=== PATIENT | male | born 1965 | race Caucasian/White ===

== ENCOUNTER 2020-12-04 18:41 | Inpatient (IN) | payer MEDICARE ==
[2020-12-04] MEDS ORDERED: fentaNYL Citrate/PF 2,000 MCG in Sodium Chloride 0.9% 60 ML IV SCH (19:00)
[2020-12-04] MEDS ORDERED: Albuterol Sulfate 2.5 mg/3 ml Neb ONE (19:14)
[2020-12-04 19:30] LABS: #Eosinphils 0.1 thou/uL (0.0-0.7); #Lymphocytes 0.6 thou/uL (1.20-3.40); #Monocytes 1.1 thou/uL (0.11-0.59); #Neutrophils 14.9 thou/uL (1.40-6.50); %Basophils 0.2 % (0.0-1.0); %Eosinophils 0.3 % (0.0-10.0); %Lymphocytes 3.6 % (21.0-51.0); %Monocytes 6.3 % (0.0-10.0); %Neutrophils 89.6 % (42.0-75.0); Hemoglobin 13.5 g/dL (14.0-18.0); Mean Corpuscular HGB CONC 31.9 g/dL (32.0-36.0); Mean Corpuscular Hemoglobin 29.2 pg (27.0-31.0); Mean Corpuscular Volume 91.5 fL (78.0-98.0); Mean Platelet Volume 7.6 fL (7.4-10.4); Platelet Count 295 thou/uL (130-400); RBC Distribution Width 13.9 % (11.5-14.5); Red Blood Cell (RBC) Count 4.61 mill/uL (4.70-6.10); White Blood Cell (WBC) Count 16.6 thou/uL (4.8-10.8)
[2020-12-04 19:37] LABS: Actual Bicarbonate (HCO3a) 26.8 mEq/L (22-28); Analyzer IN Cardio ER; Base Excess (BEa) -1.8 mEq/L (-2.0 to +3.0); Calcium, Ionized (arterial) 1.13 mmol/L (1.12-1.30); Carboxyhemoglobin (COHb) 1.6 gm% (0.0-3.0); Hemoglobin (Hb) 13.4 g/dL (14.0-18.0); O2 Tension (PaO2), arterial 301.8 mmHg (80.0-100.0); Potassium - ABG Lab 4.41 mmol/L (3.70-5.30)
[2020-12-04 19:54] LABS: ALT (SGPT) 21 U/L (8-55); AST (SGOT) 23 U/L (5-34); Albumin 3.4 g/dL (3.5-5.0); Alkaline Phosphatase 114 U/L (40-110); Anion Gap 13 mmol/L (10-20); BUN (Urea Nitrogen) 16 mg/dL (8.4-25.7); Bilirubin, Total 0.4 mg/dL (0.2-1.2); Calc. Creatinine Clearance 0 mL/min (70-130); Calcium 8.1 mg/dL (7.8-10.44); Carbon Dioxide 31 mmol/L (22-29); Chloride 97 mmol/L (98-107); Globulin 3.5 g/dL (2.4-3.5); Glucose 248 mg/dL (70-105); Potassium 4.9 mmol/L (3.5-5.1); Protein, Total 6.9 g/dL (6.0-8.3); Sodium 136 mmol/L (136-145)
[2020-12-04 19:57] LABS: CO2 Tension 63.6 mmHg (35.0-45.0); pH, Arterial 7.24 (7.35-7.45)
[2020-12-04 19:58] LABS: Puncture Site LBA
--- NOTE | 2020-12-04 20:00 | RAD ---
CHEST ONE VIEWS: 12/04/20 INDICATIONS: History of intubation with respiratory failure. COMPARISON: Prior exam dated 12/04/20 at 5:18 p.m. FINDINGS: There is increased air space opacity involving the right lung base suspicious for aspiration. The pat ient is intubated. Gastric catheter appears to project below the left hemidiaphragm beyond the field of view. Left lung base appears relatively clear. No pneumothorax is evident. No acute osseous abnorm ality is evident. IMPRESSION: Worsening air space opacity of the right lower lobe may reflect aspiration or pneumonia. POS: BH
[2020-12-04 20:27] LABS: CKMB 4.2 ng/mL (0-6.6)
[2020-12-04] MEDS ORDERED: Acetaminophen 650 MG Suppository PR PRN (20:50)
[2020-12-04] MEDS ORDERED: Propofol 1,000 MG/100 ML VIAL IV ONE (21:35)
[2020-12-04] MEDS ORDERED: Fentanyl BOLUS 250 ML IVPB PRN (21:45)
[2020-12-04] MEDS ORDERED: Propofol BOLUS 1,000 MG/100 ML VIAL IV PRN (21:45)
[2020-12-04] MEDS ORDERED: DISCONTINUE PREVIOUS NARCOTIC PAIN MEDICATIONS AND BENZODIAZEPINES FS SCH (21:45)
[2020-12-04] MEDS ORDERED: Ventilator Sedation Protocol 1 EACH FS SCH (21:45)
[2020-12-04] MEDS ORDERED: Morphine 2 MG/ML VIAL SLOW IVP PRN (21:45)
[2020-12-04] MEDS ORDERED: Vecuronium 10 MG VIAL ONE (21:57)
[2020-12-04] MEDS ORDERED: Sterile Water 10 ML ONE (21:57)
[2020-12-04] MEDS ORDERED: cefTRIAXone\\ROCEPHIN 1 GM in Sodium Chloride 0.9% 100 ML IVPB SCH (22:00)
--- NOTE | 2020-12-04 22:37 | PDOC.HHP ---
Hospitalist HPI - History of Present Illness SOB, Brought in on ventilator support History of Present Illness: This is a 55-year-old male patient with a history of COPD, hypertension and heart failure who was transferred from [place]. Apparently he suffered respiratory arrest at home likely secondary to COPD exacerbation and pneumonia. His was in the room at the time of my evaluation. He was on the ventilator. She notes that he has been having intermittent shortness of breath for the past couple of days however today it became severe. The activated EMS. On EMS arrival he suddenly went into respiratory arrest and the attempted intubation. He was intubated with a Quinn tube and this was exc hanged with endotracheal intubation on arrival at [place]. On arrival at [place] his blood pressure was 144/85, pulse 113, saturating 100% on 5 valve mask. His labs showed ABG, pH 7.24, PCO2 63.6, PO2 301. CBC showed leukocytosis of 16.6 with no bands but neutrophilia. Hemoglobin is 13.5 and platelets 295. Chemistry showed creatinine 1. Fall with no baseline in chart. Bicarb was 31 glucose 248. Troponin was 0.554 and lactate was 0.8. His initial chest x-ray seemed relatively clear however repeat lactate increased to call opacity in the right lung base suspicious for aspiration. He was started on azithromycin, Rocephin and duo nebs. Also received 250mg Solu-Medrol. He was then referred to us for further evaluation. While here he received albuterol inhalation and fentanyl for sedation. Repeat troponin*reduction from 0.5-0.015. Hospitalist team consulted and was admitted to CCU. While she was In CCU it was noted that his peak pressure was elevated at 48 which did not resolve with respiration. She got as needed rocuronium for paralysis which improved his peak pressurethis was done in consultation with pulmonology Repeat ABG however showed worsening pH down to 7.18 in spite of reducing bicarb. Lactic was elevated to 3.5. He was started on abscess protocol with 30 mils per KG fluids antibiotics changed to vancomycin and Zosyn with azithromycin. Hospitalist ROS - Review of Systems ROS unobtainable: due to mental status - Medication Medications: Active Medications Generic Name Dose Route Start Last Admin Trade Name Freq PRN Reason Stop Dose Admin Albuterol/Ipratropium 3 ml 12/04/20 22:30 12/04/20 21:53 Ipratropium/Albuterol Sulfate 3 Ml Neb NEB 3 ml [id number] RUBIA Administration Ceftriaxone Sodium 1 gm/ 100 mls @ 200 mls/hr 12/04/20 22:00 12/04/20 22:35 Sodium Chloride IVPB 100 mls Q24HR RUBIA Administration Hospitalist History - Past Medical History Other Medical History: Hypertension, COPD, heart failure - Family History Family History: reports: no pertinent history - Social History Smoking Status: Current every day smoker Alcohol: reports: None Living Situation: With Family - Exam General - other findings: Intubated and nonverbal. Eye - other findings: Pupils constricted minimally reactive bilaterally ENT: normocephalic atraumatic, no oropharyngeal lesions Heart: RRR, no murmur, no gallops Respiratory: CTAB, no wheezes, no rales, no ronchi Gastrointestinal - other findings: Abdomen obese, bowel sounds present Extremities: no cyanosis, no clubbing, 1+ LE edema Neurological - other findings: Very little spontaneous movement. On sedation Psychiatric - other findings: Unable to assess Hospitalist Results - Labs Result Diagrams: 12/04/20 19:19 12/04/20 23:42 Lab results: WBC 16.6 thou/uL (4.8-10.8) H 12/04/20 19:19 Hgb 13.5 g/dL (14.0-18.0) L 12/04/20 19:19 Hct 42.2 % (42.0-52.0) 12/04/20 19:19 MCV 91.5 fL (78.0-98.0) 12/04/20 19:19 Plt Count 295 thou/uL (130-400) 12/04/20 19:19 Neutrophils % 89.6 % (42.0-75.0) H 12/04/20 19:19 ABG pH 7.24 (7.35-7.45) L* 12/04/20 19:30 ABG pCO2 63.6 mmHg (35.0-45.0) H* 12/04/20 19:30 ABG pO2 301.8 mmHg (80.0-100.0) H 12/04/20 19:30 Sodium 136 mmol/L (136-145) 12/04/20 19:19 Potassium 4.9 mmol/L (3.5-5.1) 12/04/20 19:19 Chloride 97 mmol/L (98-107) L 12/04/20 19:19 Carbon Dioxide 31 mmol/L (22-29) H 12/04/20 19:19 BUN 16 mg/dL (8.4-25.7) 12/04/20 19:19 Creatinine 1.32 mg/dL (0.7-1.3) H 12/04/20 19:19 Glucose 248 mg/dL (70-105) H 12/04/20 19:19 Calcium 8.1 mg/dL (7.8-10.44) 12/04/20 19:19 Total Bilirubin 0.4 mg/dL (0.2-1.2) 12/04/20 19:19 AST 23 U/L (5-34) 12/04/20 19:19 ALT 21 U/L (8-55) 12/04/20 19:19 Alkaline Phosphatase 114 U/L (40-110) H 12/04/20 19:19 CK-MB (CK-2) 4.2 ng/mL (0-6.6) 12/04/20 19:19 Troponin I 0.554 ng/mL (< 0.028) H* 12/04/20 19:19 B-Natriuretic Peptide 10.1 pg/mL (0-100) 12/04/20 19:19 Serum Total Protein 6.9 g/dL (6.0-8.3) 12/04/20 19:19 Albumin 3.4 g/dL (3.5-5.0) L 12/04/20 19:19 Hospitalist H&P A/P - Plan Plan: This a 55-year-old male patient history of COPD, hypertension who was brought in intubated from [place] on account of respiratory arrest. Likely etiology COPD exacerbation/pneumonia. Acute hypoxic respiratory failure In the setting of COPD/pneumonia On ventilator support Continue monitor Appreciate pulmonology input. Sepsis Repeat lactate went up from 0.8-3.5 Also patient having leukocytosis and respiratory arrest. 30 mils per KG IV fluids Trend lactate Initially on azithromycin and ceftriaxone. We will do Zosyn and vancomycin for now Follow-up blood culturestaken at medicine COPD exacerbation Solu-Medrol, duo nebs Antibiotics as above. Pneumonia Likely aspiration in left lower base Continue antibiotics above History of heart failure No echo on file Echo in a.m. NSTEMI Initial troponin 0.5 now down to within normal range. Likely demand/hypoxia Monitor on telemetry. CODE STATUSfull code VTE prophylaxislow
[2020-12-04] MEDS: Azithromycin 500 MG in Sodium Chloride 0.9% 250 ML 250 ML IVPB SCH (22:51)
[2020-12-04 22:57] LABS: Actual Bicarbonate (HCO3a) 18.7 mEq/L (22-28); Base Excess (BEa) -9.2 mEq/L (-2.0 to +3.0); CO2 Tension 50.8 mmHg (35.0-45.0); Calcium, Ionized (arterial) 0.43 mmol/L (1.12-1.30); Carboxyhemoglobin (COHb) 1.5 gm% (0.0-3.0); Hemoglobin (Hb) 8.5 g/dL (14.0-18.0); Potassium - ABG Lab 2.04 mmol/L (3.70-5.30)
[2020-12-04 23:00] LABS: O2 Tension (PaO2), arterial 45.5 mmHg (80.0-100.0); pH, Arterial 7.18 (7.35-7.45)
[2020-12-04 23:01] LABS: Puncture Site RBA; Troponin I 0.015 ng/mL (< 0.028)
[2020-12-04] MEDS ORDERED: Sodium Chloride 0.9% 500 ML IV SCH (23:30)
[2020-12-04] MEDS ORDERED: SODIUM CHLORIDE 0.9% IV SCH (23:45)
--- NOTE | 2020-12-04 23:46 | RAD ---
PORTABLE CHEST: Date: 12/04/2020 HISTORY: Hypoxia. COMPARISON: Earlier exam same date. FINDINGS: Endotracheal and NG tubes are in satisfactory position. The right lower lobe parenchymal changes seen on the prior examination have almost completely resolved. IMPRESSION: Almost complete resolution of the right basilar parenchymal lung change. POS: OFF
[2020-12-05] MEDS: methylPREDNISolone Sod Succ 40 MG VIAL IVP SCH ×5 (00:16→23:12)
[2020-12-05] MEDS: Vancomycin 1.5 GRAM/300 ML BAG 1.5 GM in Premix Bag 1 BAG IVPB SCH ×3 (00:16→23:12)
[2020-12-05] MEDS: Vecuronium 10 MG VIAL IV PRN ×7 (00:27→15:48)
[2020-12-05] MEDS: Sterile Water 10 ML VIAL IVP PRN ×3 (00:27→04:43)
[2020-12-05 00:29] LABS: AST (SGOT) 24 U/L (5-34); Albumin 3.3 g/dL (3.5-5.0); Anion Gap 17 mmol/L (10-20); BUN (Urea Nitrogen) 14 mg/dL (8.4-25.7); Bilirubin, Total 0.5 mg/dL (0.2-1.2); Calc. Creatinine Clearance 92 mL/min (70-130); Calcium 8.3 mg/dL (7.8-10.44); Carbon Dioxide 25 mmol/L (22-29); Chloride 99 mmol/L (98-107); Globulin 3.6 g/dL (2.4-3.5); Glucose 184 mg/dL (70-105); Potassium 5.1 mmol/L (3.5-5.1); Protein, Total 6.9 g/dL (6.0-8.3); Sodium 136 mmol/L (136-145)
[2020-12-05 00:30] LABS: Alkaline Phosphatase 109 U/L (40-110)
[2020-12-05 00:33] LABS: ALT (SGPT) 21 U/L (8-55)
[2020-12-05] MEDS: Sodium Chloride 0.9% 1,000 ML IV SCH ×4 (01:00→21:24)
[2020-12-05] MEDS ORDERED: Sodium Bicarb 50 MEQ/50 ML Abboject 8.4% SYRINGE IVP SCH (01:30)
[2020-12-05] MEDS: Piperacillin/Tazobactam 4.5 GM in Sodium Chloride 0.9% 100 ML IVPB SCH ×3 (01:45→17:31)
[2020-12-05 02:26] LABS: #Lymphocytes 0.6 thou/uL (1.20-3.40); #Monocytes 0.6 thou/uL (0.11-0.59); #Neutrophils 17.5 thou/uL (1.40-6.50); %Basophils 0.2 % (0.0-1.0); %Eosinophils 0.2 % (0.0-10.0); %Monocytes 3.3 % (0.0-10.0); %Neutrophils 93.3 % (42.0-75.0); Hemoglobin 12.3 g/dL (14.0-18.0); Mean Corpuscular HGB CONC 30.9 g/dL (32.0-36.0); Mean Corpuscular Hemoglobin 28.2 pg (27.0-31.0); Mean Corpuscular Volume 91.3 fL (78.0-98.0); Mean Platelet Volume 7.7 fL (7.4-10.4); Platelet Count 258 thou/uL (130-400); RBC Distribution Width 13.7 % (11.5-14.5); Red Blood Cell (RBC) Count 4.34 mill/uL (4.70-6.10); White Blood Cell (WBC) Count 18.7 thou/uL (4.8-10.8)
[2020-12-05 02:44] LABS: Lactic Acid 4.4 mmol/L (0.5-2.2)
[2020-12-05 02:59] LABS: Troponin I 0.031 ng/mL (< 0.028)
[2020-12-05 03:28] LABS: Anion Gap 19 mmol/L (10-20); BUN (Urea Nitrogen) 15 mg/dL (8.4-25.7); Calc. Creatinine Clearance 113 mL/min (70-130); Calcium 7.8 mg/dL (7.8-10.44); Carbon Dioxide 22 mmol/L (22-29); Chloride 103 mmol/L (98-107); Glucose 167 mg/dL (70-105); Potassium 4.6 mmol/L (3.5-5.1); Sodium 139 mmol/L (136-145)
[2020-12-05 06:18] LABS: Lactic Acid 3.3 mmol/L (0.5-2.2)
[2020-12-05] MEDS ORDERED: Fentanyl CADD 100 ML ONE ×2 (06:26→19:24)
[2020-12-05] MEDS: Fentanyl CADD 100 ML IV SCH ×2 (06:32→19:28)
[2020-12-05] MEDS: Enoxaparin Sodium 40 MG/0.4 ML SYRINGE SC SCH (08:20)
[2020-12-05] MEDS: Lorazepam 2 MG/ML VIAL SLOW IVP PRN ×4 (08:20→15:47)
[2020-12-05] MEDS ORDERED: Vancomycin 1.5 GRAM/300 ML BAG 1.5 GM in Premix Bag 1 BAG IVPB SCH (09:00)
[2020-12-05 10:52] LABS: Actual Bicarbonate (HCO3a) 28.9 mEq/L (22-28); Base Excess (BEa) 1.8 mEq/L (-2.0 to +3.0); Calcium, Ionized (arterial) 1.12 mmol/L (1.12-1.30); Carboxyhemoglobin (COHb) 0.4 gm% (0.0-3.0); Hemoglobin (Hb) 12.3 g/dL (14.0-18.0); O2 Tension (PaO2), arterial 88.8 mmHg (80.0-100.0); Potassium - ABG Lab 4.64 mmol/L (3.70-5.30); pH, Arterial 7.32 (7.35-7.45)
[2020-12-05 11:06] LABS: Puncture Site RRA
--- NOTE | 2020-12-05 11:16 | CON ---
DATE OF CONSULTATION: 12/05/2020 This is a 45 minutes of critical care time. REASON FOR CONSULTATION: Acute respiratory failure. HISTORY OF THE PRESENT ILLNESS: This is a 55-year-old male, who was brought to the hospital last night as a transfer from [place]. He suffered a respiratory arrest secondary to a COPD exacerbation. He was intubated, placed on steroids. He has been found to have high peak compared to plateau pressures. He will wake up on mechanical ventilation. PAST MEDICAL HISTORY: COPD, congestive heart failure, and hypertension. PAST SURGICAL HISTORY: None. SOCIAL HISTORY: Apparently smokes at least a pack per day. Does not consume alcohol. Does not use any illicit drugs. MEDICATIONS: Prior to admission, not known at this time. Current inpatient medications reviewed, see chart. REVIEW OF SYSTEMS: Not obtainable. ALLERGIES: NONE. FAMILY MEDICAL HISTORY: Negative. PHYSICAL EXAMINATION: VITAL SIGNS: Temperature 97.7, pulse 90, blood pressure 97/60, respiratory rate 25, and O2 saturation 95%. He is 5 feet 8 inches and weight is 218 pounds. HEENT: Unremarkable. NECK: No adenopathy or JVD. LUNGS: Tight end-expiratory wheezing. CARDIAC: No murmur. ABDOMEN: Obese, soft, and nontender. EXTREMITIES: No edema. LABORATORY DATA: White blood cell count 18.7, hematocrit 39.7, and platelet count 258. Last ABG was last night, pH was 7.18, pCO2 of 50, and pO2 of 45. I suspect that was probably a venous gases as his initial blood gas showed normal oxygenation. Sodium is 139, potassium 4.6, chloride 103, CO2 of 22, BUN 15, creatinine 0.9, and glucose 167. Lactate is 3.3. His x-ray shows hyperinflation with flattened diaphragms. No mass, effusion, or infiltrate. His BNP is 10.1. ASSESSMENT: 1. Chronic obstructive pulmonary disease exacerbation. 2. Acute hypoxic and hypercapnic respiratory failure requiring mechanical ventilation. PLAN: The patient is on multiple antibiotics. I do not really see a reason to put him on vancomycin unless we know he has an underlying Staph infection, so I would advocate stopping that. He is on IV steroids and nebulization treatments. His nebulization treatments probably need to be increased every 3 hours given his degree of bronchospasm. I spoke with his sister at bedside. Job ID: [id number]
--- NOTE | 2020-12-05 15:22 | PDOC.HOSPP ---
- Subjective Encounter Date: 12/05/20 Encounter Time: 12:00 Subjective: Patient seen for follow-up regarding acute respiratory failure. Patient is intubated, could not complete review of systems. - Objective Vital Signs & Weight: Vital Signs (12 hours) Temp Pulse Resp Pulse Ox 12/05/20 15:04 91 12/05/20 14:00 22 H 12/05/20 12:00 98.2 F 22 H 12/05/20 10:31 90 12/05/20 10:00 22 H 12/05/20 08:00 22 H 12/05/20 07:24 99 12/05/20 07:11 78 12/05/20 07:00 97.7 F 12/05/20 06:00 22 H 12/05/20 04:00 98.5 F 22 H Weight Admit Weight 218 lb Weight 218 lb 11.177 oz Most Recent Monitor Data Heart Rate from ECG 93 NIBP 93/46 NIBP BP-Mean 61 Respiration from ECG 22 SpO2 97 I&O: 12/04/20 12/05/20 12/06/20 06:59 06:59 06:59 Intake Total 4604 250 Output Total 790 290 Balance 3814 -40 Result Diagrams: 12/05/20 02:19 12/05/20 02:19 Additional Labs: I reviewed patient's labs and MAR EKG Reviewed by me: Yes (Normal sinus rhythm on telemetry) Hospitalist ROS - Review of Systems ROS unobtainable: due to endotracheal tube - Medication Medications: Active Medications Generic Name Dose Route Start Last Admin Trade Name Freq PRN Reason Stop Dose Admin Albuterol/Ipratropium 3 ml 12/05/20 13:00 12/05/20 14:58 Ipratropium/Albuterol Sulfate 3 Ml Neb NEB 3 ml [id number] RUBIA Administration Enoxaparin Sodium 40 mg 12/05/20 09:00 12/05/20 08:20 Enoxaparin Sodium 40 Mg/0.4 Ml Syringe SC 40 mg 0900 RUBIA Administration Fentanyl 100 mls @ 0 mls/hr 12/04/20 21:45 12/05/20 06:32 Fentanyl Cadd IV 01/03/21 21:45 100 mls INF RUBIA Administration Protocol Per Protocol Azithromycin 500 mg/ Sodium 250 mls @ 250 mls/hr 12/04/20 22:30 12/04/20 22:51 Chloride IVPB 250 mls Q24HR RUBIA Administration Sodium Chloride 1,000 mls @ 100 mls/hr 12/04/20 23:45 12/05/20 09:19 Normal Saline 0.9% IV 1,000 mls .Q10H RUBIA Administration Vancomycin HCl 1.5 gm/ Device 300 mls @ 200 mls/hr 12/04/20 23:59 12/05/20 11:32 IVPB 300 mls 1200,2359 RUBIA Administration Piperacillin Sod/Tazobactam 100 mls @ 200 mls/hr 12/05/20 02:00 12/05/20 09:22 Sod 4.5 gm/ Sodium Chloride IVPB 100 mls 0200,1000,1800 RUBIA Administration Lorazepam 2 mg 12/04/20 21:45 12/05/20 13:34 Lorazepam 2 Mg/Ml Vial SLOW IVP 01/03/21 21:45 2 mg Q1H PRN Administration Breakthrough agitation Methylprednisolone Sodium Succinate 40 mg 12/04/20 23:59 12/05/20 11:32 Methylprednisolone Sod Succ 40 Mg Vial IVP 40 mg Q6HR RUBIA Administration Sterile Water 10 ml 12/04/20 22:04 12/05/20 04:43 Sterile Water 10 Ml Vial IVP 10 ml Q30MIN PRN Administration NEEDED FOR RECONSTITUTION Vecuronium [place] 10 mg 12/04/20 22:04 12/05/20 13:34 Vecuronium 10 Mg Vial IV 10 mg Q30MIN PRN Administration Spasm - Exam General - other findings: Intubated ENT: normocephalic atraumatic Neck: supple Heart: RRR Respiratory: CTAB Gastrointestinal: soft, non-tender Skin: no rashes Psychiatric - other findings: Unable to assess Hosp A/P - Plan Assessment/plan: Acute hypoxic respiratory failure History of COPD/pneumonia On ventilator support PCCM following Sepsis Continue Zosyn and vancomycin Follow-up blood cultures COPD exacerbation Continue Solu-Medrol, duo nebs Antibiotics as above. Pneumonia Continue Zosyn and vancomycin History of heart failure Follow-up on 2D echo NSTEMI Type II secondary to demand. Monitor on telemetry.
[2020-12-05] MEDS: Propofol 1,000 MG/100 ML VIAL IV PRN (21:23)
[2020-12-05] MEDS: Azithromycin 500 MG in Sodium Chloride 0.9% 250 ML 250 ML IVPB SCH (21:52)
[2020-12-06] MEDS: Piperacillin/Tazobactam 4.5 GM in Sodium Chloride 0.9% 100 ML IVPB SCH ×3 (01:07→17:32)
[2020-12-06 03:48] LABS: Anion Gap 12 mmol/L (10-20); BUN (Urea Nitrogen) 22 mg/dL (8.4-25.7); Calc. Creatinine Clearance 143 mL/min (70-130); Calcium 7.4 mg/dL (7.8-10.44); Carbon Dioxide 23 mmol/L (22-29); Chloride 107 mmol/L (98-107); Glucose 169 mg/dL (70-105); Potassium 4.3 mmol/L (3.5-5.1); Sodium 138 mmol/L (136-145)
[2020-12-06] MEDS: Sodium Chloride 0.9% 1,000 ML IV SCH ×2 (04:07→17:34)
[2020-12-06 04:20] LABS: Band 23 % (5-11); Hemoglobin 11.3 g/dL (14.0-18.0); Hypochromia SLIGHT = 6-15 cells (100X) (0-5/hpf); Lymphocytes 5 % (21-51); MDiff Complete? YES; Mean Corpuscular HGB CONC 31.8 g/dL (32.0-36.0); Mean Corpuscular Hemoglobin 28.9 pg (27.0-31.0); Mean Corpuscular Volume 91.1 fL (78.0-98.0); Mean Platelet Volume 8.3 fL (7.4-10.4); Monocytes 6 % (0-10); Neutrophil 66 % (42-75); Platelet Count 289 thou/uL (130-400); Platelet Morphology Comment Appears Adequate; RBC Distribution Width 13.9 % (11.5-14.5); White Blood Cell (WBC) Count 20.5 thou/uL (4.8-10.8)
[2020-12-06] MEDS: methylPREDNISolone Sod Succ 40 MG VIAL IVP SCH ×4 (05:06→23:23)
[2020-12-06] MEDS: Propofol 1,000 MG/100 ML VIAL IV PRN ×2 (05:35→13:55)
--- NOTE | 2020-12-06 08:04 | RAD ---
Portable frontal chest radiograph: 12/06/2020 COMPARISON: 12/04/2020 HISTORY: Pneumonia FINDINGS: Stable endotracheal tube and nasogastric tube. No pneumothorax is evident. Diffuse increase d linear interstitial density noted with a perihilar and bibasilar predominance. Airspace disease noted in the lung bases, left greater than right. Aeration has worsened within the lung bases when co mpared to the 12/04/2020 exam. IMPRESSION: Nonspecific interstitial and alveolar opacity, most significant within the lung bases, wo rsened when compared to the most recent prior exam. Question Covid pneumonia.
[2020-12-06] MEDS: Enoxaparin Sodium 40 MG/0.4 ML SYRINGE SC SCH (08:57)
[2020-12-06] MEDS: Pantoprazole 40 MG VIAL IVP SCH (08:58)
[2020-12-06] MEDS: Nicotine 21 MG PATCH TD SCH (08:58)
[2020-12-06] MEDS ORDERED: Fentanyl CADD 100 ML ONE (09:36)
[2020-12-06] MEDS: Fentanyl CADD 100 ML IV SCH (09:42)
[2020-12-06 11:41] LABS: Vancomycin, Trough 13.5 ug/mL
[2020-12-06] MEDS: Bacteriostatic Water 30 ML VIAL FS PRN ×2 (11:51→17:33)
[2020-12-06] MEDS: Vancomycin HCl 1.75 GM in Sodium Chloride 0.9% 500 ML IVPB SCH ×2 (12:26→23:47)
--- NOTE | 2020-12-06 17:19 | PDOC.HOSPP ---
- Subjective Encounter Date: 12/06/20 Encounter Time: 11:00 Subjective: Patient seen for follow-up regarding hypoxic respiratory failure. Could not complete review of systems secondary to intubated status. - Objective Vital Signs & Weight: Vital Signs (12 hours) Temp Pulse Resp Pulse Ox 12/06/20 14:50 92 12/06/20 12:00 98.9 F 12/06/20 08:00 98.4 F 22 H 96 12/06/20 07:55 78 12/06/20 06:00 23 H Weight Admit Weight 218 lb Weight 224 lb 13.944 oz Most Recent Monitor Data Heart Rate from ECG 93 NIBP 113/63 NIBP BP-Mean 79 Respiration from ECG 16 SpO2 94 I&O: 12/05/20 12/06/20 12/07/20 06:59 06:59 06:59 Intake Total 4604 3781 550 Output Total 790 1020 410 Balance 3814 2761 140 Result Diagrams: 12/06/20 03:00 12/06/20 03:00 Additional Labs: Labs and MAR reviewed by nv Hospitalist ROS - Review of Systems ROS unobtainable: due to endotracheal tube - Medication Medications: Active Medications Generic Name Dose Route Start Last Admin Trade Name Freq PRN Reason Stop Dose Admin Albuterol/Ipratropium 3 ml 12/05/20 13:00 12/06/20 14:49 Ipratropium/Albuterol Sulfate 3 Ml Neb NEB 3 ml [id number] RUBIA Administration Enoxaparin Sodium 40 mg 12/05/20 09:00 12/06/20 08:57 Enoxaparin Sodium 40 Mg/0.4 Ml Syringe SC 40 mg 0900 RUBIA Administration Fentanyl 100 mls @ 0 mls/hr 12/04/20 21:45 12/06/20 09:42 Fentanyl Cadd IV 01/03/21 21:45 100 mls INF RUBIA Administration Protocol Per Protocol Azithromycin 500 mg/ Sodium 250 mls @ 250 mls/hr 12/04/20 22:30 12/05/20 21:52 Chloride IVPB 250 mls Q24HR RUBIA Administration Sodium Chloride 1,000 mls @ 100 mls/hr 12/04/20 23:45 12/06/20 04:07 Normal Saline 0.9% IV 1,000 mls .Q10H RUBIA Administration Piperacillin Sod/Tazobactam 100 mls @ 200 mls/hr 12/05/20 02:00 12/06/20 09:03 Sod 4.5 gm/ Sodium Chloride IVPB 100 mls 0200,1000,1800 RUBIA Administration Vancomycin HCl 1.75 gm/ Sodium 500 mls @ 250 mls/hr 12/06/20 12:00 12/06/20 12:26 Chloride IVPB 500 mls 1200,2359 RUBIA Administration Lorazepam 2 mg 12/04/20 21:45 12/05/20 15:47 Lorazepam 2 Mg/Ml Vial SLOW IVP 01/03/21 21:45 2 mg Q1H PRN Administration Breakthrough agitation Methylprednisolone Sodium Succinate 40 mg 12/04/20 23:59 12/06/20 11:51 Methylprednisolone Sod Succ 40 Mg Vial IVP 40 mg Q6HR RUBIA Administration Nicotine 21 mg 12/06/20 09:00 12/06/20 08:58 Nicotine 21 Mg Patch TD 21 mg DAILY RUBIA Administration Pantoprazole Sodium 40 mg 12/06/20 09:00 12/06/20 08:58 Pantoprazole 40 Mg Vial IVP 40 mg DAILY RUBIA Administration Propofol 1,000 mg 12/04/20 21:45 12/06/20 13:55 Propofol 1,000 Mg/100 Ml Vial IV 01/03/21 21:45 1,000 mg INF PRN Administration TO ACHIEVE GOAL RASS Protocol Sterile Water 10 ml 12/04/20 22:04 12/05/20 04:43 Sterile Water 10 Ml Vial IVP 10 ml Q30MIN PRN Administration NEEDED FOR RECONSTITUTION Sterile Water 1 ml 12/04/20 22:15 12/06/20 11:51 Bacteriostatic Water 30 Ml Vial FS 1 ml PRN PRN Administration RECONSTITUTION Vecuronium [place] 10 mg 12/04/20 22:04 12/05/20 15:48 Vecuronium 10 Mg Vial IV 10 mg Q30MIN PRN Administration Spasm - Exam General - other findings: Intubated, obese ENT: normocephalic atraumatic Neck: no thyromegaly, no lymphadenopathy Heart: RRR Respiratory: CTAB Gastrointestinal: soft, normal bowel sounds Skin: no rashes Psychiatric - other findings: Could not assess Hosp A/P - Plan Assessment/plan: Acute hypoxic respiratory failure Secondary to COPD exacerbation. Continue ventilatory support. Pulmonary and critical care medicine following. Sepsis Patient is on Zosyn and vancomycin Follow-up blood cultures COPD exacerbation Patient is on Solu-Medrol, duo nebs Continue Zosyn and vancomycin Pneumonia Continue Zosyn and vancomycin History of heart failure Diastolic heart failure based on 2D echocardiogram, stable. NSTEMI Type II secondary to demand. Continue to monitor on telemetry.
--- NOTE | 2020-12-06 18:53 | PRG ---
DATE OF SERVICE: 12/06/2020 SUBJECTIVE: Rigo Mathur remains mechanically ventilated. He is sedated. Heart rates in the 90s. FiO2 was turned down to 50% today. Respiratory rate was turned down. OBJECTIVE: VITAL SIGNS: Blood pressure 113/63. LUNGS: Distant and clear. He still has a prolonged expiratory phase. HEART: Regular rhythm. ABDOMEN: Soft. EXTREMITIES: Without asymmetry or edema. LABORATORY DATA: Electrolytes are normal. Creatinine is 0.8, potassium is 4.3. White count 20.5, hemoglobin 11.3, platelets 289. PH yesterday was 7.32, CO2 of 57, pO2 of 88. IMPRESSION: Severe chronic obstructive pulmonary disease. His sister is at the bedside and said whenever he gets treated for flare-up of his shortness of breath, he gets better, which I suspect is steroid related. Since he gets off steroids, he starts gradually getting more and more short of breath. Unfortunately, he has been unable to quit smoking, which aggravates the underlying problem. We will continue to work towards weaning, which will be a slow process. I suspect he will eventually extubate without a tracheostomy that will probably be a few days down the road. I have explained to the sister we will assess this on the day by day basis. He has no spouse or children. His sister is the point of contact from what I understands. Job ID: [id number]
[2020-12-06] MEDS: Lorazepam 2 MG/ML VIAL SLOW IVP PRN (20:39)
[2020-12-06] MEDS: Azithromycin 500 MG in Sodium Chloride 0.9% 250 ML 250 ML IVPB SCH (21:30)
[2020-12-07] MEDS: Lorazepam 2 MG/ML VIAL SLOW IVP PRN ×4 (00:05→18:05)
[2020-12-07] MEDS: Propofol 1,000 MG/100 ML VIAL IV PRN ×4 (00:31→21:42)
[2020-12-07] MEDS: Acetaminophen 325 MG TAB PO PRN (00:42)
[2020-12-07] MEDS ORDERED: Fentanyl CADD 100 ML ONE ×2 (00:50→17:24)
[2020-12-07] MEDS: Fentanyl CADD 100 ML IV SCH ×2 (00:52→17:28)
[2020-12-07] MEDS: Piperacillin/Tazobactam 4.5 GM in Sodium Chloride 0.9% 100 ML IVPB SCH ×3 (02:17→17:49)
[2020-12-07] MEDS: Sodium Chloride 0.9% 1,000 ML IV SCH ×3 (02:21→17:09)
[2020-12-07 03:44] LABS: #Lymphocytes 0.7 thou/uL (1.20-3.40); #Monocytes 0.9 thou/uL (0.11-0.59); %Eosinophils 0.2 % (0.0-10.0); %Lymphocytes 4.2 % (21.0-51.0); %Monocytes 4.8 % (0.0-10.0); %Neutrophils 90.7 % (42.0-75.0); Hemoglobin 11.4 g/dL (14.0-18.0); Mean Corpuscular HGB CONC 32.4 g/dL (32.0-36.0); Mean Corpuscular Hemoglobin 29.7 pg (27.0-31.0); Mean Corpuscular Volume 91.7 fL (78.0-98.0); Mean Platelet Volume 7.7 fL (7.4-10.4); Platelet Count 337 thou/uL (130-400); RBC Distribution Width 13.9 % (11.5-14.5); Red Blood Cell (RBC) Count 3.84 mill/uL (4.70-6.10); White Blood Cell (WBC) Count 17.6 thou/uL (4.8-10.8)
[2020-12-07 04:01] LABS: Anion Gap 12 mmol/L (10-20); BUN (Urea Nitrogen) 29 mg/dL (8.4-25.7); Calc. Creatinine Clearance 137 mL/min (70-130); Calcium 8.2 mg/dL (7.8-10.44); Carbon Dioxide 26 mmol/L (22-29); Chloride 106 mmol/L (98-107); Glucose 176 mg/dL (70-105); Potassium 5.3 mmol/L (3.5-5.1); Sodium 139 mmol/L (136-145)
[2020-12-07] MEDS: methylPREDNISolone Sod Succ 40 MG VIAL IVP SCH ×4 (04:59→23:29)
--- NOTE | 2020-12-07 08:33 | RAD ---
Portable frontal chest radiograph: 12/07/2020 COMPARISON: 12/06/2020 HISTORY: Pneumonia FINDINGS: Stable endotracheal tube and nasogastric tube. Stable partial consolidation/collapse of the left lower lobe with obscuration of left hemidiaphragm and slight blunting of left costophrenic angle. Persistent nonspecific perihilar and bibasilar interstitial and groundglass opacity. IMPRESSION: Nonspecific perihilar and bibasilar opacity, left greater than right. Stable lines and tu bes. No significant interval change.
[2020-12-07] MEDS: Nicotine 21 MG PATCH TD SCH (09:10)
[2020-12-07] MEDS: Enoxaparin Sodium 40 MG/0.4 ML SYRINGE SC SCH (09:10)
[2020-12-07] MEDS: Pantoprazole 40 MG VIAL IVP SCH (09:10)
[2020-12-07] MEDS: Vancomycin HCl 1.75 GM in Sodium Chloride 0.9% 500 ML IVPB SCH ×2 (13:24→23:29)
--- NOTE | 2020-12-07 17:31 | PDOC.HOSPP ---
- Subjective Encounter Date: 12/07/20 Encounter Time: 12:00 Subjective: Patient seen in follow-up for acute respiratory failure. Intubated, could not complete review of systems. - Objective Vital Signs & Weight: Vital Signs (12 hours) Temp Pulse Resp Pulse Ox 12/07/20 14:00 12 12/07/20 13:44 82 11 L 94 L 12/07/20 12:00 98.7 F 16 12/07/20 10:53 74 12/07/20 10:25 71 16 94 L 12/07/20 10:00 16 12/07/20 08:00 18 12/07/20 06:52 57 L 12/07/20 06:51 57 L 16 95 12/07/20 06:00 16 Weight Admit Weight 218 lb Weight 3.704 oz Most Recent Monitor Data Heart Rate from ECG 88 NIBP 112/63 NIBP BP-Mean 79 Respiration from ECG 13 SpO2 93 I&O: 12/06/20 12/07/20 12/08/20 06:59 06:59 06:59 Intake Total 3781 4614 160 Output Total 1020 1225 840 Balance 2761 3408 -680 Result Diagrams: 12/07/20 03:26 12/07/20 03:26 Hospitalist ROS - Review of Systems ROS unobtainable: due to endotracheal tube - Medication Medications: Active Medications Generic Name Dose Route Start Last Admin Trade Name Freq PRN Reason Stop Dose Admin Acetaminophen 650 mg 12/04/20 20:50 12/07/20 00:42 Acetaminophen 325 Mg Tab PO 650 mg Q4H PRN Administration Headache/Fever/Mild Pain (1-3) Albuterol/Ipratropium 3 ml 12/05/20 13:00 12/07/20 13:44 Ipratropium/Albuterol Sulfate 3 Ml Neb NEB 3 ml [id number] RUBIA Administration Enoxaparin Sodium 40 mg 12/05/20 09:00 12/07/20 09:10 Enoxaparin Sodium 40 Mg/0.4 Ml Syringe SC 40 mg 0900 RUBIA Administration Fentanyl 100 mls @ 0 mls/hr 12/04/20 21:45 12/07/20 17:28 Fentanyl Cadd IV 01/03/21 21:45 100 mls INF RUBIA Administration Protocol Per Protocol Azithromycin 500 mg/ Sodium 250 mls @ 250 mls/hr 12/04/20 22:30 12/06/20 21:30 Chloride IVPB 250 mls Q24HR RUBIA Administration Sodium Chloride 1,000 mls @ 100 mls/hr 12/04/20 23:45 12/07/20 17:09 Normal Saline 0.9% IV 1,000 mls .Q10H RUBIA Administration Piperacillin Sod/Tazobactam 100 mls @ 200 mls/hr 12/05/20 02:00 12/07/20 09 :09 Sod 4.5 gm/ Sodium Chloride IVPB 100 mls 0200,1000,1800 RUBIA Administration Vancomycin HCl 1.75 gm/ Sodium 500 mls @ 250 mls/hr 12/06/20 12:00 12/07/20 13:24 Chloride IVPB 500 mls 1200,2359 RUBIA Administration Lorazepam 2 mg 12/04/20 21:45 12/07/20 09:03 Lorazepam 2 Mg/Ml Vial SLOW IVP 01/03/21 21:45 2 mg Q1H PRN Administration Breakthrough agitation Methylprednisolone Sodium Succinate 40 mg 12/04/20 23:59 12/07/20 13:11 Methylprednisolone Sod Succ 40 Mg Vial IVP 40 mg Q6HR RUBIA Administration Nicotine 21 mg 12/06/20 09:00 12/07/20 09:10 Nicotine 21 Mg Patch TD 21 mg DAILY RUBIA Administration Pantoprazole Sodium 40 mg 12/06/20 09:00 12/07/20 09:10 Pantoprazole 40 Mg Vial IVP 40 mg DAILY RUBIA Administration Propofol 1,000 mg 12/04/20 21:45 12/07/20 11:26 Propofol 1,000 Mg/100 Ml Vial IV 01/03/21 21:45 1,000 mg INF PRN Administration TO ACHIEVE GOAL RASS Protocol Sterile Water 10 ml 12/04/20 22:04 12/05/20 04:43 Sterile Water 10 Ml Vial IVP 10 ml Q30MIN PRN Administration NEEDED FOR RECONSTITUTION Sterile Water 1 ml 12/04/20 22:15 12/06/20 17:33 Bacteriostatic Water 30 Ml Vial FS 1 ml PRN PRN Administration RECONSTITUTION Vecuronium [place] 10 mg 12/04/20 22:04 12/05/20 15:48 Vecuronium 10 Mg Vial IV 10 mg Q30MIN PRN Administration Spasm - Exam General - other findings: Intubated mechanically ventilated ENT: normocephalic atraumatic Heart: RRR Respiratory: CTAB Gastrointestinal: soft, non-tender Skin: no rashes Psychiatric - other findings: Could not assess Hosp A/P - Plan Assessment/plan: Acute hypoxic respiratory failure Secondary to COPD exacerbation. Patient is intubated and mechanically ventilated, in CCU. Sepsis Continue Zosyn and vancomycin Follow-up blood cultures COPD exacerbation Continue Solu-Medrol, duo nebs Continue Zosyn and vancomycin Pneumonia Continue Zosyn and vancomycin History of heart failure Stable NSTEMI Type II secondary to demand. Continue to monitor on telemetry.
--- NOTE | 2020-12-07 19:05 | PRG ---
DATE OF SERVICE: 12/07/2020 SUBJECTIVE: Mr. Mathur remains mechanically ventilated. His minute volume is about 8 L a minute. His rate was decreased to 10 and his minute volume stayed about 8 L a minute. OBJECTIVE: VITAL SIGNS: Have been stable. Blood pressure 160/90, heart rate is 100, respiratory rates in the 20s, oximetry is 99%. LUNGS: Clear. HEART: Regular rhythm. ABDOMEN: Soft. EXTREMITIES: Without asymmetry or edema. LABORATORY DATA: White count 17.6, hemoglobin 11.4, platelets 337. Sodium 139, potassium 5.3, chloride 106, bicarb 26, BUN 29, creatinine 0.87. IMPRESSION: Status post requirement for intubation after presenting unresponsive with respiratory failure. He has severe obstructive lung disease. He appears to be slowly improving. We will continue. Maybe tomorrow we will consider a spontaneous breathing trial with holding sedation, measuring weaning parameters. Fortunately, we do not have any blood gas we are not doing daily blood gases, but this I feel comfortable stating that we can follow him clinically and make a lot of these decisions without blood draws. Job ID: [id number]
[2020-12-07] MEDS: Azithromycin 500 MG in Sodium Chloride 0.9% 250 ML 250 ML IVPB SCH (22:27)
[2020-12-07 23:10] LABS: Vancomycin, Trough 18.1 ug/mL
[2020-12-08] MEDS: Lorazepam 2 MG/ML VIAL SLOW IVP PRN ×5 (01:09→23:34)
[2020-12-08] MEDS: Piperacillin/Tazobactam 4.5 GM in Sodium Chloride 0.9% 100 ML IVPB SCH ×3 (01:45→17:46)
[2020-12-08 04:33] LABS: Anion Gap 13 mmol/L (10-20); BUN (Urea Nitrogen) 28 mg/dL (8.4-25.7); Calc. Creatinine Clearance 0 mL/min (70-130); Calcium 7.5 mg/dL (7.8-10.44); Carbon Dioxide 23 mmol/L (22-29); Chloride 108 mmol/L (98-107); Glucose 183 mg/dL (70-105); Potassium 6.5 mmol/L (3.5-5.1); Sodium 137 mmol/L (136-145)
[2020-12-08] MEDS: Propofol 1,000 MG/100 ML VIAL IV PRN ×2 (04:41→08:06)
[2020-12-08] MEDS: methylPREDNISolone Sod Succ 40 MG VIAL IVP SCH ×4 (05:08→23:30)
[2020-12-08] MEDS: Sodium Chloride 0.9% 1,000 ML IV SCH ×2 (06:22→20:11)
[2020-12-08] MEDS ORDERED: Insulin Regular 300 UNITS/3 ML VIAL IVP SCH (06:45)
[2020-12-08] MEDS ORDERED: Dextrose 50% Abboject 50 ML SYRINGE SLOW IVP SCH (06:45)
[2020-12-08] MEDS ORDERED: CALCIUM GLUCONATE IVPB SCH (07:00)
[2020-12-08] MEDS ORDERED: SODIUM CHLORIDE 0.9% IVPB SCH (07:00)
[2020-12-08] MEDS: Enoxaparin Sodium 40 MG/0.4 ML SYRINGE SC SCH (08:06)
[2020-12-08] MEDS: Pantoprazole 40 MG VIAL IVP SCH (08:07)
[2020-12-08] MEDS: Nicotine 21 MG PATCH TD SCH (08:07)
[2020-12-08 08:14] LABS: #Eosinphils 0.1 thou/uL (0.0-0.7); #Lymphocytes 0.7 thou/uL (1.20-3.40); #Monocytes 0.4 thou/uL (0.11-0.59); #Neutrophils 13.1 thou/uL (1.40-6.50); %Eosinophils 0.7 % (0.0-10.0); %Lymphocytes 4.7 % (21.0-51.0); %Neutrophils 91.6 % (42.0-75.0); Hemoglobin 11.6 g/dL (14.0-18.0); Mean Corpuscular HGB CONC 30.1 g/dL (32.0-36.0); Mean Corpuscular Hemoglobin 28.2 pg (27.0-31.0); Mean Corpuscular Volume 93.7 fL (78.0-98.0); Mean Platelet Volume 7.9 fL (7.4-10.4); Platelet Count 346 thou/uL (130-400); RBC Distribution Width 13.9 % (11.5-14.5); Red Blood Cell (RBC) Count 4.11 mill/uL (4.70-6.10); White Blood Cell (WBC) Count 14.3 thou/uL (4.8-10.8)
--- NOTE | 2020-12-08 09:22 | RAD ---
PORTABLE CHEST: 12/08/20 PROVIDED CLINICAL HISTORY: Pneumonia. COMPARISON: 12/07/2020 FINDINGS: The cardiac silhouette appears enlarged. Endotracheal tube and enteric catheter are redemonstrated, i n similar positions. Bilateral air space disease appears similar to prior. There is no evidence for p neumothorax. Bilateral pleural fluid cannot be excluded. IMPRESSION: Similar radiographic appearance of the chest. POS: LEILANI
[2020-12-08] MEDS ORDERED: Fentanyl CADD 100 ML ONE (11:40)
[2020-12-08] MEDS ORDERED: Furosemide 40 MG/4 ML VIAL SLOW IVP SCH (11:45)
[2020-12-08] MEDS: Fentanyl CADD 100 ML IV SCH (11:52)
[2020-12-08] MEDS: Vancomycin HCl 1.75 GM in Sodium Chloride 0.9% 500 ML IVPB SCH ×2 (13:03→23:28)
--- NOTE | 2020-12-08 16:14 | PRG ---
DATE OF SERVICE: 12/08/2020 SUBJECTIVE: Rigo Mathur gets very agitated when sedation is decreased. We started Precedex today. Surprisingly, potassium was elevated earlier. This was to be repeated this afternoon after Kayexalate. OBJECTIVE: VITAL SIGNS: Stable, blood pressure 129/68, heart rate 66, FiO2 is at 45, and respiratory rate is 14. LUNGS: Remarkable for equal breath sounds. HEART: Regular rhythm. ABDOMEN: Soft and nontender. LABORATORY DATA: Sodium 137, potassium 6.5, chloride 108, bicarb 23, BUN 28, creatinine 0.7, glucose 183. White count 14.3, hemoglobin 11.6, and platelets 346. IMPRESSION: 1. Status post intubation after presenting unresponsive to the emergency room with chronic obstructive pulmonary disease exacerbation. 2. Ongoing heavy tobacco use. 3. Probable component of asthma, responsive to steroids according to his sister. PLAN: We will try the Precedex. We will have to repeat a potassium. We are not giving him any potassium supplements or potassium in nutrition at this point in time. We will not consider extubation until he can follow commands, is cooperative. Critical care time 30 min. Job ID: [id number] MTDD
[2020-12-08 16:34] LABS: Potassium 5.1 mmol/L (3.5-5.1)
--- NOTE | 2020-12-08 16:39 | PDOC.HOSPP ---
- Subjective Encounter Date: 12/08/20 Encounter Time: 12:00 Subjective: Patient seen in follow-up for respiratory failure. Currently intubated, could not complete review of systems. - Objective Vital Signs & Weight: Vital Signs (12 hours) Temp Pulse Resp BP Pulse Ox 12/08/20 15:26 66 129/68 12/08/20 14:00 16 12/08/20 12:00 12 12/08/20 10:22 76 12/08/20 10:00 14 12/08/20 08:00 98.6 F 13 93 L 12/08/20 06:50 74 12/08/20 06:00 12 Weight Admit Weight 218 lb Weight 235 lb 14.314 oz Most Recent Monitor Data Heart Rate from ECG 66 NIBP 130/70 NIBP BP-Mean 90 Respiration from ECG 14 SpO2 94 I&O: 12/07/20 12/08/20 12/09/20 06:59 06:59 06:59 Intake Total 4633 4533 895 Output Total 1225 2530 2140 Balance 3408 2002 -3744 Result Diagrams: 12/08/20 07:42 12/08/20 16:17 Additional Labs: Accuchecks 12/08/20 07:27 POC Glucose 237 H Labs and MAR reviewed by me Hospitalist ROS - Review of Systems ROS unobtainable: due to endotracheal tube - Medication Medications: Active Medications Generic Name Dose Route Start Last Admin Trade Name Freq PRN Reason Stop Dose Admin Acetaminophen 650 mg 12/04/20 20:50 12/07/20 00:42 Acetaminophen 325 Mg Tab PO 650 mg Q4H PRN Administration Headache/Fever/Mild Pain (1-3) Albuterol/Ipratropium 3 ml 12/05/20 13:00 12/08/20 15:47 Ipratropium/Albuterol Sulfate 3 Ml Neb NEB Not Given [id number] RUBIA Enoxaparin Sodium 40 mg 12/05/20 09:00 12/08/20 08:06 Enoxaparin Sodium 40 Mg/0.4 Ml Syringe SC 40 mg 0900 RUBIA Administration Fentanyl 100 mls @ 0 mls/hr 12/04/20 21:45 12/08/20 11:52 Fentanyl Cadd IV 01/03/21 21:45 100 mls INF RUBIA Administration Protocol Per Protocol Azithromycin 500 mg/ Sodium 250 mls @ 250 mls/hr 12/04/20 22:30 12/07/20 22:27 Chloride IVPB 250 mls Q24HR RUBIA Administration Sodium Chloride 1,000 mls @ 100 mls/hr 12/04/20 23:45 12/08/20 06:22 Normal Saline 0.9% IV 1,000 mls .Q10H RUBIA Administration Piperacillin Sod/Tazobactam 100 mls @ 200 mls/hr 12/05/20 02:00 12/08/20 09:13 Sod 4.5 gm/ Sodium Chloride IVPB 100 mls 0200,1000,1800 RUBIA Administration Vancomycin HCl 1.75 gm/ Sodium 500 mls @ 250 mls/hr 12/06/20 12:00 12/08/20 13:03 Chloride IVPB 500 mls 1200,2359 RUBIA Administration Lorazepam 2 mg 12/04/20 21:45 12/08/20 09:13 Lorazepam 2 Mg/Ml Vial SLOW IVP 01/03/21 21:45 2 mg Q1H PRN Administration Breakthrough agitation Methylprednisolone Sodium Succinate 40 mg 12/04/20 23:59 12/08/20 12:10 Methylprednisolone Sod Succ 40 Mg Vial IVP 40 mg Q6HR RUBIA Administration Nicotine 21 mg 12/06/20 09:00 12/08/20 08:07 Nicotine 21 Mg Patch TD 21 mg DAILY RUBIA Administration Pantoprazole Sodium 40 mg 12/06/20 09:00 12/08/20 08:07 Pantoprazole 40 Mg Vial IVP 40 mg DAILY RUBIA Administration Propofol 1,000 mg 12/04/20 21:45 12/08/20 08:06 Propofol 1,000 Mg/100 Ml Vial IV 01/03/21 21:45 1,000 mg INF PRN Administration TO ACHIEVE GOAL RASS Protocol Sterile Water 10 ml 12/04/20 22:04 12/05/20 04:43 Sterile Water 10 Ml Vial IVP 10 ml Q30MIN PRN Administration NEEDED FOR RECONSTITUTION Sterile Water 1 ml 12/04/20 22:15 12/06/20 17:33 Bacteriostatic Water 30 Ml Vial FS 1 ml PRN PRN Administration RECONSTITUTION Vecuronium [place] 10 mg 12/04/20 22:04 12/05/20 15:48 Vecuronium 10 Mg Vial IV 10 mg Q30MIN PRN Administration Spasm - Exam General - other findings: Intubated and mechanically ventilated Eye: anicteric sclera Heart: RRR Respiratory: CTAB Gastrointestinal: soft, non-tender Skin: normal turgor Psychiatric - other findings: Unable to assess Hosp A/P - Plan Assessment/plan: Acute hypoxic respiratory failure Continue mechanical ventilation. Acute respiratory failure is secondary to COPD exacerbation. Sepsis Patient is on Zosyn and vancomycin Preliminary blood cultures are negative so far. COPD exacerbation Continue Solu-Medrol, duo nebs Continue Zosyn and vancomycin Pneumonia Continue Zosyn and vancomycin History of heart failure Stable NSTEMI Type II secondary to demand.
[2020-12-08] MEDS: Azithromycin 500 MG in Sodium Chloride 0.9% 250 ML 250 ML IVPB SCH (21:54)
[2020-12-09] MEDS: Piperacillin/Tazobactam 4.5 GM in Sodium Chloride 0.9% 100 ML IVPB SCH ×3 (01:51→17:01)
[2020-12-09] MEDS: Sodium Chloride 0.9% 1,000 ML IV SCH ×3 (01:55→23:35)
[2020-12-09] MEDS ORDERED: Fentanyl CADD 100 ML ONE ×2 (02:20→17:40)
[2020-12-09] MEDS: Lorazepam 2 MG/ML VIAL SLOW IVP PRN ×6 (02:49→17:38)
[2020-12-09 04:36] LABS: Band 16 % (5-11); Hemoglobin 12.9 g/dL (14.0-18.0); Lymphocytes 6 % (21-51); MDiff Complete? YES; Mean Corpuscular HGB CONC 31.4 g/dL (32.0-36.0); Mean Corpuscular Volume 92.2 fL (78.0-98.0); Mean Platelet Volume 7.8 fL (7.4-10.4); Metamyelocyte 1 % (0-0); Monocytes 8 % (0-10); Neutrophil 69 % (42-75); Platelet Count 304 thou/uL (130-400); Platelet Morphology Comment Appears Adequate; Red Blood Cell (RBC) Count 4.46 mill/uL (4.70-6.10); White Blood Cell (WBC) Count 13.7 thou/uL (4.8-10.8)
[2020-12-09 05:10] LABS: Chloride 102 mmol/L (98-107); Potassium 4.8 mmol/L (3.5-5.1); Sodium 144 mmol/L (136-145)
[2020-12-09 05:11] LABS: Calcium 8.5 mg/dL (7.8-10.44); Glucose 200 mg/dL (70-105)
[2020-12-09 05:13] LABS: Anion Gap 13 mmol/L (10-20); Carbon Dioxide 34 mmol/L (22-29)
[2020-12-09 05:15] LABS: Calc. Creatinine Clearance 0 mL/min (70-130)
[2020-12-09 05:16] LABS: BUN (Urea Nitrogen) 33 mg/dL (8.4-25.7)
[2020-12-09] MEDS: methylPREDNISolone Sod Succ 40 MG VIAL IVP SCH ×4 (05:56→23:10)
[2020-12-09] MEDS: Enoxaparin Sodium 40 MG/0.4 ML SYRINGE SC SCH (08:28)
[2020-12-09] MEDS: Furosemide 40 MG/4 ML VIAL SLOW IVP SCH (08:29)
[2020-12-09] MEDS: Nicotine 21 MG PATCH TD SCH (08:29)
[2020-12-09] MEDS: Pantoprazole 40 MG VIAL IVP SCH (08:30)
--- NOTE | 2020-12-09 09:34 | RAD ---
PORTABLE CHEST: HISTORY: Respiratory distress. COMPARISON: Prior day's exam. FINDINGS: Heart size is within normal limits. Endotracheal and NG tubes are in satisfactory position. Bilater al airspace changes are fairly similar to the previous exam given differences in technique. IMPRESSION: Essentially stable arteriovenous malformation. POS: CHAS
--- NOTE | 2020-12-09 11:05 | PRG ---
DATE OF SERVICE: 12/09/2020 30 minutes of critical care time. SUBJECTIVE: The patient remains intubated on mechanical ventilation. He is sedated on Precedex and fentanyl, had a hard time getting in wake up and follow commands. OBJECTIVE: VITAL SIGNS: Temperature 98.8, pulse 71, blood pressure 163/74. 24-hour intake 4478, output 4350. HEENT: Unremarkable. NECK: No adenopathy or JVD. LUNGS: Generalized poor air movement. CARDIAC: S1 and S2. Regular. ABDOMEN: Soft and nontender. EXTREMITIES: Slight edema throughout. LABORATORY DATA: White blood cell count 13.7, hematocrit 41.1, and platelet count 304. Sodium 144, potassium 4.8, chloride 102, CO2 34, BUN 33, creatinine 0.9, glucose 200. He is currently on SIMV rate of 10, tidal volume 470, PEEP 8, FiO2 45%. ASSESSMENT: 1. Chronic obstructive pulmonary disease exacerbation. 2. Acute hypoxic hypercapnic respiratory failure requiring mechanical ventilation. PLAN: I will go ahead and stop vancomycin since no staphylococcus has grown out of his cultures. I will eliminate the paralytic from his MAR. We are trying to back off on sedation. He is getting Lasix daily, which I agree given the amount of edema that he has. I will go ahead and reduce steroid dose. Hopefully, we can begin to wean and extubate over the next couple of days. Job ID: [id number]
[2020-12-09] MEDS ORDERED: hydrALAZINE 20 MG/ML VIAL SLOW IVP SCH (15:00)
--- NOTE | 2020-12-09 18:33 | PDOC.HOSPP ---
- Subjective Encounter Date: 12/09/20 Encounter Time: 09:00 Subjective: Patient seen in follow-up for respiratory failure. Intubated, did not complete review of systems. - Objective Vital Signs & Weight: Vital Signs (12 hours) Temp Pulse Resp BP Pulse Ox 12/09/20 15:18 92 12/09/20 15:12 72 182/94 H 12/09/20 14:00 17 12/09/20 12:00 98.8 F 20 12/09/20 10:37 72 12/09/20 10:00 19 12/09/20 08:00 98.8 F 16 92 L 12/09/20 07:11 59 L Weight Admit Weight 218 lb Weight 3.781 oz Most Recent Monitor Data Heart Rate from ECG 77 NIBP 175/97 NIBP BP-Mean 123 Respiration from ECG 21 SpO2 90 I&O: 12/08/20 12/09/20 12/10/20 06:59 06:59 06:59 Intake Total 4533 4478 250 Output Total 6760 4350 2170 Balance 2002 128 -1920 Result Diagrams: 12/09/20 03:35 12/09/20 03:35 Additional Labs: I reviewed patient's labs and MAR Hospitalist ROS - Review of Systems ROS unobtainable: due to endotracheal tube - Medication Medications: Active Medications Generic Name Dose Route Start Last Admin Trade Name Freq PRN Reason Stop Dose Admin Acetaminophen 650 mg 12/04/20 20:50 12/07/20 00:42 Acetaminophen 325 Mg Tab PO 650 mg Q4H PRN Administration Headache/Fever/Mild Pain (1-3) Albuterol/Ipratropium 3 ml 12/05/20 13:00 12/09/20 15:17 Ipratropium/Albuterol Sulfate 3 Ml Neb NEB 3 ml [id number] RUBIA Administration Enoxaparin Sodium 40 mg 12/05/20 09:00 12/09/20 08:28 Enoxaparin Sodium 40 Mg/0.4 Ml Syringe SC 40 mg 0900 RUBIA Administration Furosemide 40 mg 12/09/20 09:00 12/09/20 08:29 Furosemide 40 Mg/4 Ml Vial SLOW IVP 40 mg DAILY RUBIA Administration Fentanyl 100 mls @ 0 mls/hr 12/04/20 21:45 12/08/20 11:52 Fentanyl Cadd IV 01/03/21 21:45 100 mls INF RUBIA Administration Protocol Per Protocol Azithromycin 500 mg/ Sodium 250 mls @ 250 mls/hr 12/04/20 22:30 12/08/20 21:54 Chloride IVPB 250 mls Q24HR RUBIA Administration Sodium Chloride 1,000 mls @ 100 mls/hr 12/04/20 23:45 12/09/20 10:46 Normal Saline 0.9% IV 1,000 mls .Q10H RUBIA Administration Piperacillin Sod/Tazobactam 100 mls @ 200 mls/hr 12/05/20 02:00 12/09/20 17:01 Sod 4.5 gm/ Sodium Chloride IVPB 100 mls 0200,1000,1800 RUBIA Administration Dexmedetomidine HCl 400 mcg/ 100 mls @ 0 mls/hr 12/08/20 16:30 12/09/20 17:41 Sodium Chloride IVPB 100 mls INF RUBIA Administration Protocol Per Protocol Lorazepam 2 mg 12/04/20 21:45 12/09/20 17:38 Lorazepam 2 Mg/Ml Vial SLOW IVP 01/03/21 21:45 2 mg Q1H PRN Administration Breakthrough agitation Methylprednisolone Sodium Succinate 20 mg 12/09/20 12:00 12/09/20 17:01 Methylprednisolone Sod Succ 40 Mg Vial IVP 20 mg Q6HR RUBIA Administration Morphine Sulfate 2 mg 12/04/20 21:45 12/09/20 01:11 Morphine 2 Mg/Ml Vial SLOW IVP 01/03/21 21:45 2 mg Q1H PRN Administration Breakthrough Pain/Agitation Nicotine 21 mg 12/06/20 09:00 12/09/20 08:29 Nicotine 21 Mg Patch TD 21 mg DAILY RUBIA Administration Pantoprazole Sodium 40 mg 12/06/20 09:00 12/09/20 08:30 Pantoprazole 40 Mg Vial IVP 40 mg DAILY RUBIA Administration Propofol 1,000 mg 12/04/20 21:45 12/08/20 08:06 Propofol 1,000 Mg/100 Ml Vial IV 01/03/21 21:45 1,000 mg INF PRN Administration TO ACHIEVE GOAL RASS Protocol Sterile Water 10 ml 12/04/20 22:04 12/05/20 04:43 Sterile Water 10 Ml Vial IVP 10 ml Q30MIN PRN Administration NEEDED FOR RECONSTITUTION Sterile Water 1 ml 12/04/20 22:15 12/06/20 17:33 Bacteriostatic Water 30 Ml Vial FS 1 ml PRN PRN Administration RECONSTITUTION - Exam General - other findings: Intubated Eye: anicteric sclera ENT: normocephalic atraumatic Heart: RRR Respiratory: CTAB Gastrointestinal: soft Neurological - other findings: Could not assess Psychiatric - other findings: Could not assess Hosp A/P - Plan Assessment/plan: Acute hypoxic respiratory failure Continue intubation and mechanical ventilation. Secondary to COPD exacerbation. Sepsis Continue Zosyn and azithromycin. Preliminary blood cultures are negative so far. COPD exacerbation Continue Solu-Medrol, duo nebs Continue Zosyn and azithromycin. Pneumonia Continue Zosyn and azithromycin. History of heart failure Stable NSTEMI Type II secondary to demand.
[2020-12-09] MEDS ORDERED: hydrALAZINE 20 MG/ML VIAL SLOW IVP PRN (18:42)
[2020-12-09] MEDS: Azithromycin 500 MG in Sodium Chloride 0.9% 250 ML 250 ML IVPB SCH (22:31)
[2020-12-10] MEDS: Piperacillin/Tazobactam 4.5 GM in Sodium Chloride 0.9% 100 ML IVPB SCH ×3 (01:06→17:02)
[2020-12-10] MEDS: Propofol 1,000 MG/100 ML VIAL IV PRN ×6 (01:24→23:09)
[2020-12-10] MEDS: Lorazepam 2 MG/ML VIAL SLOW IVP PRN ×8 (01:32→18:56)
[2020-12-10 03:13] LABS: Band 1 % (5-11); Hemoglobin 12.6 g/dL (14.0-18.0); Hypochromia SLIGHT = 6-15 cells (100X) (0-5/hpf); Lymphocytes 6 % (21-51); MDiff Complete? YES; Mean Corpuscular HGB CONC 32.3 g/dL (32.0-36.0); Mean Corpuscular Hemoglobin 29.7 pg (27.0-31.0); Mean Platelet Volume 7.9 fL (7.4-10.4); Monocytes 14 % (0-10); Neutrophil 79 % (42-75); Nucleated RBC 1 % (0); Platelet Count 280 thou/uL (130-400); Platelet Morphology Comment Appears Adequate; RBC Distribution Width 14.1 % (11.5-14.5); Red Blood Cell (RBC) Count 4.24 mill/uL (4.70-6.10); White Blood Cell (WBC) Count 16.3 thou/uL (4.8-10.8)
[2020-12-10 03:17] LABS: Anion Gap 11 mmol/L (10-20); BUN (Urea Nitrogen) 40 mg/dL (8.4-25.7); Calc. Creatinine Clearance 0 mL/min (70-130); Calcium 8.3 mg/dL (7.8-10.44); Carbon Dioxide 36 mmol/L (22-29); Chloride 102 mmol/L (98-107); Glucose 203 mg/dL (70-105); Potassium 3.8 mmol/L (3.5-5.1); Sodium 145 mmol/L (136-145)
[2020-12-10] MEDS: methylPREDNISolone Sod Succ 40 MG VIAL IVP SCH ×4 (05:02→23:10)
[2020-12-10 07:50] LABS: Actual Bicarbonate (HCO3a) 38.4 mEq/L (22-28); Base Excess (BEa) 10.3 mEq/L (-2.0 to +3.0); Calcium, Ionized (arterial) 1.18 mmol/L (1.12-1.30); Carboxyhemoglobin (COHb) 0.7 gm% (0.0-3.0); Hemoglobin (Hb) 13.1 g/dL (14.0-18.0); O2 Tension (PaO2), arterial 76.8 mmHg (80.0-100.0); Potassium - ABG Lab 3.71 mmol/L (3.70-5.30); pH, Arterial 7.36 (7.35-7.45)
[2020-12-10 07:53] LABS: CO2 Tension 69.2 mmHg (35.0-45.0); Puncture Site RRA
--- NOTE | 2020-12-10 08:00 | RAD ---
EXAM: Portable chest PROVIDED CLINICAL HISTORY: Respiratory insufficiency COMPARISON: 12/09/2020 FINDINGS: Significant interval change with respect to the prior examination is not apparent. IMPRESSION: As above.
[2020-12-10] MEDS: Enoxaparin Sodium 40 MG/0.4 ML SYRINGE SC SCH (08:31)
[2020-12-10] MEDS: Pantoprazole 40 MG VIAL IVP SCH (08:32)
[2020-12-10] MEDS: Furosemide 40 MG/4 ML VIAL SLOW IVP SCH (08:32)
[2020-12-10] MEDS: Nicotine 21 MG PATCH TD SCH (08:32)
[2020-12-10] MEDS ORDERED: Fentanyl CADD 100 ML ONE ×2 (08:47→22:38)
[2020-12-10] MEDS: Fentanyl CADD 100 ML IV SCH (08:56)
--- NOTE | 2020-12-10 09:09 | PRG ---
DATE OF SERVICE: 12/10/2020 TIME SPENT: This is 35 minutes of critical care time. SUBJECTIVE: The patient remains intubated on mechanical ventilation. He is currently sedated on propofol. He will follow some commands for me, but not reliably. PHYSICAL EXAMINATION: VITAL SIGNS: Temperature is 98.3, pulse 78, blood pressure 136/75, O2 saturation 94%. HEENT: Unremarkable. NECK: No adenopathy or JVD. LUNGS: He has diminished breath sounds in both bases. CARDIAC: S1 and S2. Regular. ABDOMEN: Soft and nontender. EXTREMITIES: No edema. IMAGING AND LABORATORY DATA: His chest x-ray shows bilateral effusions indicative of pulmonary edema. His sodium is 145, potassium 3.8, chloride 102, CO2 of 36, BUN 40, creatinine 0.7, glucose 203. White blood cell count of 16.3, hematocrit of 39, and platelet count of 280. PH of 7.36, pCO2 of 69, pO2 of 76 on SIMV rate of 10, tidal volume 470, PEEP 8, pressure support 10, and FiO2 of 50%. ASSESSMENT: 1. Chronic obstructive pulmonary disease exacerbation. 2. Acute hypoxic respiratory failure, requiring mechanical ventilation. PLAN: Based on the patient's elevated pCO2, I do not think he is ready to wean yet. I tried him on spontaneous breathing trial this morning, but he seemed very weak and started to desat in that mode. We will continue the steroids and breathing treatments. I have added some acetazolamide. Prognosis is guarded. Job ID: [id number]
[2020-12-10] MEDS: AcetaZOLAMIDE 250 MG TAB PO SCH ×2 (09:24→20:31)
--- NOTE | 2020-12-10 17:12 | PDOC.HOSPP ---
- Subjective Encounter Date: 12/10/20 Encounter Time: 13:10 Subjective: Patient seen for follow-up regarding respiratory failure. He is intubated, did not complete review of systems. - Objective Vital Signs & Weight: Vital Signs (12 hours) Temp Pulse Resp BP Pulse Ox 12/10/20 16:00 13 12/10/20 15:20 71 134/72 12/10/20 14:00 13 12/10/20 12:00 98.4 F 12 12/10/20 10:50 84 161/92 H 12/10/20 10:00 18 12/10/20 08:00 97.5 F L 16 12/10/20 07:45 79 133/71 12/10/20 07:32 95 12/10/20 06:00 18 Weight Admit Weight 218 lb Weight 3.774 oz Most Recent Monitor Data Heart Rate from ECG 80 NIBP 138/69 NIBP BP-Mean 92 Respiration from ECG 12 SpO2 91 I&O: 12/09/20 12/10/20 12/11/20 06:59 06:59 06:59 Intake Total 4478 2579 210 Output Total 4350 6010 2605 Balance 036 -5335 -5743 Result Diagrams: 12/10/20 02:41 12/10/20 02:41 Additional Labs: Labs and MAR reviewed by me Hospitalist ROS - Review of Systems ROS unobtainable: due to endotracheal tube - Medication Medications: Active Medications Generic Name Dose Route Start Last Admin Trade Name Freq PRN Reason Stop Dose Admin Acetaminophen 650 mg 12/04/20 20:50 12/07/20 00:42 Acetaminophen 325 Mg Tab PO 650 mg Q4H PRN Administration Headache/Fever/Mild Pain (1-3) Acetazolamide 250 mg 12/10/20 09:00 12/10/20 09:24 Acetazolamide 250 Mg Tab PO 250 mg BID RUBIA Administration Albuterol/Ipratropium 3 ml 12/10/20 10:30 12/10/20 14:42 Ipratropium/Albuterol Sulfate 3 Ml Neb NEB 3 ml [id number] RUBIA Administration Enoxaparin Sodium 40 mg 12/05/20 09:00 12/10/20 08:31 Enoxaparin Sodium 40 Mg/0.4 Ml Syringe SC 40 mg 0900 RUBIA Administration Fentanyl 100 mls @ 0 mls/hr 12/04/20 21:45 12/10/20 08:56 Fentanyl Cadd IV 01/03/21 21:45 100 mls INF RUBIA Administration Protocol Per Protocol Azithromycin 500 mg/ Sodium 250 mls @ 250 mls/hr 12/04/20 22:30 12/09/20 22:31 Chloride IVPB 250 mls Q24HR RUBIA Administration Piperacillin Sod/Tazobactam 100 mls @ 200 mls/hr 12/05/20 02:00 12/10/20 17:02 Sod 4.5 gm/ Sodium Chloride IVPB 100 mls 0200,1000,1800 RUBIA Administration Dexmedetomidine HCl 400 mcg/ 100 mls @ 0 mls/hr 12/08/20 16:30 12/09/20 23:20 Sodium Chloride IVPB 100 mls INF RUBIA Administration Protocol Per Protocol Lorazepam 2 mg 12/04/20 21:45 12/10/20 16:52 Lorazepam 2 Mg/Ml Vial SLOW IVP 01/03/21 21:45 2 mg Q1H PRN Administration Breakthrough agitation Methylprednisolone Sodium Succinate 20 mg 12/09/20 12:00 12/10/20 17:03 Methylprednisolone Sod Succ 40 Mg Vial IVP 20 mg Q6HR RUBIA Administration Morphine Sulfate 2 mg 12/04/20 21:45 12/09/20 01:11 Morphine 2 Mg/Ml Vial SLOW IVP 01/03/21 21:45 2 mg Q1H PRN Administration Breakthrough Pain/Agitation Nicotine 21 mg 12/06/20 09:00 12/10/20 08:32 Nicotine 21 Mg Patch TD 21 mg DAILY RUBIA Administration Pantoprazole Sodium 40 mg 12/06/20 09:00 12/10/20 08:32 Pantoprazole 40 Mg Vial IVP 40 mg DAILY RUBIA Administration Propofol 1,000 mg 12/04/20 21:45 12/10/20 14:33 Propofol 1,000 Mg/100 Ml Vial IV 01/03/21 21:45 1,000 mg INF PRN Administration TO ACHIEVE GOAL RASS Protocol Sterile Water 10 ml 12/04/20 22:04 12/05/20 04:43 Sterile Water 10 Ml Vial IVP 10 ml Q30MIN PRN Administration NEEDED FOR RECONSTITUTION Sterile Water 1 ml 12/04/20 22:15 12/06/20 17:33 Bacteriostatic Water 30 Ml Vial FS 1 ml PRN PRN Administration RECONSTITUTION Hospitalist Exam Vitals: Vital Signs (12 hours) Temp Pulse Resp BP Pulse Ox 12/10/20 16:00 13 12/10/20 15:20 71 134/72 12/10/20 14:00 13 12/10/20 12:00 98.4 F 12 12/10/20 10:50 84 161/92 H 12/10/20 10:00 18 12/10/20 08:00 97.5 F L 16 12/10/20 07:45 79 133/71 12/10/20 07:32 95 12/10/20 06:00 18 Weight Admit Weight 218 lb Weight 3.774 oz Most Recent Monitor Data Heart Rate from ECG 80 NIBP 138/69 NIBP BP-Mean 92 Respiration from ECG 12 SpO2 91 Neck - other findings: ETT Heart: RRR Gastrointestinal: soft, non-tender Skin: no rashes Psychiatric - other findings: Unable to assess Hosp A/P - Plan Assessment/plan: Acute hypoxic respiratory failure Patient continues to be intubated and on mechanical ventilation. Secondary to COPD exacerbation. Sepsis Patient is on Zosyn and azithromycin. No growth in final blood culture COPD exacerbation Patient is on Solu-Medrol, duo nebs Continue Zosyn and azithromycin. Pneumonia Continue Zosyn and azithromycin. History of heart failure Stable NSTEMI Type II secondary to demand.
[2020-12-10] MEDS: Azithromycin 500 MG in Sodium Chloride 0.9% 250 ML 250 ML IVPB SCH (21:59)
[2020-12-11] MEDS: Piperacillin/Tazobactam 4.5 GM in Sodium Chloride 0.9% 100 ML IVPB SCH ×3 (01:14→17:25)
[2020-12-11 03:04] LABS: #Eosinphils 0.1 thou/uL (0.0-0.7); #Lymphocytes 0.5 thou/uL (1.20-3.40); #Monocytes 0.9 thou/uL (0.11-0.59); #Neutrophils 15.5 thou/uL (1.40-6.50); %Basophils 0.1 % (0.0-1.0); %Eosinophils 0.4 % (0.0-10.0); %Lymphocytes 2.8 % (21.0-51.0); %Monocytes 5.3 % (0.0-10.0); %Neutrophils 91.5 % (42.0-75.0); Hemoglobin 12.6 g/dL (14.0-18.0); Mean Corpuscular HGB CONC 32.2 g/dL (32.0-36.0); Mean Corpuscular Hemoglobin 30.1 pg (27.0-31.0); Mean Corpuscular Volume 93.6 fL (78.0-98.0); Mean Platelet Volume 8.1 fL (7.4-10.4); Platelet Count 264 thou/uL (130-400); RBC Distribution Width 14.3 % (11.5-14.5)
[2020-12-11 03:28] LABS: Anion Gap 10 mmol/L (10-20); BUN (Urea Nitrogen) 37 mg/dL (8.4-25.7); Calc. Creatinine Clearance 0 mL/min (70-130); Calcium 8.5 mg/dL (7.8-10.44); Carbon Dioxide 36 mmol/L (22-29); Chloride 104 mmol/L (98-107); Glucose 183 mg/dL (70-105); Potassium 4.5 mmol/L (3.5-5.1); Sodium 145 mmol/L (136-145)
[2020-12-11] MEDS: Propofol 1,000 MG/100 ML VIAL IV PRN ×2 (04:21→09:11)
[2020-12-11] MEDS: methylPREDNISolone Sod Succ 40 MG VIAL IVP SCH ×4 (05:04→23:57)
[2020-12-11] MEDS: Nicotine 21 MG PATCH TD SCH (08:21)
[2020-12-11] MEDS: Pantoprazole 40 MG VIAL IVP SCH (08:21)
[2020-12-11] MEDS: Enoxaparin Sodium 40 MG/0.4 ML SYRINGE SC SCH (08:21)
[2020-12-11 08:22] LABS: Calcium, Ionized (arterial) 1.24 mmol/L (1.12-1.30); Hemoglobin (Hb) 13.4 g/dL (14.0-18.0); O2 Tension (PaO2), arterial 68.5 mmHg (80.0-100.0); Potassium - ABG Lab 4.31 mmol/L (3.70-5.30)
[2020-12-11 08:23] LABS: CO2 Tension 81.5 mmHg (35.0-45.0); Puncture Site RRA; pH, Arterial 7.25 (7.35-7.45)
[2020-12-11 08:24] LABS: ALV-art Gradient 114.825 mmHg (0-20)
[2020-12-11] MEDS: Ziprasidone 20 MG VIAL IM SCH ×2 (08:45→20:09)
[2020-12-11] MEDS: AcetaZOLAMIDE 250 MG TAB PO SCH ×2 (08:46→20:09)
[2020-12-11] MEDS: Divalproex Sodium 125 mg Sprinkle Capsule PER TUBE SCH ×2 (08:59→20:09)
--- NOTE | 2020-12-11 09:06 | RAD ---
CHEST 1 VIEW: INDICATION: History of pneumonia. COMPARISON: Prior exam dated 12/10/2020. IMPRESSION: The patient is intubated with gastric catheter placement. Bibasilar pleural parenchymal opacities pe rsist. No pneumothorax is evident. POS: BH
--- NOTE | 2020-12-11 09:12 | PRG ---
DATE OF SERVICE: 12/11/2020 30 minutes of critical care time. SUBJECTIVE: The patient remains intubated on mechanical ventilation. I tried a spontaneous breathing trial this morning, but he became agitated within 5 minutes, biting the tube, and I could not successfully make any progress. OBJECTIVE: VITAL SIGNS: His temperature is 98.4, pulse 78, blood pressure 146/103, O2 saturation running in the high 80s to low 90s. Intake for 24 hours 2487, output 4635. HEENT: Unremarkable. NECK: No JVD. LUNGS: Fairly clear anteriorly. CARDIAC: S1 and S2. Regular. ABDOMEN: Soft. EXTREMITIES: Slight edema. LABORATORY DATA: Sodium 145, potassium 4.5, chloride 104, CO2 of 36, BUN 37, creatinine 0.7, glucose 183. White blood cell count 17, hematocrit 39.3, and platelet count 264. ABG is pending. Chest x-ray shows small effusions bilaterally. ASSESSMENT: 1. Acute hypoxic and hypercapnic respiratory failure, requiring mechanical ventilation. 2. Obesity. 3. Metabolic alkalosis/respiratory acidosis. PLAN: I will add some Mckay and Micky to see if this will lighten his mood somewhat. I am hoping with this, we will be able to wean his sedation and hopefully extubate him in the next 2 to 3 days. If it is not making progress by that time, then we will have to consider tracheostomy placement. Job ID: [id number]
[2020-12-11] MEDS ORDERED: Fentanyl CADD 100 ML ONE (16:55)
[2020-12-11] MEDS ORDERED: Bisacodyl 10 MG SUPP PR SCH (18:15)
--- NOTE | 2020-12-11 18:20 | PDOC.HOSPP ---
- Subjective Encounter Date: 12/11/20 Encounter Time: 12:30 Subjective: Patient seen in follow-up, hypoxic respiratory failure. - Objective Vital Signs & Weight: Vital Signs (12 hours) Temp Pulse Resp BP 12/11/20 15:14 75 12/11/20 12:00 98.7 F 12/11/20 11:05 70 166/86 H 12/11/20 10:00 18 12/11/20 08:00 98.1 F 18 12/11/20 07:19 66 143/73 H Weight Admit Weight 218 lb Weight 231 lb 14.821 oz Most Recent Monitor Data Heart Rate from ECG 86 NIBP 189/71 NIBP BP-Mean 110 Respiration from ECG 25 SpO2 89 I&O: 12/10/20 12/11/20 12/12/20 06:59 06:59 06:59 Intake Total 2579 2487 520 Output Total 0476 3259 1595 [facility] -1031 -2148 -1075 Result Diagrams: 12/11/20 02:45 12/11/20 02:45 Additional Labs: I reviewed patient's labs and MAR Hospitalist ROS - Review of Systems ROS unobtainable: due to endotracheal tube - Medication Medications: Active Medications Generic Name Dose Route Start Last Admin Trade Name Freq PRN Reason Stop Dose Admin Acetaminophen 650 mg 12/04/20 20:50 12/07/20 00:42 Acetaminophen 325 Mg Tab PO 650 mg Q4H PRN Administration Headache/Fever/Mild Pain (1-3) Acetazolamide 250 mg 12/10/20 09:00 12/11/20 08:46 Acetazolamide 250 Mg Tab PO 250 mg BID RUBIA Administration Albuterol/Ipratropium 3 ml 12/10/20 10:30 12/11/20 14:20 Ipratropium/Albuterol Sulfate 3 Ml Neb NEB 3 ml [id number] RUBIA Administration Divalproex Sodium 250 mg 12/11/20 09:00 12/11/20 08:59 Divalproex Sodium 125 Mg Sprinkle Capsule PER TUBE 250 mg BID RUBIA Administration Enoxaparin Sodium 40 mg 12/05/20 09:00 12/11/20 08:21 Enoxaparin Sodium 40 Mg/0.4 Ml Syringe SC 40 mg 0900 RUBIA Administration Fentanyl 100 mls @ 0 mls/hr 12/04/20 21:45 12/10/20 08:56 Fentanyl Cadd IV 01/03/21 21:45 100 mls INF RUBIA Administration Protocol Per Protocol Piperacillin Sod/Tazobactam 100 mls @ 200 mls/hr 12/05/20 02:00 12/11/20 17:25 Sod 4.5 gm/ Sodium Chloride IVPB 100 mls 0200,1000,1800 RUBIA Administration Dexmedetomidine HCl 400 mcg/ 100 mls @ 0 mls/hr 12/08/20 16:30 12/09/20 23:20 Sodium Chloride IVPB 100 mls INF RUBIA Administration Protocol Per Protocol Lorazepam 2 mg 12/04/20 21:45 12/10/20 18:56 Lorazepam 2 Mg/Ml Vial SLOW IVP 01/03/21 21:45 2 mg Q1H PRN Administration Breakthrough agitation Methylprednisolone Sodium Succinate 20 mg 12/09/20 12:00 12/11/20 17:25 Methylprednisolone Sod Succ 40 Mg Vial IVP 20 mg Q6HR RUBIA Administration Morphine Sulfate 2 mg 12/04/20 21:45 12/09/20 01:11 Morphine 2 Mg/Ml Vial SLOW IVP 01/03/21 21:45 2 mg Q1H PRN Administration Breakthrough Pain/Agitation Nicotine 21 mg 12/06/20 09:00 12/11/20 08:21 Nicotine 21 Mg Patch TD 21 mg DAILY RUBIA Administration Propofol 1,000 mg 12/04/20 21:45 12/11/20 09:11 Propofol 1,000 Mg/100 Ml Vial IV 01/03/21 21:45 1,000 mg INF PRN Administration TO ACHIEVE GOAL RASS Protocol Propofol 20 mg 12/04/20 21:45 12/11/20 04:00 Propofol Bolus 1,000 Mg/100 Ml Vial IV 01/03/21 21:45 20 mg Q5MIN PRN Administration BREAKTHROUGH AGITATION Sodium Chloride 10 ml 12/11/20 09:00 12/11/20 12:53 Flush - Normal Saline 10 Ml Syringe IVF 10 ml Q12HR RUBIA Administration Sterile Water 10 ml 12/04/20 22:04 12/05/20 04:43 Sterile Water 10 Ml Vial IVP 10 ml Q30MIN PRN Administration NEEDED FOR RECONSTITUTION Sterile Water 1 ml 12/04/20 22:15 12/06/20 17:33 Bacteriostatic Water 30 Ml Vial FS 1 ml PRN PRN Administration RECONSTITUTION Ziprasidone 20 mg 12/11/20 09:00 12/11/20 08:45 Ziprasidone 20 Mg Vial IM 20 mg BID RUBIA Administration Hospitalist Exam Vitals: Vital Signs (12 hours) Temp Pulse Resp BP 12/11/20 15:14 75 12/11/20 12:00 98.7 F 12/11/20 11:05 70 166/86 H 12/11/20 10:00 18 12/11/20 08:00 98.1 F 18 12/11/20 07:19 66 143/73 H Weight Admit Weight 218 lb Weight 231 lb 14.821 oz Most Recent Monitor Data Heart Rate from ECG 86 NIBP 189/71 NIBP BP-Mean 110 Respiration from ECG 25 SpO2 89 General - other findings: Intubated ENT: normocephalic atraumatic Neck: no thyromegaly Heart: RRR Respiratory: CTAB Gastrointestinal: soft Skin: no rashes Psychiatric - other findings: Unable to assess Hosp A/P - Plan Assessment/plan: Acute hypoxic respiratory failure Patient currently intubated Secondary to COPD exacerbation. PCCM following Sepsis Patient is on Zosyn and azithromycin. COPD exacerbation Continue Solu-Medrol, duo nebs Continue Zosyn and azithromycin. Pneumonia Continue Zosyn and azithromycin. History of heart failure Stable NSTEMI Type II secondary to demand.
[2020-12-12] MEDS: Piperacillin/Tazobactam 4.5 GM in Sodium Chloride 0.9% 100 ML IVPB SCH ×3 (01:43→17:50)
[2020-12-12 04:25] LABS: #Eosinphils 0.1 thou/uL (0.0-0.7); #Lymphocytes 0.5 thou/uL (1.20-3.40); #Monocytes 0.9 thou/uL (0.11-0.59); #Neutrophils 16.4 thou/uL (1.40-6.50); %Basophils 0.1 % (0.0-1.0); %Eosinophils 0.4 % (0.0-10.0); %Monocytes 4.9 % (0.0-10.0); %Neutrophils 91.6 % (42.0-75.0); Mean Corpuscular HGB CONC 30.8 g/dL (32.0-36.0); Mean Corpuscular Hemoglobin 28.9 pg (27.0-31.0); Mean Corpuscular Volume 93.9 fL (78.0-98.0); Mean Platelet Volume 8.3 fL (7.4-10.4); Platelet Count 232 thou/uL (130-400); RBC Distribution Width 14.6 % (11.5-14.5); Red Blood Cell (RBC) Count 4.51 mill/uL (4.70-6.10); White Blood Cell (WBC) Count 17.9 thou/uL (4.8-10.8)
[2020-12-12 04:51] LABS: Anion Gap 10 mmol/L (10-20); BUN (Urea Nitrogen) 40 mg/dL (8.4-25.7); Calc. Creatinine Clearance 161 mL/min (70-130); Calcium 8.5 mg/dL (7.8-10.44); Carbon Dioxide 33 mmol/L (22-29); Chloride 107 mmol/L (98-107); Glucose 159 mg/dL (70-105); Potassium 4.3 mmol/L (3.5-5.1); Sodium 146 mmol/L (136-145)
[2020-12-12] MEDS: methylPREDNISolone Sod Succ 40 MG VIAL IVP SCH ×4 (05:12→23:23)
[2020-12-12] MEDS: Lorazepam 2 MG/ML VIAL SLOW IVP PRN ×3 (05:51→23:22)
[2020-12-12 07:32] LABS: Actual Bicarbonate (HCO3a) 29.7 mEq/L (22-28); Base Excess (BEa) 2.8 mEq/L (-2.0 to +3.0); CO2 Tension 55.5 mmHg (35.0-45.0); Calcium, Ionized (arterial) 1.22 mmol/L (1.12-1.30); Hemoglobin (Hb) 13.3 g/dL (14.0-18.0); O2 Tension (PaO2), arterial 72.9 mmHg (80.0-100.0); Potassium - ABG Lab 4.34 mmol/L (3.70-5.30); pH, Arterial 7.35 (7.35-7.45)
[2020-12-12 07:35] LABS: ALV-art Gradient 142.925 mmHg (0-20); Puncture Site RRA
--- NOTE | 2020-12-12 08:14 | RAD ---
Exam: Chest one view HISTORY:Pneumonia. Comparison: 12/09/2020, 12/10/2020 and 12/11/2020 FINDINGS: Lines and tubes: Endotracheal tube extends beyond the clavicles. Nasogastric tube extends beyond the diaphragm. Distal tip is not seen Cardiac silhouette: Normal Aorta: Unremarkable Pulmonary vessels: Slightly prominent Costophrenic angles: Small bilateral effusions LUNGS: Stable interstitial opacities. Pneumothorax: None Osseous abnormalities: None IMPRESSION: No significant interval change
[2020-12-12] MEDS: AcetaZOLAMIDE 250 MG TAB PO SCH ×2 (08:59→21:16)
[2020-12-12] MEDS: Pantoprazole 40 MG GRANULES PACKET PO SCH (09:01)
[2020-12-12] MEDS: Ziprasidone 20 MG VIAL IM SCH ×2 (09:01→20:57)
[2020-12-12] MEDS: Enoxaparin Sodium 40 MG/0.4 ML SYRINGE SC SCH (09:02)
[2020-12-12] MEDS: Nicotine 21 MG PATCH TD SCH (09:02)
[2020-12-12] MEDS: Divalproex Sodium 125 mg Sprinkle Capsule PER TUBE SCH ×2 (09:02→20:57)
[2020-12-12] MEDS ORDERED: Sterile Water 10 ML ONE (09:21)
--- NOTE | 2020-12-12 16:47 | PDOC.HOSPP ---
- Subjective Encounter Date: 12/12/20 Encounter Time: 11:30 Subjective: Seen in follow-up for respiratory failure. He is intubated. - Objective Vital Signs & Weight: Vital Signs (12 hours) Temp Pulse Resp BP Pulse Ox 12/12/20 16:00 99.3 F 18 12/12/20 14:24 94 143/68 H 12/12/20 14:00 18 12/12/20 12:00 98.9 F 18 12/12/20 10:38 75 108/58 L 12/12/20 10:00 20 12/12/20 08:00 98.9 F 18 91 L 12/12/20 07:22 77 108/62 12/12/20 06:00 19 Weight Admit Weight 218 lb Weight 224 lb 10.417 oz Most Recent Monitor Data Heart Rate from ECG 106 NIBP 124/60 NIBP BP-Mean 81 Respiration from ECG 24 SpO2 89 I&O: 12/11/20 12/12/20 12/13/20 06:59 06:59 06:59 Intake Total 2487 1297.4 360 Output Total 4635 3860 1635 Balance -2148 -2562.6 -1275 Result Diagrams: 12/12/20 03:45 12/12/20 03:45 Additional Labs: Accuchecks 12/11/20 21:57 POC Glucose 185 H Labs and MAR reviewed by or Hospitalist ROS - Review of Systems ROS unobtainable: due to endotracheal tube - Medication Medications: Active Medications Generic Name Dose Route Start Last Admin Trade Name Freq PRN Reason Stop Dose Admin Acetaminophen 650 mg 12/04/20 20:50 12/07/20 00:42 Acetaminophen 325 Mg Tab PO 650 mg Q4H PRN Administration Headache/Fever/Mild Pain (1-3) Acetazolamide 250 mg 12/10/20 09:00 12/12/20 08:59 Acetazolamide 250 Mg Tab PO 250 mg BID RUBIA Administration Albuterol/Ipratropium 3 ml 12/10/20 10:30 12/12/20 14:24 Ipratropium/Albuterol Sulfate 3 Ml Neb NEB 3 ml [id number] RUBIA Administration Divalproex Sodium 250 mg 12/11/20 09:00 12/12/20 09:02 Divalproex Sodium 125 Mg Sprinkle Capsule PER TUBE 250 mg BID RUBIA Administration Enoxaparin Sodium 40 mg 12/05/20 09:00 12/12/20 09:02 Enoxaparin Sodium 40 Mg/0.4 Ml Syringe SC 40 mg 0900 RUBIA Administration Fentanyl 100 mls @ 0 mls/hr 12/04/20 21:45 12/10/20 08:56 Fentanyl Cadd IV 01/03/21 21:45 100 mls INF RUBIA Administration Protocol Per Protocol Piperacillin Sod/Tazobactam 100 mls @ 200 mls/hr 12/05/20 02:00 12/12/20 08:59 Sod 4.5 gm/ Sodium Chloride IVPB 100 mls 0200,1000,1800 RUBIA Administration Dexmedetomidine HCl 400 mcg/ 100 mls @ 0 mls/hr 12/08/20 16:30 12/09/20 23:20 Sodium Chloride IVPB 100 mls INF RUBIA Administration Protocol Per Protocol Lorazepam 2 mg 12/04/20 21:45 12/12/20 15:23 Lorazepam 2 Mg/Ml Vial SLOW IVP 01/03/21 21:45 2 mg Q1H PRN Administration Breakthrough agitation Methylprednisolone Sodium Succinate 20 mg 12/09/20 12:00 12/12/20 12:04 Methylprednisolone Sod Succ 40 Mg Vial IVP 20 mg Q6HR RUBIA Administration Morphine Sulfate 2 mg 12/04/20 21:45 12/09/20 01:11 Morphine 2 Mg/Ml Vial SLOW IVP 01/03/21 21:45 2 mg Q1H PRN Administration Breakthrough Pain/Agitation Nicotine 21 mg 12/06/20 09:00 12/12/20 09:02 Nicotine 21 Mg Patch TD 21 mg DAILY RUBIA Administration Pantoprazole Sodium 40 mg 12/12/20 09:00 12/12/20 09:01 Pantoprazole 40 Mg Granules Packet PO 40 mg DAILY RUBIA Administration Propofol 1,000 mg 12/04/20 21:45 12/11/20 09:11 Propofol 1,000 Mg/100 Ml Vial IV 01/03/21 21:45 1,000 mg INF PRN Administration TO ACHIEVE GOAL RASS Protocol Propofol 20 mg 12/04/20 21:45 12/11/20 04:00 Propofol Bolus 1,000 Mg/100 Ml Vial IV 01/03/21 21:45 20 mg Q5MIN PRN Administration BREAKTHROUGH AGITATION Sodium Chloride 10 ml 12/11/20 09:00 12/12/20 09:01 Flush - Normal Saline 10 Ml Syringe IVF 10 ml Q12HR RUBIA Administration Sterile Water 10 ml 12/04/20 22:04 12/05/20 04:43 Sterile Water 10 Ml Vial IVP 10 ml Q30MIN PRN Administration NEEDED FOR RECONSTITUTION Sterile Water 1 ml 12/04/20 22:15 12/06/20 17:33 Bacteriostatic Water 30 Ml Vial FS 1 ml PRN PRN Administration RECONSTITUTION Ziprasidone 20 mg 12/11/20 09:00 12/12/20 09:01 Ziprasidone 20 Mg Vial IM 20 mg BID RUBIA Administration Hospitalist Exam Vitals: Vital Signs (12 hours) Temp Pulse Resp BP Pulse Ox 12/12/20 16:00 99.3 F 18 12/12/20 14:24 94 143/68 H 12/12/20 14:00 18 12/12/20 12:00 98.9 F 18 12/12/20 10:38 75 108/58 L 12/12/20 10:00 20 12/12/20 08:00 98.9 F 18 91 L 12/12/20 07:22 77 108/62 12/12/20 06:00 19 Weight Admit Weight 218 lb Weight 224 lb 10.417 oz Most Recent Monitor Data Heart Rate from ECG 106 NIBP 124/60 NIBP BP-Mean 81 Respiration from ECG 24 SpO2 89 General - other findings: Intubated ENT: normocephalic atraumatic, moist mucosa Heart: RRR Respiratory: CTAB Gastrointestinal: soft Skin: no rashes Psychiatric - other findings: Unable to assess Hosp A/P - Plan Assessment/plan: Acute hypoxic respiratory failure Due to COPD exacerbation, patient is intubated and mechanically ventilated. Sepsis Continue Zosyn and azithromycin. COPD exacerbation Patient is on Solu-Medrol, duo nebs Pneumonia Patient is on Zosyn and azithromycin. History of heart failure Stable NSTEMI Type II secondary to demand.
--- NOTE | 2020-12-12 21:59 | PRG ---
DATE OF SERVICE: 12/12/2020 SUBJECTIVE: Rigo Mathur is afebrile. OBJECTIVE: VITAL SIGNS: Respiratory rate is 23, oximetry is 92, blood pressure 146/92, FiO2 is 40%. Intake and outputs, -2497. LUNGS: Remarkable for distant clear breath sounds. HEART: Regular rhythm. ABDOMEN: Soft. EXTREMITIES: Without edema. LABORATORY DATA: White count 17.9, hemoglobin 13, and platelets 232. Sodium 146, potassium 4.3, chloride 107, bicarb 33, BUN 40, creatinine 0.76, and glucose 159. Chest x-ray still shows diffuse infiltrates. IMPRESSION: COVID pneumonia with respiratory failure . We will continue supportive care. Job ID: [id number]
[2020-12-13] MEDS: Piperacillin/Tazobactam 4.5 GM in Sodium Chloride 0.9% 100 ML IVPB SCH ×3 (01:46→17:16)
[2020-12-13 04:53] LABS: #Lymphocytes 0.6 thou/uL (1.20-3.40); #Monocytes 0.6 thou/uL (0.11-0.59); #Neutrophils 12.1 thou/uL (1.40-6.50); %Eosinophils 0.3 % (0.0-10.0); %Lymphocytes 4.7 % (21.0-51.0); %Monocytes 4.4 % (0.0-10.0); %Neutrophils 90.6 % (42.0-75.0); Hemoglobin 12.1 g/dL (14.0-18.0); Mean Corpuscular HGB CONC 31.4 g/dL (32.0-36.0); Mean Corpuscular Hemoglobin 29.1 pg (27.0-31.0); Mean Corpuscular Volume 92.6 fL (78.0-98.0); Platelet Count 193 thou/uL (130-400); RBC Distribution Width 14.7 % (11.5-14.5); Red Blood Cell (RBC) Count 4.14 mill/uL (4.70-6.10); White Blood Cell (WBC) Count 13.3 thou/uL (4.8-10.8)
[2020-12-13 05:48] LABS: Anion Gap 12 mmol/L (10-20); BUN (Urea Nitrogen) 36 mg/dL (8.4-25.7); Calc. Creatinine Clearance 152 mL/min (70-130); Calcium 8.2 mg/dL (7.8-10.44); Carbon Dioxide 27 mmol/L (22-29); Chloride 111 mmol/L (98-107); Glucose 159 mg/dL (70-105); Potassium 4.2 mmol/L (3.5-5.1); Sodium 146 mmol/L (136-145)
[2020-12-13] MEDS: methylPREDNISolone Sod Succ 40 MG VIAL IVP SCH ×4 (05:48→23:17)
[2020-12-13 07:26] LABS: Actual Bicarbonate (HCO3a) 27.2 mEq/L (22-28); Base Excess (BEa) 0.3 mEq/L (-2.0 to +3.0); CO2 Tension 53.4 mmHg (35.0-45.0); Carboxyhemoglobin (COHb) 0.8 gm% (0.0-3.0); Hemoglobin (Hb) 13.6 g/dL (14.0-18.0); O2 Tension (PaO2), arterial 72.8 mmHg (80.0-100.0); Potassium - ABG Lab 4.09 mmol/L (3.70-5.30); pH, Arterial 7.33 (7.35-7.45)
[2020-12-13 07:27] LABS: Puncture Site RRA
--- NOTE | 2020-12-13 08:23 | RAD ---
EXAM: Portable chest PROVIDED CLINICAL HISTORY: Respiratory insufficiency COMPARISON: 12/12/2020 FINDINGS: Significant interval change with respect to the prior examination is not apparent. IMPRESSION: As above.
[2020-12-13] MEDS: Pantoprazole 40 MG GRANULES PACKET PO SCH (08:26)
[2020-12-13] MEDS: Ziprasidone 20 MG VIAL IM SCH ×2 (08:26→20:24)
[2020-12-13] MEDS: Lorazepam 2 MG/ML VIAL SLOW IVP PRN ×2 (08:26→12:19)
[2020-12-13] MEDS: Enoxaparin Sodium 40 MG/0.4 ML SYRINGE SC SCH (08:26)
[2020-12-13] MEDS: Nicotine 21 MG PATCH TD SCH (08:37)
[2020-12-13] MEDS: AcetaZOLAMIDE 250 MG TAB PO SCH ×2 (08:37→20:23)
[2020-12-13] MEDS: Divalproex Sodium 125 mg Sprinkle Capsule PER TUBE SCH ×2 (08:37→20:23)
--- NOTE | 2020-12-13 11:32 | PRG ---
DATE OF SERVICE: 12/13/2020 This is 30 minutes of critical care time. SUBJECTIVE: The patient remains intubated, on mechanical ventilation. He has been weaned off all the sedation except for the Depakote, Geodon, and some p.r.n. Ativan very calm. He does not wake up to commands, but he does move his extremities. OBJECTIVE: VITAL SIGNS: Temperature 99, pulse 94, blood pressure 141/76, O2 saturation 92%. He is currently on mechanical ventilation on SIMV rate 18, tidal volume 470, PEEP 5, pressure support 10, FiO2 of 40%. He has very low spontaneous tidal volumes. HEENT: Unremarkable. NECK: No JVD. LUNGS: Poor air movement. CARDIAC: S1 and S2. Regular. ABDOMEN: Soft. EXTREMITIES: Trace edema. LABORATORY DATA: ABG; pH 7.33, pCO2 of 53, pO2 of 72. White blood cell count 13, hematocrit 38.4, and platelet count 193. Sodium 146, potassium 4.2, chloride 111, CO2 of 27, BUN 36, creatinine 0.7, glucose 159. ASSESSMENT: 1. Acute hypoxic respiratory failure requiring mechanical ventilation. 2. Obesity. 3. Improved metabolic alkalosis, on Diamox. PLAN: I am hoping he will wake up to the point where we can have a trial of extubation. My fear is, however, he will need tracheostomy placement. At the current time, he is not weanable. We will continue to follow. Job ID: [id number]
--- NOTE | 2020-12-13 16:57 | PDOC.HOSPP ---
- Subjective Encounter Date: 12/13/20 Encounter Time: 10:30 Subjective: Pt seen for followup re: resp failure. Intubated, did not complete ROS. - Objective Vital Signs & Weight: Vital Signs (12 hours) Temp Pulse Resp BP Pulse Ox 12/13/20 16:00 99.7 F H 22 H 12/13/20 15:05 98 175/89 H 12/13/20 14:00 22 H 12/13/20 12:00 28 H 12/13/20 10:53 92 12/13/20 10:00 24 H 12/13/20 08:00 99.5 F 22 H 93 L 12/13/20 07:12 102 H 141/76 H 12/13/20 06:00 24 H Weight Admit Weight 218 lb Weight 217 lb 13.067 oz Most Recent Monitor Data Heart Rate from ECG 109 NIBP 175/89 NIBP BP-Mean 117 Respiration from ECG 31 SpO2 91 I&O: 12/12/20 12/13/20 12/14/20 06:59 06:59 06:59 Intake Total 1362.4 1298 310 Output Total 3860 4185 1555 Balance -2497.6 -2887 -1245 Result Diagrams: 12/13/20 03:50 12/13/20 03:50 Additional Labs: Labs and MARs reviewed by ar Hospitalist ROS - Review of Systems ROS unobtainable: due to endotracheal tube - Medication Medications: Active Medications Generic Name Dose Route Start Last Admin Trade Name Freq PRN Reason Stop Dose Admin Acetaminophen 650 mg 12/04/20 20:50 12/07/20 00:42 Acetaminophen 325 Mg Tab PO 650 mg Q4H PRN Administration Headache/Fever/Mild Pain (1-3) Acetazolamide 250 mg 12/10/20 09:00 12/13/20 08:37 Acetazolamide 250 Mg Tab PO 250 mg BID RUBIA Administration Albuterol/Ipratropium 3 ml 12/10/20 10:30 12/13/20 15:05 Ipratropium/Albuterol Sulfate 3 Ml Neb NEB 3 ml [id number] RUBIA Administration Divalproex Sodium 250 mg 12/11/20 09:00 12/13/20 08:37 Divalproex Sodium 125 Mg Sprinkle Capsule PER TUBE 250 mg BID RUBIA Administration Enoxaparin Sodium 40 mg 12/05/20 09:00 12/13/20 08:26 Enoxaparin Sodium 40 Mg/0.4 Ml Syringe SC 40 mg 0900 RUBIA Administration Fentanyl 100 mls @ 0 mls/hr 12/04/20 21:45 12/10/20 08:56 Fentanyl Cadd IV 01/03/21 21:45 100 mls INF RUBIA Administration Protocol Per Protocol Piperacillin Sod/Tazobactam 100 mls @ 200 mls/hr 12/05/20 02:00 12/13/20 09:01 Sod 4.5 gm/ Sodium Chloride IVPB 100 mls 0200,1000,1800 RUBIA Administration Dexmedetomidine HCl 400 mcg/ 100 mls @ 0 mls/hr 12/08/20 16:30 12/09/20 23:20 Sodium Chloride IVPB 100 mls INF RUBIA Administration Protocol Per Protocol Lorazepam 2 mg 12/04/20 21:45 12/13/20 12:19 Lorazepam 2 Mg/Ml Vial SLOW IVP 01/03/21 21:45 2 mg Q1H PRN Administration Breakthrough agitation Methylprednisolone Sodium Succinate 20 mg 12/09/20 12:00 12/13/20 12:19 Methylprednisolone Sod Succ 40 Mg Vial IVP 20 mg Q6HR RUBIA Administration Morphine Sulfate 2 mg 12/04/20 21:45 12/09/20 01:11 Morphine 2 Mg/Ml Vial SLOW IVP 01/03/21 21:45 2 mg Q1H PRN Administration Breakthrough Pain/Agitation Nicotine 21 mg 12/06/20 09:00 12/13/20 08:37 Nicotine 21 Mg Patch TD 21 mg DAILY RUBIA Administration Pantoprazole Sodium 40 mg 12/12/20 09:00 12/13/20 08:26 Pantoprazole 40 Mg Granules Packet PO 40 mg DAILY RUBIA Administration Propofol 1,000 mg 12/04/20 21:45 12/11/20 09:11 Propofol 1,000 Mg/100 Ml Vial IV 01/03/21 21:45 1,000 mg INF PRN Administration TO ACHIEVE GOAL RASS Protocol Propofol 20 mg 12/04/20 21:45 12/11/20 04:00 Propofol Bolus 1,000 Mg/100 Ml Vial IV 01/03/21 21:45 20 mg Q5MIN PRN Administration BREAKTHROUGH AGITATION Sodium Chloride 10 ml 12/11/20 09:00 12/13/20 08:38 Flush - Normal Saline 10 Ml Syringe IVF 10 ml Q12HR RUBIA Administration Sterile Water 10 ml 12/04/20 22:04 12/05/20 04:43 Sterile Water 10 Ml Vial IVP 10 ml Q30MIN PRN Administration NEEDED FOR RECONSTITUTION Sterile Water 1 ml 12/04/20 22:15 12/06/20 17:33 Bacteriostatic Water 30 Ml Vial FS 1 ml PRN PRN Administration RECONSTITUTION Ziprasidone 20 mg 12/11/20 09:00 12/13/20 08:26 Ziprasidone 20 Mg Vial IM 20 mg BID RUBIA Administration Hospitalist Exam Vitals: Vital Signs (12 hours) Temp Pulse Resp BP Pulse Ox 12/13/20 16:00 99.7 F H 22 H 12/13/20 15:05 98 175/89 H 12/13/20 14:00 22 H 12/13/20 12:00 28 H 12/13/20 10:53 92 12/13/20 10:00 24 H 12/13/20 08:00 99.5 F 22 H 93 L 12/13/20 07:12 102 H 141/76 H 12/13/20 06:00 24 H Weight Admit Weight 218 lb Weight 217 lb 13.067 oz Most Recent Monitor Data Heart Rate from ECG 109 NIBP 175/89 NIBP BP-Mean 117 Respiration from ECG 31 SpO2 91 Hosp A/P - Plan Assessment/plan: Acute hypoxic respiratory failure Due to COPD exacerbation patient is intubated and mechanically ventilated. Sepsis Pt is on Zosyn and azithromycin. COPD exacerbation continue Solu-Medrol, duo nebs Pneumonia Patient is on Zosyn and azithromycin. History of heart failure Stable NSTEMI Type II secondary to demand.
[2020-12-13] MEDS: Acetaminophen 325 MG TAB PO PRN (20:23)
[2020-12-14] MEDS: Piperacillin/Tazobactam 4.5 GM in Sodium Chloride 0.9% 100 ML IVPB SCH ×3 (01:53→18:01)
[2020-12-14] MEDS: Lorazepam 2 MG/ML VIAL SLOW IVP PRN (01:54)
[2020-12-14 04:28] LABS: #Eosinphils 0.1 thou/uL (0.0-0.7); #Lymphocytes 0.5 thou/uL (1.20-3.40); #Monocytes 0.6 thou/uL (0.11-0.59); #Neutrophils 12.9 thou/uL (1.40-6.50); %Basophils 0.2 % (0.0-1.0); %Eosinophils 0.4 % (0.0-10.0); %Lymphocytes 3.8 % (21.0-51.0); %Monocytes 3.9 % (0.0-10.0); %Neutrophils 91.7 % (42.0-75.0); Hemoglobin 12.8 g/dL (14.0-18.0); Mean Corpuscular HGB CONC 31.9 g/dL (32.0-36.0); Mean Corpuscular Hemoglobin 29.1 pg (27.0-31.0); Mean Platelet Volume 9.3 fL (7.4-10.4); Platelet Count 177 thou/uL (130-400); RBC Distribution Width 14.7 % (11.5-14.5); Red Blood Cell (RBC) Count 4.41 mill/uL (4.70-6.10)
[2020-12-14] MEDS: Acetaminophen 325 MG TAB PO PRN ×2 (04:56→09:07)
[2020-12-14 04:59] LABS: Anion Gap 13 mmol/L (10-20); BUN (Urea Nitrogen) 33 mg/dL (8.4-25.7); Calc. Creatinine Clearance 154 mL/min (70-130); Calcium 8.4 mg/dL (7.8-10.44); Carbon Dioxide 22 mmol/L (22-29); Chloride 111 mmol/L (98-107); Glucose 157 mg/dL (70-105); Sodium 142 mmol/L (136-145)
[2020-12-14] MEDS: methylPREDNISolone Sod Succ 40 MG VIAL IVP SCH ×3 (05:00→22:01)
[2020-12-14 07:15] LABS: Actual Bicarbonate (HCO3a) 24.5 mEq/L (22-28); Base Excess (BEa) -0.1 mEq/L (-2.0 to +3.0); CO2 Tension 39.8 mmHg (35.0-45.0); Calcium, Ionized (arterial) 1.18 mmol/L (1.12-1.30); Carboxyhemoglobin (COHb) 0.8 gm% (0.0-3.0); Hemoglobin (Hb) 13.5 g/dL (14.0-18.0); O2 Tension (PaO2), arterial 73.6 mmHg (80.0-100.0); Potassium - ABG Lab 4.06 mmol/L (3.70-5.30); pH, Arterial 7.41 (7.35-7.45)
[2020-12-14 07:26] LABS: Puncture Site RRA
[2020-12-14] MEDS: Divalproex Sodium 125 mg Sprinkle Capsule PER TUBE SCH (08:57)
[2020-12-14] MEDS: Ziprasidone 20 MG VIAL IM SCH (09:00)
[2020-12-14] MEDS: Nicotine 21 MG PATCH TD SCH (09:04)
[2020-12-14] MEDS: AcetaZOLAMIDE 250 MG TAB PO SCH (09:04)
[2020-12-14] MEDS: Pantoprazole 40 MG GRANULES PACKET PO SCH (09:04)
[2020-12-14] MEDS: Enoxaparin Sodium 40 MG/0.4 ML SYRINGE SC SCH (09:12)
--- NOTE | 2020-12-14 13:08 | PRG ---
DATE OF SERVICE: 35 minutes of critical care time. SUBJECTIVE: The patient remains intubated on mechanical ventilation. For the first time today, he is waking up his nurse thinks that this is because the Geodon was not given this morning. Essentially, he is not receiving anything. I do find him awake, alert, following commands. His is at the bedside. OBJECTIVE: VITAL SIGNS: His temperature is 100.2, pulse 99, blood pressure 152/76, O2 saturation 93%. HEENT: Unremarkable. NECK: No JVD. LUNGS: Fairly clear anteriorly. CARDIOVASCULAR: S1 and S2, regular. ABDOMEN: Soft and nontender. EXTREMITIES: No clubbing, cyanosis, or edema. LABORATORY DATA: White blood cell count 14, hematocrit 40, and platelet count 177. Sodium 142, potassium 4, chloride 111, CO2 of 22, BUN 33, creatinine 0.7, glucose 157. His chest x-ray shows cardiomegaly. No acute infiltrates. ASSESSMENT: 1. Acute respiratory failure related to chronic obstructive pulmonary disease. 2. Obesity. 3. Improved metabolic alkalosis, on Diamox. PLAN: 1. Hold all sedation. 2. CPAP trial. 3. Hopefully, extubate today or tomorrow. 4. Cut down Diamox to once daily. 5. Discussed with at bedside. Job ID: [id number]
--- NOTE | 2020-12-14 16:05 | RAD ---
EXAM: Single view of the chest HISTORY: Pneumonia COMPARISON: 12/13/2020 FINDINGS: Single view of the chest shows a normal sized cardiomediastinal silhouette. The endotrache al tube and NG tube are unchanged in position. Stable multifocal infiltrates are seen in the lungs. Small bilateral pleural effusions. Degenerative changes are seen in the spine. IMPRESSION: Stable exam
--- NOTE | 2020-12-14 17:21 | PDOC.HOSPP ---
- Subjective Encounter Date: 12/14/20 Encounter Time: 12:00 Subjective: Patient seen for follow-up regarding respiratory failure. He is intubated, could not complete review of systems. - Objective Vital Signs & Weight: Vital Signs (12 hours) Temp Pulse Resp BP Pulse Ox 12/14/20 16:00 99.4 F 12/14/20 15:14 120 H 12/14/20 14:00 27 H 12/14/20 12:00 99.4 F 21 H 12/14/20 11:03 101 H 12/14/20 10:00 24 H 12/14/20 09:37 99.4 F 99 23 H 150/79 H 12/14/20 09:07 100.2 F H 102 H 20 12/14/20 08:00 100.2 F H 22 H 93 L 12/14/20 07:01 93 12/14/20 06:00 34 H Weight Admit Weight 218 lb Weight 215 lb 2.738 oz Most Recent Monitor Data Heart Rate from ECG 103 NIBP 159/81 NIBP BP-Mean 107 Respiration from ECG 29 SpO2 93 I&O: 12/13/20 12/14/20 12/15/20 06:59 06:59 06:59 Intake Total 1298 1238 220 Output Total 4181 8010 1010 [facility] -2887 -2172 -790 Result Diagrams: 12/14/20 03:42 12/14/20 03:42 Additional Labs: Accuchecks 12/13/20 21:32 POC Glucose 164 H I reviewed patient's labs and MAR Hospitalist ROS - Review of Systems ROS unobtainable: due to endotracheal tube - Medication Medications: Active Medications Generic Name Dose Route Start Last Admin Trade Name Freq PRN Reason Stop Dose Admin Acetaminophen 650 mg 12/04/20 20:50 12/14/20 09:07 Acetaminophen 325 Mg Tab PO 650 mg Q4H PRN Administration Headache/Fever/Mild Pain (1-3) Albuterol/Ipratropium 3 ml 12/10/20 10:30 12/14/20 15:14 Ipratropium/Albuterol Sulfate 3 Ml Neb NEB 3 ml [id number] RUBIA Administration Enoxaparin Sodium 40 mg 12/05/20 09:00 12/14/20 09:12 Enoxaparin Sodium 40 Mg/0.4 Ml Syringe SC 40 mg 0900 RUBIA Administration Fentanyl 100 mls @ 0 mls/hr 12/04/20 21:45 12/10/20 08:56 Fentanyl Cadd IV 01/03/21 21:45 100 mls INF RUBAI Administration Protocol Per Protocol Piperacillin Sod/Tazobactam 100 mls @ 200 mls/hr 12/05/20 02:00 12/14/20 09:28 Sod 4.5 gm/ Sodium Chloride IVPB 100 mls 0200,1000,1800 RUBIA Administration Dexmedetomidine HCl 400 mcg/ 100 mls @ 0 mls/hr 12/08/20 16:30 12/09/20 23:20 Sodium Chloride IVPB 100 mls INF RUBIA Administration Protocol Per Protocol Lorazepam 2 mg 12/04/20 21:45 12/14/20 01:54 Lorazepam 2 Mg/Ml Vial SLOW IVP 01/03/21 21:45 2 mg Q1H PRN Administration Breakthrough agitation Morphine Sulfate 2 mg 12/04/20 21:45 12/09/20 01:11 Morphine 2 Mg/Ml Vial SLOW IVP 01/03/21 21:45 2 mg Q1H PRN Administration Breakthrough Pain/Agitation Nicotine 21 mg 12/06/20 09:00 12/14/20 09:04 Nicotine 21 Mg Patch TD 21 mg DAILY RUBIA Administration Pantoprazole Sodium 40 mg 12/12/20 09:00 12/14/20 09:04 Pantoprazole 40 Mg Granules Packet PO 40 mg DAILY RUBIA Administration Propofol 1,000 mg 12/04/20 21:45 12/11/20 09:11 Propofol 1,000 Mg/100 Ml Vial IV 01/03/21 21:45 1,000 mg INF PRN Administration TO ACHIEVE GOAL RASS Protocol Propofol 20 mg 12/04/20 21:45 12/11/20 04:00 Propofol Bolus 1,000 Mg/100 Ml Vial IV 01/03/21 21:45 20 mg Q5MIN PRN Administration BREAKTHROUGH AGITATION Sodium Chloride 10 ml 12/11/20 09:00 12/14/20 09:15 Flush - Normal Saline 10 Ml Syringe IVF 10 ml Q12HR RUBIA Administration Sterile Water 10 ml 12/04/20 22:04 12/05/20 04:43 Sterile Water 10 Ml Vial IVP 10 ml Q30MIN PRN Administration NEEDED FOR RECONSTITUTION Sterile Water 1 ml 12/04/20 22:15 12/06/20 17:33 Bacteriostatic Water 30 Ml Vial FS 1 ml PRN PRN Administration RECONSTITUTION Hospitalist Exam Vitals: Vital Signs (12 hours) Temp Pulse Resp BP Pulse Ox 12/14/20 16:00 99.4 F 12/14/20 15:14 120 H 12/14/20 14:00 27 H 12/14/20 12:00 99.4 F 21 H 12/14/20 11:03 101 H 12/14/20 10:00 24 H 12/14/20 09:37 99.4 F 99 23 H 150/79 H 12/14/20 09:07 100.2 F H 102 H 20 12/14/20 08:00 100.2 F H 22 H 93 L 12/14/20 07:01 93 12/14/20 06:00 34 H Weight Admit Weight 218 lb Weight 215 lb 2.738 oz Most Recent Monitor Data Heart Rate from ECG 103 NIBP 159/81 NIBP BP-Mean 107 Respiration from ECG 29 SpO2 93 General - other findings: Intubated ENT: moist mucosa Neck: no lymphadenopathy Heart: RRR Respiratory: CTAB Gastrointestinal: soft Skin: no rashes Psychiatric - other findings: Could not assess Hosp A/P - Plan December 14, 2020: Patient is a 45-year-old gentleman who was admitted to the hospital on December 04, 2020 for acute hypoxic respiratory failure secondary to COPD exacerbation. He continues to be intubated, difficult to wean. Pulmonology following. Assessment/plan: Acute hypoxic respiratory failure patient is intubated and mechanically ventilated. Sepsis Continue Zosyn and azithromycin. COPD exacerbation Patient is on Solu-Medrol, duo nebs Pneumonia Continue Zosyn and azithromycin. History of heart failure Stable NSTEMI Type II secondary to demand.
[2020-12-14] MEDS ORDERED: Fentanyl BOLUS 250 ML IVPB PRN (21:48)
[2020-12-14] MEDS ORDERED: Lorazepam 2 MG/ML VIAL SLOW IVP PRN (21:48)
[2020-12-14] MEDS ORDERED: Morphine 2 MG/ML VIAL SLOW IVP PRN (21:48)
[2020-12-14] MEDS ORDERED: Fentanyl CADD 100 ML IV SCH (22:00)
[2020-12-15] MEDS: Piperacillin/Tazobactam 4.5 GM in Sodium Chloride 0.9% 100 ML IVPB SCH (01:44)
[2020-12-15 07:02] LABS: Hemoglobin 13.2 g/dL (14.0-18.0); Mean Corpuscular HGB CONC 32.6 g/dL (32.0-36.0); Mean Corpuscular Hemoglobin 29.1 pg (27.0-31.0); Mean Corpuscular Volume 89.5 fL (78.0-98.0); Mean Platelet Volume 8.8 fL (7.4-10.4); Platelet Count 179 thou/uL (130-400); RBC Distribution Width 14.5 % (11.5-14.5); Red Blood Cell (RBC) Count 4.54 mill/uL (4.70-6.10); White Blood Cell (WBC) Count 21.9 thou/uL (4.8-10.8)
[2020-12-15 07:20] LABS: Anion Gap 10 mmol/L (10-20); BUN (Urea Nitrogen) 26 mg/dL (8.4-25.7); Calc. Creatinine Clearance 146 mL/min (70-130); Calcium 8.2 mg/dL (7.8-10.44); Carbon Dioxide 26 mmol/L (22-29); Chloride 111 mmol/L (98-107); Glucose 130 mg/dL (70-105); Potassium 3.8 mmol/L (3.5-5.1); Sodium 143 mmol/L (136-145)
[2020-12-15 07:52] LABS: Band 2 % (5-11); Lymphocytes 7 % (21-51); MDiff Complete? YES; Monocytes 6 % (0-10); Neutrophil 85 % (42-75)
[2020-12-15 08:05] LABS: Actual Bicarbonate (HCO3a) 22.2 mEq/L (22-28); Base Excess (BEa) -2.7 mEq/L (-2.0 to +3.0); CO2 Tension 38.9 mmHg (35.0-45.0); Calcium, Ionized (arterial) 1.19 mmol/L (1.12-1.30); Hemoglobin (Hb) 14.3 g/dL (14.0-18.0); O2 Tension (PaO2), arterial 76.1 mmHg (80.0-100.0); pH, Arterial 7.37 (7.35-7.45)
[2020-12-15 08:10] LABS: Puncture Site RRA
[2020-12-15 08:11] LABS: ALV-art Gradient 160.475 mmHg (0-20)
[2020-12-15] MEDS: Nicotine 21 MG PATCH TD SCH (08:29)
[2020-12-15] MEDS: Pantoprazole 40 MG GRANULES PACKET PO SCH (08:29)
[2020-12-15] MEDS: methylPREDNISolone Sod Succ 40 MG VIAL IVP SCH ×2 (08:30→20:21)
[2020-12-15] MEDS: Enoxaparin Sodium 40 MG/0.4 ML SYRINGE SC SCH (08:30)
[2020-12-15] MEDS ORDERED: DC Sedation Protocol FS ONE (08:52)
[2020-12-15] MEDS: AcetaZOLAMIDE 250 MG TAB PO SCH (08:58)
--- NOTE | 2020-12-15 09:07 | PRG ---
DATE OF SERVICE: 12/15/2020 30 minutes critical care time. SUBJECTIVE: The patient is awake, alert, off sedation. He is on CPAP mode. Seems to be doing well. OBJECTIVE: VITAL SIGNS: His temperature is 100.0, pulse 103, blood pressure 154/86. HEENT: Unremarkable. NECK: No adenopathy or JVD. LUNGS: Fairly clear anteriorly. CARDIOVASCULAR: S1 and S2. Regular. ABDOMEN: Soft. EXTREMITIES: No edema. IMAGING STUDIES: His chest x-ray is fairly clear. LABORATORY DATA: White blood cell count 21.9, hematocrit 40, and platelet count 179. PH of 7.37, pCO2 of 38, pO2 of 76. Sodium 143, potassium 3.8, chloride 111, CO2 , creatinine 0.7, glucose 130. ASSESSMENT: 1. Respiratory failure requiring mechanical ventilation. 2. Chronic obstructive pulmonary disease with exacerbation. 3. Low-grade fever on antibiotics - has completed full course. PLAN: 1. Stop antibiotics. 2. Stop sedation, extubate the patient. 3. Continue low-dose Diamox. 4. Steroid dose was decreased yesterday and probably decreased to another day or 2. Job ID: [id number]
--- NOTE | 2020-12-15 10:55 | RAD ---
EXAM: Chest one view: HISTORY: Pneumonia follow-up COMPARISON: 12/14/2020 FINDINGS: Life support tubes in place. Heart size: Within normal limits. Lungs: Evidence for stable bilateral vascular congestion and probable small pleural effusions. No pneumothorax. IMPRESSION: Stable exam. Continued short-term follow-up.
--- NOTE | 2020-12-15 11:45 | PDOC.HOSPP ---
- Subjective Encounter Date: 12/15/20 non-verbal (On the vent) - Objective Vital Signs & Weight: Vital Signs (12 hours) Temp Pulse Resp Pulse Ox 12/15/20 10:46 104 H 20 96 12/15/20 09:05 104 H 20 96 12/15/20 08:00 99.6 F 12/15/20 07:58 106 H 12/15/20 06:00 29 H 12/15/20 04:00 30 H 12/15/20 02:52 113 H 12/15/20 02:00 30 H 12/15/20 00:00 100 F H 30 H Weight Admit Weight 218 lb Weight 211 lb 10.3 oz Most Recent Monitor Data Heart Rate from ECG 97 NIBP 158/81 NIBP BP-Mean 106 Respiration from ECG 29 SpO2 100 I&O: 12/14/20 12/15/20 12/16/20 06:59 06:59 06:59 Intake Total 1238 672 60 Output Total 8320 2780 350 Balance -2172 -2108 -290 Result Diagrams: 12/15/20 06:50 12/15/20 06:50 Hospitalist ROS - Medication Medications: Active Medications Generic Name Dose Route Start Last Admin Trade Name Freq PRN Reason Stop Dose Admin Acetaminophen 650 mg 12/04/20 20:50 12/14/20 09:07 Acetaminophen 325 Mg Tab PO 650 mg Q4H PRN Administration Headache/Fever/Mild Pain (1-3) Acetazolamide 250 mg 12/15/20 09:00 12/15/20 08:58 Acetazolamide 250 Mg Tab PO 250 mg DAILY RUBIA Administration Albuterol/Ipratropium 3 ml 12/10/20 10:30 12/15/20 10:46 Ipratropium/Albuterol Sulfate 3 Ml Neb NEB 3 ml [id number] RUBIA Administration Enoxaparin Sodium 40 mg 12/05/20 09:00 12/15/20 08:30 Enoxaparin Sodium 40 Mg/0.4 Ml Syringe SC 40 mg 0900 RUBIA Administration Dexmedetomidine HCl 400 mcg/ 100 mls @ 0 mls/hr 12/08/20 16:30 12/09/20 23:20 Sodium Chloride IVPB 100 mls INF RUBIA Administration Protocol Per Protocol Methylprednisolone Sodium Succinate 20 mg 12/14/20 21:00 12/15/20 08:30 Methylprednisolone Sod Succ 40 Mg Vial IVP 20 mg BID RUBIA Administration Nicotine 21 mg 12/06/20 09:00 12/15/20 08:29 Nicotine 21 Mg Patch TD 21 mg DAILY RUBIA Administration Pantoprazole Sodium 40 mg 12/12/20 09:00 12/15/20 08:29 Pantoprazole 40 Mg Granules Packet PO 40 mg DAILY RUBIA Administration Sodium Chloride 10 ml 12/11/20 09:00 12/15/20 08:30 Flush - Normal Saline 10 Ml Syringe IVF 10 ml Q12HR RUBIA Administration Sterile Water 10 ml 12/04/20 22:04 12/05/20 04:43 Sterile Water 10 Ml Vial IVP 10 ml Q30MIN PRN Administration NEEDED FOR RECONSTITUTION Sterile Water 1 ml 12/04/20 22:15 12/06/20 17:33 Bacteriostatic Water 30 Ml Vial FS 1 ml PRN PRN Administration RECONSTITUTION Hospitalist Exam Vitals: Vital Signs (12 hours) Temp Pulse Resp Pulse Ox 12/15/20 10:46 104 H 20 96 12/15/20 09:05 104 H 20 96 12/15/20 08:00 99.6 F 12/15/20 07:58 106 H 12/15/20 06:00 29 H 12/15/20 04:00 30 H 12/15/20 02:52 113 H 12/15/20 02:00 30 H 12/15/20 00:00 100 F H 30 H Weight Admit Weight 218 lb Weight 211 lb 10.3 oz Most Recent Monitor Data Heart Rate from ECG 97 NIBP 158/81 NIBP BP-Mean 106 Respiration from ECG 29 SpO2 100 ENT: normocephalic atraumatic Neck: supple Heart: RRR Respiratory: normal chest expansion, no tachypnea Extremities: no cyanosis, no clubbing Hosp A/P (1) Acute respiratory failure with hypoxia Code(s): J96.01 - ACUTE RESPIRATORY FAILURE WITH HYPOXIA Status: Acute (2) COPD exacerbation Code(s): J44.1 - CHRONIC OBSTRUCTIVE PULMONARY DISEASE W (ACUTE) EXACERBATION Status: Acute (3) Pneumonia Code(s): J18.9 - PNEUMONIA, UNSPECIFIED ORGANISM Status: Acute (4) Demand ischemia Code(s): I24.8 - OTHER FORMS OF ACUTE ISCHEMIC HEART DISEASE Status: Acute - Plan The patient is on minimal vent settings. Continue management per pulmonology. Continue scheduled nebulized treatments, antibiotics, and corticosteroids.
[2020-12-16 04:21] LABS: #Basophils 0.1 thou/uL (0.0-0.2); #Lymphocytes 0.7 thou/uL (1.20-3.40); #Monocytes 0.8 thou/uL (0.11-0.59); #Neutrophils 14.1 thou/uL (1.40-6.50); %Basophils 0.4 % (0.0-1.0); %Eosinophils 0.3 % (0.0-10.0); %Lymphocytes 4.6 % (21.0-51.0); %Monocytes 4.9 % (0.0-10.0); %Neutrophils 89.9 % (42.0-75.0); Hemoglobin 13.3 g/dL (14.0-18.0); Mean Corpuscular HGB CONC 33.5 g/dL (32.0-36.0); Mean Corpuscular Hemoglobin 30.4 pg (27.0-31.0); Mean Corpuscular Volume 90.7 fL (78.0-98.0); Mean Platelet Volume 9.5 fL (7.4-10.4); Platelet Count 151 thou/uL (130-400); RBC Distribution Width 14.6 % (11.5-14.5); Red Blood Cell (RBC) Count 4.39 mill/uL (4.70-6.10); White Blood Cell (WBC) Count 15.7 thou/uL (4.8-10.8)
[2020-12-16 04:49] LABS: Anion Gap 10 mmol/L (10-20); BUN (Urea Nitrogen) 24 mg/dL (8.4-25.7); Calc. Creatinine Clearance 160 mL/min (70-130); Calcium 8.4 mg/dL (7.8-10.44); Carbon Dioxide 24 mmol/L (22-29); Chloride 110 mmol/L (98-107); Glucose 138 mg/dL (70-105); Potassium 3.8 mmol/L (3.5-5.1); Sodium 140 mmol/L (136-145)
--- NOTE | 2020-12-16 08:14 | RAD ---
Exam: Chest one view HISTORY:Pneumonia Comparison: 12/15/2020 FINDINGS: Lines and tubes: Interval removal of endotracheal and nasogastric tube Cardiac silhouette: Normal Aorta: Unremarkable Pulmonary vessels: Upper normal pulmonary vessels Costophrenic angles: Clear LUNGS: Scattered interstitial opacities, less evident than the previous exam Pneumothorax: None Osseous abnormalities: None IMPRESSION: Decreasing pulmonary vascular congestion and interstitial edema.
[2020-12-16] MEDS: AcetaZOLAMIDE 250 MG TAB PO SCH (10:18)
[2020-12-16] MEDS: Nicotine 21 MG PATCH TD SCH (10:18)
[2020-12-16] MEDS: methylPREDNISolone Sod Succ 40 MG VIAL IVP SCH ×2 (10:18→22:22)
[2020-12-16] MEDS: Pantoprazole 40 MG GRANULES PACKET PO SCH (10:18)
[2020-12-16] MEDS: Enoxaparin Sodium 40 MG/0.4 ML SYRINGE SC SCH (10:18)
--- NOTE | 2020-12-16 15:33 | PDOC.HOSPP ---
- Subjective Encounter Date: 12/16/20 Subjective: The patient is resting comfortably in bed. He is alert and denies any complaints. - Objective Vital Signs & Weight: Vital Signs (12 hours) Temp Pulse Resp Pulse Ox 12/16/20 15:13 100 24 H 96 12/16/20 10:44 97 21 H 99 12/16/20 08:00 98.7 F 93 L 12/16/20 06:44 98 12/16/20 06:42 96 27 H 99 12/16/20 04:00 98.1 F Weight Admit Weight 218 lb Weight 200 lb 9.93 oz Most Recent Monitor Data Heart Rate from ECG 97 NIBP 140/78 NIBP BP-Mean 98 Respiration from ECG 30 SpO2 94 I&O: 12/15/20 12/16/20 12/17/20 06:59 06:59 06:59 Intake Total 672 520 180 Output Total 9719 3585 650 Balance -2108 -3065 -470 Result Diagrams: 12/16/20 03:25 12/16/20 03:25 Hospitalist ROS - Medication Medications: Active Medications Generic Name Dose Route Start Last Admin Trade Name Freq PRN Reason Stop Dose Admin Acetaminophen 650 mg 12/04/20 20:50 12/14/20 09:07 Acetaminophen 325 Mg Tab PO 650 mg Q4H PRN Administration Headache/Fever/Mild Pain (1-3) Acetazolamide 250 mg 12/15/20 09:00 12/16/20 10:18 Acetazolamide 250 Mg Tab PO 250 mg DAILY RUBIA Administration Albuterol/Ipratropium 3 ml 12/10/20 10:30 12/16/20 15:13 Ipratropium/Albuterol Sulfate 3 Ml Neb NEB 3 ml [id number] RUBIA Administration Enoxaparin Sodium 40 mg 12/05/20 09:00 12/16/20 10:18 Enoxaparin Sodium 40 Mg/0.4 Ml Syringe SC 40 mg 0900 RUBIA Administration Dexmedetomidine HCl 400 mcg/ 100 mls @ 0 mls/hr 12/08/20 16:30 12/09/20 23:20 Sodium Chloride IVPB 100 mls INF RUBIA Administration Protocol Per Protocol Methylprednisolone Sodium Succinate 20 mg 12/14/20 21:00 12/16/20 10:18 Methylprednisolone Sod Succ 40 Mg Vial IVP 20 mg BID RUBIA Administration Nicotine 21 mg 12/06/20 09:00 12/16/20 10:18 Nicotine 21 Mg Patch TD 21 mg DAILY RUBIA Administration Pantoprazole Sodium 40 mg 12/12/20 09:00 12/16/20 10:18 Pantoprazole 40 Mg Granules Packet PO 40 mg DAILY RUBIA Administration Sodium Chloride 10 ml 12/11/20 09:00 12/16/20 10:19 Flush - Normal Saline 10 Ml Syringe IVF 10 ml Q12HR RUBIA Administration Sterile Water 10 ml 12/04/20 22:04 12/05/20 04:43 Sterile Water 10 Ml Vial IVP 10 ml Q30MIN PRN Administration NEEDED FOR RECONSTITUTION Sterile Water 1 ml 12/04/20 22:15 12/06/20 17:33 Bacteriostatic Water 30 Ml Vial FS 1 ml PRN PRN Administration RECONSTITUTION Hospitalist Exam Vitals: Vital Signs (12 hours) Temp Pulse Resp Pulse Ox 12/16/20 15:13 100 24 H 96 12/16/20 10:44 97 21 H 99 12/16/20 08:00 98.7 F 93 L 12/16/20 06:44 98 12/16/20 06:42 96 27 H 99 12/16/20 04:00 98.1 F Weight Admit Weight 218 lb Weight 200 lb 9.93 oz Most Recent Monitor Data Heart Rate from ECG 97 NIBP 140/78 NIBP BP-Mean 98 Respiration from ECG 30 SpO2 94 General Appearance: awake alert ENT: normocephalic atraumatic Neck: supple Heart: RRR Respiratory: normal chest expansion, no tachypnea Extremities: no cyanosis, no clubbing Neurological: cranial nerve grossly intact Hosp A/P (1) Acute respiratory failure with hypoxia Code(s): J96.01 - ACUTE RESPIRATORY FAILURE WITH HYPOXIA Status: Acute (2) COPD exacerbation Code(s): J44.1 - CHRONIC OBSTRUCTIVE PULMONARY DISEASE W (ACUTE) EXACERBATION Status: Acute (3) Pneumonia Code(s): J18.9 - PNEUMONIA, UNSPECIFIED ORGANISM Status: Acute (4) Demand ischemia Code(s): I24.8 - OTHER FORMS OF ACUTE ISCHEMIC HEART DISEASE Status: Acute - Plan Extubated yesterday. No new complaints. Continue scheduled nebulized treatments, antibiotics, and corticosteroids.
--- NOTE | 2020-12-16 19:13 | PRG ---
DATE OF SERVICE: 12/16/2020 SUBJECTIVE: Rigo Mathur is stable. He is in no distress. He is still encephalopathic. OBJECTIVE: VITAL SIGNS: Heart rate is 111, blood pressure 130/81, respiratory rate is in the high 20s, oximetry is in the low 90s. LUNGS: Remarkable for coarse equal breath sounds. HEART: Regular rhythm. ABDOMEN: Soft, nontender. LABORATORY DATA: White count 15.7, hemoglobin 13.3, and platelets 151. Sodium 140, potassium 3.8, chloride 110, bicarb 24, BUN 24, and creatinine 0.7. IMPRESSION: 1. Status post mechanical ventilation for chronic obstructive pulmonary disease exacerbation, requiring emergent intubation. 2. Encephalopathy, likely related to his critical illness. Steroid dosing has already been decreased. We will continue supportive care. He is stable to move out of Critical Care, but probably would need a sitter. Job ID: [id number]
[2020-12-17 04:29] LABS: #Lymphocytes 0.6 thou/uL (1.20-3.40); #Monocytes 0.9 thou/uL (0.11-0.59); %Basophils 0.2 % (0.0-1.0); %Eosinophils 0.2 % (0.0-10.0); %Lymphocytes 3.9 % (21.0-51.0); %Monocytes 5.1 % (0.0-10.0); %Neutrophils 90.6 % (42.0-75.0); Mean Corpuscular HGB CONC 33.3 g/dL (32.0-36.0); Mean Corpuscular Hemoglobin 29.6 pg (27.0-31.0); Mean Corpuscular Volume 88.9 fL (78.0-98.0); Mean Platelet Volume 9.5 fL (7.4-10.4); Platelet Count 187 thou/uL (130-400); RBC Distribution Width 14.8 % (11.5-14.5); Red Blood Cell (RBC) Count 4.71 mill/uL (4.70-6.10); White Blood Cell (WBC) Count 16.5 thou/uL (4.8-10.8)
[2020-12-17 04:49] LABS: Anion Gap 13 mmol/L (10-20); BUN (Urea Nitrogen) 24 mg/dL (8.4-25.7); Calc. Creatinine Clearance 127 mL/min (70-130); Calcium 8.7 mg/dL (7.8-10.44); Carbon Dioxide 22 mmol/L (22-29); Chloride 109 mmol/L (98-107); Glucose 138 mg/dL (70-105); Potassium 3.9 mmol/L (3.5-5.1); Sodium 140 mmol/L (136-145)
[2020-12-17] MEDS: Pantoprazole 40 MG GRANULES PACKET PO SCH (08:59)
[2020-12-17] MEDS: methylPREDNISolone Sod Succ 40 MG VIAL IVP SCH (08:59)
[2020-12-17] MEDS: Nicotine 21 MG PATCH TD SCH (08:59)
[2020-12-17] MEDS: Enoxaparin Sodium 40 MG/0.4 ML SYRINGE SC SCH (08:59)
[2020-12-17] MEDS: AcetaZOLAMIDE 250 MG TAB PO SCH (08:59)
--- NOTE | 2020-12-17 10:13 | RAD ---
CHEST 1 VIEW PORTABLE: Date: 12/17/2020 HISTORY: Follow-up pneumonia. COMPARISON: 12/16/2020. FINDINGS: There is continued improvement in the bibasilar parenchymal changes. Heart size is normal. No signifi cant pleural effusion. IMPRESSION: Continued clearing in the bibasilar parenchymal changes, particularly the right base. POS: RRE
--- NOTE | 2020-12-17 11:12 | PRG ---
DATE OF SERVICE: 12/17/2020 SUBJECTIVE: The patient is doing reasonably well post extubation. He is still little hoarse. He has no complaints about his breathing. OBJECTIVE: VITAL SIGNS: On exam, his temperature is 98.2, pulse 103, respirations 18, O2 saturation 93% on room air, and blood pressure 155/72. HEENT: Unremarkable. NECK: No JVD. CHEST: Clear. CARDIAC: S1 and S2. Regular. ABDOMEN: Soft. EXTREMITIES: No edema. LABORATORY DATA: White blood cell count 16.5, hematocrit 41, and platelet count 187. Sodium 140, potassium 3.9, chloride 109, CO2 of 22, BUN 24, creatinine 0.8, and glucose 138. ASSESSMENT: 1. Chronic obstructive pulmonary disease with exacerbation. 2. Status post respiratory failure, requiring mechanical ventilation. PLAN: Main issue now is rehabilitative. We can decrease his nebs to every 6 hours. If he is a candidate for rehab, he should probably go there for physical therapy if he qualifies. I will stop his daily labs. I will also stop the acetazolamide. There are no further pulmonary recommendations. Please call if further assistance needed. Job ID: [id number] [facility]
--- NOTE | 2020-12-17 14:08 | CT ---
Head CT without contrast 12/17/2020: Comparison: None HISTORY: Altered mental status TECHNIQUE: Axial CT imaging at 5 mm intervals from vertex through skull base without contrast FINDINGS: The visualized paranasal sinuses and mastoid air cells are grossly unremarkable. There is n o displaced calvarial fracture. The lateral ventricles are relatively prominent with no significant atrophy noted. There is a midline CSF density in the posterior aspect of the posterior fossa measuring 1.8 cm which may represent a megacisterna magna or an arachnoid cyst. No intracranial hemorrhage, midline shift, or mass effect. IMPRESSION: Prominence of the ventricular system. Juan cisterna magna versus arachnoid cyst within th e posterior fossa. Normal pressure hydrocephalus in the proper clinical setting cannot be excluded. Follow-up brain MRI may be beneficial for full assessment.
--- NOTE | 2020-12-17 14:50 | PDOC.HOSPP ---
- Subjective Encounter Date: 12/17/20 Subjective: The patient's family expressed concerns about worsening confusion. His mental status does not appear to have changed much since yesterday. He denies any new complaints. - Objective Vital Signs & Weight: Vital Signs (12 hours) Temp Pulse Resp BP Pulse Ox 12/17/20 13:05 96 20 88 L 12/17/20 08:00 98.2 F 103 H 18 155/72 H 93 L 12/17/20 07:27 87 L 12/17/20 07:25 100 20 87 L 12/17/20 03:39 98.3 F 99 20 171/81 H 95 12/17/20 03:26 96 22 H 98 Weight Admit Weight 218 lb Weight 191 lb 4 oz Most Recent Monitor Data Heart Rate from ECG 105 NIBP 125/82 NIBP BP-Mean 96 Respiration from ECG 14 SpO2 92 I&O: 12/16/20 12/17/20 12/18/20 06:59 06:59 06:59 Intake Total 520 350 Output Total 3585 1200 Balance -3065 -850 Result Diagrams: 12/17/20 03:50 12/17/20 03:50 Hospitalist ROS - Medication Medications: Active Medications Generic Name Dose Route Start Last Admin Trade Name Freq PRN Reason Stop Dose Admin Acetaminophen 650 mg 12/04/20 20:50 12/14/20 09:07 Acetaminophen 325 Mg Tab PO 650 mg Q4H PRN Administration Headache/Fever/Mild Pain (1-3) Albuterol/Ipratropium 3 ml 12/17/20 13:00 12/17/20 13:05 Ipratropium/Albuterol Sulfate 3 Ml Neb NEB 3 ml [id number] RUBIA Administration Enoxaparin Sodium 40 mg 12/05/20 09:00 12/17/20 08:59 Enoxaparin Sodium 40 Mg/0.4 Ml Syringe SC 40 mg 0900 RUBIA Administration Nicotine 21 mg 12/06/20 09:00 12/17/20 08:59 Nicotine 21 Mg Patch TD 21 mg DAILY RUBIA Administration Pantoprazole Sodium 40 mg 12/12/20 09:00 12/17/20 08:59 Pantoprazole 40 Mg Granules Packet PO 40 mg DAILY RUBIA Administration Sodium Chloride 10 ml 12/11/20 09:00 12/17/20 08:59 Flush - Normal Saline 10 Ml Syringe IVF 10 ml Q12HR RUBIA Administration Sterile Water 10 ml 12/04/20 22:04 12/05/20 04:43 Sterile Water 10 Ml Vial IVP 10 ml Q30MIN PRN Administration NEEDED FOR RECONSTITUTION Sterile Water 1 ml 12/04/20 22:15 12/06/20 17:33 Bacteriostatic Water 30 Ml Vial FS 1 ml PRN PRN Administration RECONSTITUTION Hospitalist Exam Vitals: Vital Signs (12 hours) Temp Pulse Resp BP Pulse Ox 12/17/20 13:05 96 20 88 L 12/17/20 08:00 98.2 F 103 H 18 155/72 H 93 L 12/17/20 07:27 87 L 12/17/20 07:25 100 20 87 L 12/17/20 03:39 98.3 F 99 20 171/81 H 95 12/17/20 03:26 96 22 H 98 Weight Admit Weight 218 lb Weight 191 lb 4 oz Most Recent Monitor Data Heart Rate from ECG 105 NIBP 125/82 NIBP BP-Mean 96 Respiration from ECG 14 SpO2 92 General Appearance: awake alert ENT: normocephalic atraumatic Neck: supple Heart: RRR Respiratory: normal chest expansion, no tachypnea Extremities: no cyanosis, no clubbing Hosp A/P (1) Acute respiratory failure with hypoxia Code(s): J96.01 - ACUTE RESPIRATORY FAILURE WITH HYPOXIA Status: Acute (2) COPD exacerbation Code(s): J44.1 - CHRONIC OBSTRUCTIVE PULMONARY DISEASE W (ACUTE) EXACERBATION Status: Acute (3) Pneumonia Code(s): J18.9 - PNEUMONIA, UNSPECIFIED ORGANISM Status: Acute (4) Demand ischemia Code(s): I24.8 - OTHER FORMS OF ACUTE ISCHEMIC HEART DISEASE Status: Acute (5) Confusion Code(s): R41.0 - DISORIENTATION, UNSPECIFIED Status: Acute - Plan Extubated on 12/15. He saturating well on room air. Corticosteroids are being weaned off. Continue nebulizer treatments. CT scan of the brain showed findings concerning for normal pressure hydrocephalus. We will order MRI of the brain for further characterization as recommended by radiology.
[2020-12-17] MEDS: Acetaminophen 325 MG TAB PO PRN (20:57)
[2020-12-17] MEDS: predniSONE 20 MG TAB PO SCH (20:57)
[2020-12-18] MEDS: Pantoprazole 40 MG GRANULES PACKET PO SCH (09:10)
[2020-12-18] MEDS: Enoxaparin Sodium 40 MG/0.4 ML SYRINGE SC SCH (09:10)
[2020-12-18] MEDS: predniSONE 20 MG TAB PO SCH ×2 (09:10→20:46)
[2020-12-18] MEDS: Nicotine 21 MG PATCH TD SCH (09:10)
--- NOTE | 2020-12-18 09:20 | PDOC.HOSPP ---
- Subjective Encounter Date: 12/18/20 Subjective: continues to be confused but in no acute distress. - Objective Vital Signs & Weight: Vital Signs (12 hours) Temp Pulse Resp BP Pulse Ox 12/18/20 08:00 94 L 12/18/20 07:41 98.1 F 90 18 137/69 94 L 12/18/20 07:18 93 L 12/18/20 07:16 75 20 93 L 12/18/20 04:00 98.8 F 90 16 129/79 94 L 12/18/20 00:23 97 20 95 12/18/20 00:00 18 93 L Weight Admit Weight 218 lb Weight 191 lb 4 oz Most Recent Monitor Data Heart Rate from ECG 105 NIBP 125/82 NIBP BP-Mean 96 Respiration from ECG 14 SpO2 92 I&O: 12/17/20 12/18/20 12/19/20 06:59 06:59 06:59 Intake Total 350 720 Output Total 1200 520 Balance -850 200 Result Diagrams: 12/17/20 03:50 12/17/20 03:50 Hospitalist ROS - Medication Medications: Active Medications Generic Name Dose Route Start Last Admin Trade Name Freq PRN Reason Stop Dose Admin Acetaminophen 650 mg 12/04/20 20:50 12/17/20 20:57 Acetaminophen 325 Mg Tab PO 650 mg Q4H PRN Administration Headache/Fever/Mild Pain (1-3) Albuterol/Ipratropium 3 ml 12/17/20 13:00 12/18/20 07:16 Ipratropium/Albuterol Sulfate 3 Ml Neb NEB 3 ml [id number] RUBIA Administration Enoxaparin Sodium 40 mg 12/05/20 09:00 12/18/20 09:10 Enoxaparin Sodium 40 Mg/0.4 Ml Syringe SC 40 mg 0900 RUBIA Administration Nicotine 21 mg 12/06/20 09:00 12/18/20 09:10 Nicotine 21 Mg Patch TD 21 mg DAILY RUBIA Administration Pantoprazole Sodium 40 mg 12/12/20 09:00 12/18/20 09:10 Pantoprazole 40 Mg Granules Packet PO 40 mg DAILY RUBIA Administration Prednisone 20 mg 12/17/20 21:00 12/18/20 09:10 Prednisone 20 Mg Tab PO 20 mg BID RUBIA Administration Sodium Chloride 10 ml 12/11/20 09:00 12/18/20 09:10 Flush - Normal Saline 10 Ml Syringe IVF 10 ml Q12HR RUBIA Administration Sterile Water 10 ml 12/04/20 22:04 12/05/20 04:43 Sterile Water 10 Ml Vial IVP 10 ml Q30MIN PRN Administration NEEDED FOR RECONSTITUTION Sterile Water 1 ml 12/04/20 22:15 12/06/20 17:33 Bacteriostatic Water 30 Ml Vial FS 1 ml PRN PRN Administration RECONSTITUTION Hospitalist Exam Vitals: Vital Signs (12 hours) Temp Pulse Resp BP Pulse Ox 12/18/20 08:00 94 L 12/18/20 07:41 98.1 F 90 18 137/69 94 L 12/18/20 07:18 93 L 12/18/20 07:16 75 20 93 L 12/18/20 04:00 98.8 F 90 16 129/79 94 L 12/18/20 00:23 97 20 95 12/18/20 00:00 18 93 L Weight Admit Weight 218 lb Weight 191 lb 4 oz Most Recent Monitor Data Heart Rate from ECG 105 NIBP 125/82 NIBP BP-Mean 96 Respiration from ECG 14 SpO2 92 General Appearance: NAD, awake alert Eye: PERRL ENT: normocephalic atraumatic Neck: supple, symmetric Heart: RRR, no murmur, no gallops Respiratory: CTAB, no wheezes, no rales Gastrointestinal: soft, non-tender Extremities: no cyanosis, no clubbing Skin: normal turgor Hosp A/P (1) COPD exacerbation Code(s): J44.1 - CHRONIC OBSTRUCTIVE PULMONARY DISEASE W (ACUTE) EXACERBATION Status: Acute (2) Confusion Code(s): R41.0 - DISORIENTATION, UNSPECIFIED Status: Acute (3) Demand ischemia Code(s): I24.8 - OTHER FORMS OF ACUTE ISCHEMIC HEART DISEASE Status: Acute - Plan plan for today 2/3 He remains confused, we are awaiting the brain MRI to be done. will continue with Nebs and steroids. his glycemic levels are elevated, I suspect that it is from the steroids, I will start insulin ss.
[2020-12-18] MEDS ORDERED: Dextrose 5% in Water 1,000 ML IV PRN (09:31)
[2020-12-18] MEDS ORDERED: Dextrose 50% Abboject 50 ML SYRINGE SLOW IVP PRN (09:31)
[2020-12-18] MEDS ORDERED: HumaLOG 300 UNITS/3 ML VIAL SC PRN (09:31)
--- NOTE | 2020-12-18 09:36 | PRG ---
DATE OF SERVICE: 12/18/2020 SUBJECTIVE: The patient is doing extremely well, very conversant today. He wants physical therapy to work with him, so he can get stronger and get out of here. OBJECTIVE: VITAL SIGNS: His temperature is 98.1, pulse 90, respirations 18, O2 saturation 94% on 1.5 L, and blood pressure 137/69. HEENT: Unchanged. NECK: No JVD. CHEST: Clear to auscultation. CARDIAC: S1 and S2. Regular. ABDOMEN: Soft. EXTREMITIES: No edema. ASSESSMENT: 1. Chronic obstructive pulmonary disease with exacerbation. 2. Status post mechanical ventilation. PLAN: Wean steroids. Increase activity. Hopefully home in a day or two. Job ID: [id number]
--- NOTE | 2020-12-18 12:10 | MRI ---
MRI BRAIN NONCONTRAST: DATE: 12/18/2020 HISTORY: 55-year-old male with altered mental status and hydrocephalus. COMPARISON: CT of 12/17/2020. No prior MRIs. FINDINGS: The lateral ventricles are mildly to moderately dilated, left greater than right. The third ventricle is also moderately dilated. The fourth ventricle is within normal limits of size. There is no evidence of transependymal migration of CSF in the periventricular white matter which wou ld have been strong evidence for obstructive hydrocephalus. However, absence of such, does not necess arily rule out obstructive hydrocephalus such as NPH. There is a midline posterior fossa cyst. 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 However, the straight sinus and tentorium cerebelli have normal orientations. The Meckel's caves are bilaterally mildly enlarged, raising the possibility of petrous apex cephaloce les. No mass effect, midline shift, or extra-axial fluid collection. There are signal abnormalities in the bilateral mastoid air cells suggestive of at least small bilate ral mastoid effusions. Flow-voids are grossly maintained in the major central arteries of the [place]. There is a small 1 cm focus of hyperintense signal in the right arroyo radiata, which is nonspecific, but probably represents a small focus of chronic ischemic white matter change or old white matter la cunar infarction. There is thin lining of hemosiderin stain outlining the superior sagittal sinus, posterior interhemis pheric falx, and outlining the bilateral cerebellar hemispheres, as well as the midline posterior fos sa cyst. There is no evidence of recent or remote intra-axial hemorrhage. There is no restricted diffusion to indicate any acute infarction. IMPRESSION: 1. No acute findings. 2. Ventriculomegaly. This may or may not represent normal pressure hydrocephalus. Clinical correlati on is recommended (is there gait apraxia, dementia, and/or urinary incontinence?). 3. 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 4. 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 JN Armando POS: [facility]
--- NOTE | 2020-12-18 13:48 | CON ---
NEUROLOGY CONSULTATION DATE OF CONSULTATION: 12/18/2020 REASON FOR CONSULTATION: Altered mental status. HISTORY OF PRESENT ILLNESS: Mr. Boswell is a 55-year-old male with history significant for COPD, hypertension, heart failure, transferred from [place] on 12/04/2020 because of respiratory arrest at home due to COPD exacerbation and pneumonia. He was intubated and sedated and treated for aspiration pneumonia with antibiotics. He was subsequently extubated on 12/15/2020, and since then, he has memory issues, so the is concerned about acute intracranial pathology. Head CT was done, which showed findings concerning for normal-pressure hydrocephalus, but no stroke or bleed. He is alert and oriented to person, place, and time, but has difficulty maintaining conversation and memory issues. Per , he has been normal at home before this hospitalization with no memory issues. REVIEW OF SYSTEMS: Unobtainable due to the patient's mental status. PAST MEDICAL HISTORY: Hypertension, COPD, heart failure. PAST SURGICAL HISTORY: No significant past surgical history. FAMILY HISTORY: No family history of stroke. SOCIAL HISTORY: , lives with his and family. Smokes cigarettes every day. Denies alcohol or illegal drug use. Vital Signs & Weight: Vital Signs (12 hours) Temp Pulse Resp BP Pulse Ox 12/18/20 08:00 94 L 12/18/20 07:41 98.1 F 90 18 137/69 94 L 12/18/20 07:18 93 L 12/18/20 07:16 75 20 93 L 12/18/20 04:00 98.8 F 90 16 129/79 94 L 12/18/20 00:23 97 20 95 12/18/20 00:00 18 93 L Weight Admit Weight 218 lb Weight 191 lb 4 oz Most Recent Monitor Data Heart Rate from ECG 105 NIBP 125/82 NIBP BP-Mean 96 Respiration from ECG 14 SpO2 92 I&O: 12/17/20 12/18/20 12/19/20 06:59 06:59 06:59 Intake Total 350 720 Output Total 1200 520 Balance -850 200 Active Medications Generic Name Dose Route Start Last Admin Trade Name Freq PRN Reason Stop Dose Admin Acetaminophen 650 mg 12/04/20 20:50 12/17/20 20:57 Acetaminophen 325 Mg Tab PO 650 mg Q4H PRN Administration Headache/Fever/Mild Pain (1-3) Albuterol/Ipratropium 3 ml 12/17/20 13:00 12/18/20 07:16 Ipratropium/Albuterol Sulfate 3 Ml Neb NEB 3 ml [id number] RUBIA Administration Enoxaparin Sodium 40 mg 12/05/20 09:00 12/18/20 09:10 Enoxaparin Sodium 40 Mg/0.4 Ml Syringe SC 40 mg 0900 RUBIA Administration Nicotine 21 mg 12/06/20 09:00 12/18/20 09:10 Nicotine 21 Mg Patch TD 21 mg DAILY RUBIA Administration Pantoprazole Sodium 40 mg 12/12/20 09:00 12/18/20 09:10 Pantoprazole 40 Mg Granules Packet PO 40 mg DAILY RUBIA Administration Prednisone 20 mg 12/17/20 21:00 12/18/20 09:10 Prednisone 20 Mg Tab PO 20 mg BID RUBIA Administration Sodium Chloride 10 ml 12/11/20 09:00 12/18/20 09:10 Flush - Normal Saline 10 Ml Syringe IVF 10 ml Q12HR RUBIA Administration Sterile Water 10 ml 12/04/20 22:04 12/05/20 04:43 Sterile Water 10 Ml Vial IVP 10 ml Q30MIN PRN Administration NEEDED FOR RECONSTITUTION Sterile Water 1 ml 12/04/20 22:15 12/06/20 17:33 Bacteriostatic Water 30 Ml Vial FS 1 ml PRN PRN Administration RECONSTITUTION Vitals: Vital Signs (12 hours) Temp Pulse Resp BP Pulse Ox 12/18/20 08:00 94 L 12/18/20 07:41 98.1 F 90 18 137/69 94 L 12/18/20 07:18 93 L 12/18/20 07:16 75 20 93 L 12/18/20 04:00 98.8 F 90 16 129/79 94 L 12/18/20 00:23 97 20 95 12/18/20 00:00 18 93 L Weight Admit Weight 218 lb Weight 191 lb 4 oz Most Recent Monitor Data Heart Rate from ECG 105 NIBP 125/82 NIBP BP-Mean 96 Respiration from ECG 14 SpO2 92 PHYSICAL EXAMINATION: General Appearance: NAD, awake alert Eye: PERRL ENT: normocephalic atraumatic Neck: supple, symmetric Heart: RRR, no murmur, no gallops Respiratory: CTAB, no wheezes, no rales Gastrointestinal: soft, non-tender Extremities: no cyanosis, no clubbing Skin: normal turgor Neurologic: Mental status; the patient is alert and oriented to person, place, time, month, and year. Speech is clear. Cranial nerves 2 through 12 intact. Motor, muscle tone and bulk are normal. Strength 5/5 bilaterally. Sensory intact. Cerebellar, finger-nose testing intact. Gait deferred due to the patient's safety reason. DIAGNOSTIC STUDIES: Data reviewed. I reviewed the MRI of the brain, which did not reveal any acute intracranial pathology, however, it did show there was a concern about normal-pressure hydrocephalus. ASSESSMENT AND PLAN: (1) Confusion Code(s): R41.0 - DISORIENTATION, UNSPECIFIED Status: Acute (2) COPD exacerbation Code(s): J44.1 - CHRONIC OBSTRUCTIVE PULMONARY DISEASE W (ACUTE) EXACERBATION Status: Acute (3) Demand ischemia Code(s): I24.8 - OTHER FORMS OF ACUTE ISCHEMIC HEART DISEASE Status: Acute Mr. Rigo Mathur is a 55-year-old male with history significant for chronic obstructive pulmonary disease, admitted with chronic obstructive pulmonary disease exacerbation and respiratory distress, status post extubation on 12/15. He has memory issues. Per , he has no problems at home with memory, gait, or episodes of urinary incontinence, so workup of the normal-pressure hydrocephalus diagnosis has low yield, but further workup can be done once acute issues are resolved in Neurology Clinic. EEG ongoing. We will follow up on the results. MRI of the brain did not reveal any acute infarction or bleed. Continue neuro checks every 4 hours. Further recommendations will depend on the results of the testing. Continue home medications. Continue medical management per primary team. We will continue to follow. Plan discussed in detail with the patient and the . Thank you for the consult. Job ID: [id number] [facility]
--- NOTE | 2020-12-18 18:35 | PDOC.EEG ---
Neurology EEG Report - Report Report: This EEG was performed using 24 channel [employer] video EEG machine with 24 disc cm ctrodes. This was an extended 2 hours 9 minutes of inpatient video EEG recording. Digital analysis of the EEG was done for spike and seizure detection which revealed no abnormalities. Background: The posterior background rhythm is 9-10 Hz. Excessive beta activity seen intermixed with the recording. Hyperventilation: Not performed. Photic Stimulation: No significant response. Sleep: No stage change is observed. EEG Diagnosis: Occasional irregular theta activity seen during the recording. Clinical Interpretation: This EEG is consistent with mild generalized nonspecific cerebral dysfunction.
[2020-12-19] MEDS: Enoxaparin Sodium 40 MG/0.4 ML SYRINGE SC SCH (09:53)
[2020-12-19] MEDS: Nicotine 21 MG PATCH TD SCH (09:53)
[2020-12-19] MEDS: Pantoprazole 40 MG GRANULES PACKET PO SCH (09:53)
[2020-12-19] MEDS: predniSONE 20 MG TAB PO SCH (09:54)
--- NOTE | 2020-12-19 10:11 | PRG ---
DATE OF SERVICE: 12/19/2020 SUBJECTIVE: Seems to be doing okay. He is little confused. He is wearing oxygen 3 L nasal cannula. OBJECTIVE: VITAL SIGNS: His temperature is 98.1, pulse 88, respirations 16, O2 saturation 99% on 3 L, blood pressure 153/90. HEENT: Unremarkable. NECK: No JVD. LUNGS: Clear. CARDIAC: S1 and S2. Regular. ABDOMEN: Soft. EXTREMITIES: No edema. ASSESSMENT: Chronic obstructive pulmonary disease with exacerbation. PLAN: He is probably at his baseline and I think ready to go home. He will need home oxygen. Wean his steroids over a week. No further recommendations Job ID: [id number]
--- NOTE | 2020-12-19 15:18 | PDOC.HOSPP ---
- Subjective Encounter Date: 12/19/20 Subjective: more oriented and in no acute distress. - Objective Vital Signs & Weight: Vital Signs (12 hours) Temp Pulse Resp BP BP Pulse Ox 12/19/20 14:20 94 16 94 L 12/19/20 11:04 98.7 F 98 16 149/90 H 91 L 12/19/20 09:18 99 12/19/20 07:12 88 16 93 L 12/19/20 07:11 98.1 F 86 15 153/90 H 99 12/19/20 05:42 98.5 F 84 18 124/64 93 L Weight Admit Weight 218 lb Weight 191 lb 4 oz Most Recent Monitor Data Heart Rate from ECG 105 NIBP 125/82 NIBP BP-Mean 96 Respiration from ECG 14 SpO2 92 I&O: 12/18/20 12/19/20 12/20/20 06:59 06:59 06:59 Intake Total 720 1100 Output Total 520 950 Balance 200 150 Result Diagrams: 12/17/20 03:50 12/17/20 03:50 Additional Labs: Accuchecks 12/19/20 12/19/20 12/18/20 11:08 04:33 20:41 POC Glucose 146 H 159 H 153 H 12/18/20 18:02 POC Glucose 151 H Hospitalist ROS - Medication Medications: Active Medications Generic Name Dose Route Start Last Admin Trade Name Freq PRN Reason Stop Dose Admin Acetaminophen 650 mg 12/04/20 20:50 12/17/20 20:57 Acetaminophen 325 Mg Tab PO 650 mg Q4H PRN Administration Headache/Fever/Mild Pain (1-3) Albuterol/Ipratropium 3 ml 12/17/20 13:00 12/19/20 14:20 Ipratropium/Albuterol Sulfate 3 Ml Neb NEB 3 ml [id number] RUBIA Administration Enoxaparin Sodium 40 mg 12/05/20 09:00 12/19/20 09:53 Enoxaparin Sodium 40 Mg/0.4 Ml Syringe SC 40 mg 0900 RUBIA Administration Nicotine 21 mg 12/06/20 09:00 12/19/20 09:53 Nicotine 21 Mg Patch TD 21 mg DAILY RUBIA Administration Pantoprazole Sodium 40 mg 12/12/20 09:00 12/19/20 09:53 Pantoprazole 40 Mg Granules Packet PO 40 mg DAILY RUBIA Administration Sodium Chloride 10 ml 12/11/20 09:00 12/19/20 09:53 Flush - Normal Saline 10 Ml Syringe IVF 10 ml Q12HR RUBIA Administration Sterile Water 10 ml 12/04/20 22:04 12/05/20 04:43 Sterile Water 10 Ml Vial IVP 10 ml Q30MIN PRN Administration NEEDED FOR RECONSTITUTION Sterile Water 1 ml 12/04/20 22:15 12/06/20 17:33 Bacteriostatic Water 30 Ml Vial FS 1 ml PRN PRN Administration RECONSTITUTION Hospitalist Exam Vitals: Vital Signs (12 hours) Temp Pulse Resp BP BP Pulse Ox 12/19/20 14:20 94 16 94 L 12/19/20 11:04 98.7 F 98 16 149/90 H 91 L 12/19/20 09:18 99 12/19/20 07:12 88 16 93 L 12/19/20 07:11 98.1 F 86 15 153/90 H 99 12/19/20 05:42 98.5 F 84 18 124/64 93 L Weight Admit Weight 218 lb Weight 191 lb 4 oz Most Recent Monitor Data Heart Rate from ECG 105 NIBP 125/82 NIBP BP-Mean 96 Respiration from ECG 14 SpO2 92 General Appearance: NAD Eye: PERRL ENT: normocephalic atraumatic, no oropharyngeal lesions Neck: supple, symmetric, no JVD, no thyromegaly Heart: RRR, no murmur, no gallops Respiratory: CTAB, no wheezes, no rales Gastrointestinal: soft, non-tender, non-distended Extremities: no cyanosis, no clubbing Hosp A/P (1) COPD exacerbation Code(s): J44.1 - CHRONIC OBSTRUCTIVE PULMONARY DISEASE W (ACUTE) EXACERBATION Status: Acute (2) Confusion Code(s): R41.0 - DISORIENTATION, UNSPECIFIED Status: Acute (3) Demand ischemia Code(s): I24.8 - OTHER FORMS OF ACUTE ISCHEMIC HEART DISEASE Status: Acute - Plan plan for today 2/3 He remains confused, we are awaiting the brain MRI to be done. will continue with Nebs and steroids. his glycemic levels are elevated, I suspect that it is from the steroids, I will start insulin ss. plan for today 12/19 he is not confused anymore his lungs are clear and prednisone is being tapered off his BP is elevated so I resumed his Bystolic. consult CM as he need to go to rehab as per PT. stop insulin SS
[2020-12-20] MEDS: Pantoprazole 40 MG GRANULES PACKET PO SCH (08:53)
[2020-12-20] MEDS: Enoxaparin Sodium 40 MG/0.4 ML SYRINGE SC SCH (08:53)
[2020-12-20] MEDS: predniSONE 20 MG TAB PO SCH (08:53)
[2020-12-20] MEDS: Nicotine 21 MG PATCH TD SCH (08:53)
[2020-12-20] MEDS: Nebivolol HCl 5 MG TAB PO SCH (08:53)
--- NOTE | 2020-12-20 19:08 | PDOC.HOSPP ---
- Subjective Subjective: continues to do well - Objective Vital Signs & Weight: Vital Signs (12 hours) Temp Pulse Resp BP BP Pulse Ox Pulse Ox 12/20/20 16:00 98.1 F 73 16 118/71 92 L 12/20/20 11:33 97.8 F 83 15 108/67 95 12/20/20 10:18 92 L 12/20/20 09:03 94 L 12/20/20 07:23 98.0 F 108 H 16 138/77 91 L Pulse Ox 12/20/20 16:00 12/20/20 11:33 12/20/20 10:18 95 12/20/20 09:03 12/20/20 07:23 Weight Admit Weight 218 lb Weight 191 lb 4 oz Most Recent Monitor Data Heart Rate from ECG 105 NIBP 125/82 NIBP BP-Mean 96 Respiration from ECG 14 SpO2 92 I&O: 12/19/20 12/20/20 12/21/20 06:59 06:59 06:59 Intake Total 1100 1400 800 Output Total 950 Balance 150 1400 800 Result Diagrams: 12/17/20 03:50 12/17/20 03:50 Hospitalist ROS - Medication Medications: Active Medications Generic Name Dose Route Start Last Admin Trade Name Freq PRN Reason Stop Dose Admin Acetaminophen 650 mg 12/04/20 20:50 12/17/20 20:57 Acetaminophen 325 Mg Tab PO 650 mg Q4H PRN Administration Headache/Fever/Mild Pain (1-3) Albuterol/Ipratropium 3 ml 12/17/20 13:00 12/20/20 13:43 Ipratropium/Albuterol Sulfate 3 Ml Neb NEB 3 ml [id number] RUBIA Administration Enoxaparin Sodium 40 mg 12/05/20 09:00 12/20/20 08:53 Enoxaparin Sodium 40 Mg/0.4 Ml Syringe SC 40 mg 0900 RUBIA Administration Nebivolol 10 mg 12/20/20 09:00 12/20/20 08:53 Nebivolol Hcl 5 Mg Tab PO 10 mg DAILY RUBIA Administration Nicotine 21 mg 12/06/20 09:00 12/20/20 08:53 Nicotine 21 Mg Patch TD 21 mg DAILY RUBIA Administration Pantoprazole Sodium 40 mg 12/12/20 09:00 12/20/20 08:53 Pantoprazole 40 Mg Granules Packet PO 40 mg DAILY RUBIA Administration Prednisone 20 mg 12/20/20 08:00 12/20/20 08:53 Prednisone 20 Mg Tab PO 20 mg QAM-WM RUBIA Administration Sodium Chloride 10 ml 12/11/20 09:00 12/20/20 08:54 Flush - Normal Saline 10 Ml Syringe IVF 10 ml Q12HR RUBIA Administration Sterile Water 10 ml 12/04/20 22:04 12/05/20 04:43 Sterile Water 10 Ml Vial IVP 10 ml Q30MIN PRN Administration NEEDED FOR RECONSTITUTION Sterile Water 1 ml 12/04/20 22:15 12/06/20 17:33 Bacteriostatic Water 30 Ml Vial FS 1 ml PRN PRN Administration RECONSTITUTION Hospitalist Exam Vitals: Vital Signs (12 hours) Temp Pulse Resp BP BP Pulse Ox Pulse Ox 12/20/20 16:00 98.1 F 73 16 118/71 92 L 12/20/20 11:33 97.8 F 83 15 108/67 95 12/20/20 10:18 92 L 12/20/20 09:03 94 L 12/20/20 07:23 98.0 F 108 H 16 138/77 91 L Pulse Ox 12/20/20 16:00 12/20/20 11:33 12/20/20 10:18 95 12/20/20 09:03 12/20/20 07:23 Weight Admit Weight 218 lb Weight 191 lb 4 oz Most Recent Monitor Data Heart Rate from ECG 105 NIBP 125/82 NIBP BP-Mean 96 Respiration from ECG 14 SpO2 92 General Appearance: NAD Eye: PERRL ENT: normocephalic atraumatic Neck: supple, symmetric Heart: RRR, no murmur Respiratory: rhonchi (slight rhonchi) Gastrointestinal: soft, non-tender Hosp A/P (1) COPD exacerbation Code(s): J44.1 - CHRONIC OBSTRUCTIVE PULMONARY DISEASE W (ACUTE) EXACERBATION Status: Acute (2) Confusion Code(s): R41.0 - DISORIENTATION, UNSPECIFIED Status: Acute (3) Demand ischemia Code(s): I24.8 - OTHER FORMS OF ACUTE ISCHEMIC HEART DISEASE Status: Acute - Plan plan for today 2/3 He remains confused, we are awaiting the brain MRI to be done. will continue with Nebs and steroids. his glycemic levels are elevated, I suspect that it is from the steroids, I will start insulin ss. plan for today 12/19 he is not confused anymore his lungs are clear and prednisone is being tapered off his BP is elevated so I resumed his Bystolic. consult CM as he need to go to rehab as per PT. stop insulin SS plan for today 12/20 He is fully awake and oriented and feels much better. we are awaiting him to be placed otherwise we will continue same management with steroids and nebs.
[2020-12-20] MEDS ORDERED: Simethicone Chewable 80 MG TAB PO PRN (20:15)
[2020-12-21] MEDS: Pantoprazole 40 MG GRANULES PACKET PO SCH (08:55)
[2020-12-21] MEDS: predniSONE 20 MG TAB PO SCH (08:56)
[2020-12-21] MEDS: Nicotine 21 MG PATCH TD SCH (08:57)
[2020-12-21] MEDS: Enoxaparin Sodium 40 MG/0.4 ML SYRINGE SC SCH (08:57)
[2020-12-21] MEDS: Nebivolol HCl 5 MG TAB PO SCH (08:59)
[2020-12-21 11:23] LABS: #Eosinphils 0.1 thou/uL (0.0-0.7); #Lymphocytes 0.7 thou/uL (1.20-3.40); #Monocytes 0.8 thou/uL (0.11-0.59); #Neutrophils 11.6 thou/uL (1.40-6.50); %Basophils 0.1 % (0.0-1.0); %Eosinophils 1.1 % (0.0-10.0); %Lymphocytes 5.3 % (21.0-51.0); %Monocytes 6.2 % (0.0-10.0); %Neutrophils 87.4 % (42.0-75.0); Hemoglobin 12.3 g/dL (14.0-18.0); Mean Corpuscular HGB CONC 33.9 g/dL (32.0-36.0); Mean Corpuscular Volume 91.4 fL (78.0-98.0); Mean Platelet Volume 8.7 fL (7.4-10.4); Platelet Count 172 thou/uL (130-400); RBC Distribution Width 14.9 % (11.5-14.5); Red Blood Cell (RBC) Count 3.96 mill/uL (4.70-6.10); White Blood Cell (WBC) Count 13.3 thou/uL (4.8-10.8)
--- NOTE | 2020-12-21 14:58 | PDOC.HOSPP ---
- Subjective Encounter Date: 12/21/20 Encounter Time: 11:45 Subjective: Patient seen this morning he is sitting in the bed. Family at bedside. He is not confused this morning. He is little frustrated as he needs to wait for the weekend to go to SNF. - Objective Vital Signs & Weight: Vital Signs (12 hours) Temp Pulse Resp BP Pulse Ox 12/21/20 13:46 75 16 97 12/21/20 09:01 98.6 F 90 18 126/85 94 L 12/21/20 08:00 94 L 12/21/20 07:11 98 12/21/20 07:10 87 18 98 12/21/20 07:00 98.6 F 89 20 98/60 90 L Weight Admit Weight 218 lb Weight 200 lb 9.93 oz Most Recent Monitor Data Heart Rate from ECG 105 NIBP 125/82 NIBP BP-Mean 96 Respiration from ECG 14 SpO2 92 I&O: 12/20/20 12/21/20 12/22/20 06:59 06:59 06:59 Intake Total 1400 1200 Balance 1400 1200 Result Diagrams: 12/21/20 11:12 12/17/20 03:50 Additional Labs: Accuchecks 12/21/20 11:31 POC Glucose 170 H Hospitalist ROS - Medication Medications: Active Medications Generic Name Dose Route Start Last Admin Trade Name Jinq PRN Reason Stop Dose Admin Acetaminophen 650 mg 12/04/20 20:50 12/17/20 20:57 Acetaminophen 325 Mg Tab PO 650 mg Q4H PRN Administration Headache/Fever/Mild Pain (1-3) Albuterol/Ipratropium 3 ml 12/17/20 13:00 12/21/20 13:46 Ipratropium/Albuterol Sulfate 3 Ml Neb NEB 3 ml [id number] RUBIA Administration Enoxaparin Sodium 40 mg 12/05/20 09:00 12/21/20 08:57 Enoxaparin Sodium 40 Mg/0.4 Ml Syringe SC 40 mg 0900 RUBIA Administration Nebivolol 10 mg 12/20/20 09:00 12/21/20 08:59 Nebivolol Hcl 5 Mg Tab PO 10 mg DAILY RUBIA Administration Nicotine 21 mg 12/06/20 09:00 12/21/20 08:57 Nicotine 21 Mg Patch TD 21 mg DAILY RUBIA Administration Pantoprazole Sodium 40 mg 12/12/20 09:00 12/21/20 08:55 Pantoprazole 40 Mg Granules Packet PO 40 mg DAILY RUBIA Administration Prednisone 20 mg 12/20/20 08:00 12/21/20 08:56 Prednisone 20 Mg Tab PO 20 mg QAM-WM RUBIA Administration Simethicone 80 mg 12/20/20 20:15 12/20/20 21:33 Simethicone Chewable 80 Mg Tab PO 80 mg PCHS PRN Administration Gas Pain Sodium Chloride 10 ml 12/11/20 09:00 12/21/20 08:57 Flush - Normal Saline 10 Ml Syringe IVF 10 ml Q12HR RUBIA Administration Sterile Water 10 ml 12/04/20 22:04 12/05/20 04:43 Sterile Water 10 Ml Vial IVP 10 ml Q30MIN PRN Administration NEEDED FOR RECONSTITUTION Sterile Water 1 ml 12/04/20 22:15 12/06/20 17:33 Bacteriostatic Water 30 Ml Vial FS 1 ml PRN PRN Administration RECONSTITUTION Hospitalist Exam Vitals: Vital Signs (12 hours) Temp Pulse Resp BP Pulse Ox 12/21/20 13:46 75 16 97 12/21/20 09:01 98.6 F 90 18 126/85 94 L 12/21/20 08:00 94 L 12/21/20 07:11 98 12/21/20 07:10 87 18 98 12/21/20 07:00 98.6 F 89 20 98/60 90 L Weight Admit Weight 218 lb Weight 200 lb 9.93 oz Most Recent Monitor Data Heart Rate from ECG 105 NIBP 125/82 NIBP BP-Mean 96 Respiration from ECG 14 SpO2 92 General Appearance: NAD, awake alert General - other findings: anasa Eye: PERRL ENT: normocephalic atraumatic Neck: supple Heart: RRR, normal peripheral pulses Respiratory: CTAB, normal chest expansion Gastrointestinal: soft, normal bowel sounds Neurological: no focal deficits Psychiatric: A&O x 3 Hosp A/P - Plan COPD exacerbation Code(s): J44.1 - CHRONIC OBSTRUCTIVE PULMONARY DISEASE W (ACUTE) EXACERBATION Status: Acute (2) Confusion Code(s): R41.0 - DISORIENTATION, UNSPECIFIED Status: Acute (3) Demand ischemia Code(s): I24.8 - OTHER FORMS OF ACUTE ISCHEMIC HEART DISEASE Status: Acute - Plan 6th MRI showed ventriculomegaly possible normal pressure hydrocephalus 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
[2020-12-21] MEDS: Doxycycline 100 MG CAP PO SCH (21:14)
[2020-12-22] MEDS: predniSONE 20 MG TAB PO SCH (09:04)
[2020-12-22] MEDS: Nebivolol HCl 5 MG TAB PO SCH (09:04)
[2020-12-22] MEDS: Doxycycline 100 MG CAP PO SCH ×2 (09:04→21:20)
[2020-12-22] MEDS: Pantoprazole 40 MG GRANULES PACKET PO SCH (09:04)
[2020-12-22] MEDS: Nicotine 21 MG PATCH TD SCH (09:05)
[2020-12-22] MEDS: Enoxaparin Sodium 40 MG/0.4 ML SYRINGE SC SCH (09:05)
--- NOTE | 2020-12-22 14:40 | PDOC.HOSPP ---
- Subjective Encounter Date: 12/22/20 Encounter Time: 10:55 Subjective: Patient doing well. He is resting comfortably family at bedside plan for discharge tomorrow to the senior care facility discussed. - Objective Vital Signs & Weight: Vital Signs (12 hours) Temp Pulse Resp BP Pulse Ox 12/22/20 09:18 88 109/65 12/22/20 09:04 93 L 12/22/20 07:00 98.6 F 88 20 99/58 L 93 L Weight Admit Weight 218 lb Weight 188 lb 14.4 oz Most Recent Monitor Data Heart Rate from ECG 105 NIBP 125/82 NIBP BP-Mean 96 Respiration from ECG 14 SpO2 92 I&O: 12/21/20 12/22/20 12/23/20 06:59 06:59 06:59 Intake Total 1200 880 Balance 1200 880 Result Diagrams: 12/21/20 11:12 12/17/20 03:50 Additional Labs: Accuchecks 12/22/20 12/22/20 12/21/20 11:23 05:03 21:19 POC Glucose 160 H 146 H 129 H 12/21/20 16:24 POC Glucose 199 H Hospitalist ROS - Medication Medications: Active Medications Generic Name Dose Route Start Last Admin Trade Name Freq PRN Reason Stop Dose Admin Acetaminophen 650 mg 12/04/20 20:50 12/17/20 20:57 Acetaminophen 325 Mg Tab PO 650 mg Q4H PRN Administration Headache/Fever/Mild Pain (1-3) Albuterol/Ipratropium 3 ml 12/17/20 13:00 12/22/20 12:41 Ipratropium/Albuterol Sulfate 3 Ml Neb NEB 3 ml [id number] RUBIA Administration Doxycycline Hyclate 100 mg 12/21/20 21:00 12/22/20 09:04 Doxycycline 100 Mg Cap PO 100 mg BID RUBIA Administration Enoxaparin Sodium 40 mg 12/05/20 09:00 12/22/20 09:05 Enoxaparin Sodium 40 Mg/0.4 Ml Syringe SC 40 mg 0900 RUBIA Administration Nicotine 21 mg 12/06/20 09:00 12/22/20 09:05 Nicotine 21 Mg Patch TD 21 mg DAILY RUBIA Administration Pantoprazole Sodium 40 mg 12/12/20 09:00 12/22/20 09:04 Pantoprazole 40 Mg Granules Packet PO 40 mg DAILY RUBIA Administration Prednisone 20 mg 12/20/20 08:00 12/22/20 09:04 Prednisone 20 Mg Tab PO 20 mg QAM-WM RUBIA Administration Simethicone 80 mg 12/20/20 20:15 12/20/20 21:33 Simethicone Chewable 80 Mg Tab PO 80 mg PCHS PRN Administration Gas Pain Sodium Chloride 10 ml 12/11/20 09:00 12/22/20 09:05 Flush - Normal Saline 10 Ml Syringe IVF 10 ml Q12HR RUBIA Administration Sterile Water 10 ml 12/04/20 22:04 12/05/20 04:43 Sterile Water 10 Ml Vial IVP 10 ml Q30MIN PRN Administration NEEDED FOR RECONSTITUTION Sterile Water 1 ml 12/04/20 22:15 12/06/20 17:33 Bacteriostatic Water 30 Ml Vial FS 1 ml PRN PRN Administration RECONSTITUTION Hospitalist Exam Vitals: Vital Signs (12 hours) Temp Pulse Resp BP Pulse Ox 12/22/20 09:18 88 109/65 12/22/20 09:04 93 L 12/22/20 07:00 98.6 F 88 20 99/58 L 93 L Weight Admit Weight 218 lb Weight 188 lb 14.4 oz Most Recent Monitor Data Heart Rate from ECG 105 NIBP 125/82 NIBP BP-Mean 96 Respiration from ECG 14 SpO2 92 General Appearance: NAD, awake alert Eye: PERRL ENT: normocephalic atraumatic Neck: supple Heart: RRR, normal peripheral pulses Respiratory: CTAB, normal chest expansion Gastrointestinal: soft, normal bowel sounds Neurological: cranial nerve grossly intact, no focal deficits Psychiatric: normal affect, normal behavior, A&O x 3 Hosp A/P - Plan COPD exacerbation Code(s): J44.1 - CHRONIC OBSTRUCTIVE PULMONARY DISEASE W (ACUTE) EXACERBATION Status: Acute (2) Confusion Code(s): R41.0 - DISORIENTATION, UNSPECIFIED Status: Acute (3) Demand ischemia Code(s): I24.8 - OTHER FORMS OF ACUTE ISCHEMIC HEART DISEASE Status: Acute - Plan MRI showed ventriculomegaly possible normal pressure hydrocephalus 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
[2020-12-23 08:28] LABS: #Eosinphils 0.2 thou/uL (0.0-0.7); #Lymphocytes 1.6 thou/uL (1.20-3.40); #Monocytes 0.5 thou/uL (0.11-0.59); #Neutrophils 6.8 thou/uL (1.40-6.50); %Basophils 0.5 % (0.0-1.0); %Eosinophils 2.1 % (0.0-10.0); %Lymphocytes 17.9 % (21.0-51.0); %Neutrophils 74.5 % (42.0-75.0); Hemoglobin 11.8 g/dL (14.0-18.0); Mean Corpuscular Hemoglobin 29.1 pg (27.0-31.0); Mean Corpuscular Volume 91.1 fL (78.0-98.0); Mean Platelet Volume 8.5 fL (7.4-10.4); Platelet Count 176 thou/uL (130-400); Red Blood Cell (RBC) Count 4.04 mill/uL (4.70-6.10); White Blood Cell (WBC) Count 9.1 thou/uL (4.8-10.8)
[2020-12-23] MEDS: Nicotine 21 MG PATCH TD SCH (08:44)
[2020-12-23] MEDS: Pantoprazole 40 MG GRANULES PACKET PO SCH (08:44)
[2020-12-23] MEDS: predniSONE 20 MG TAB PO SCH (08:44)
[2020-12-23] MEDS: Nebivolol HCl 5 MG TAB PO SCH (08:44)
[2020-12-23] MEDS: Enoxaparin Sodium 40 MG/0.4 ML SYRINGE SC SCH (08:45)
[2020-12-23 08:50] LABS: Anion Gap 14 mmol/L (10-20); BUN (Urea Nitrogen) 17 mg/dL (8.4-25.7); Calc. Creatinine Clearance 105 mL/min (70-130); Calcium 8.4 mg/dL (7.8-10.44); Carbon Dioxide 25 mmol/L (22-29); Chloride 101 mmol/L (98-107); Glucose 153 mg/dL (70-105); Potassium 3.5 mmol/L (3.5-5.1); Sodium 136 mmol/L (136-145)
[2020-12-23] MEDS: Doxycycline 100 MG CAP PO SCH ×2 (08:52→21:12)
--- NOTE | 2020-12-23 14:28 | PDOC.HOSPP ---
- Subjective Encounter Date: 12/23/20 Encounter Time: 10:30 Subjective: Patient and family are quite frustrated why they did not hear anything so far regarding transfer to the nursing facility. Wednesday morning - will take little time for human services case manager to look into possible placement. I explained to the family member. [phone] I also discussed with the human services case manager - Objective Vital Signs & Weight: Vital Signs (12 hours) Temp Pulse Resp BP BP Pulse Ox 12/23/20 08:54 94 L 12/23/20 07:50 98.2 F 81 18 103/61 94 L 12/23/20 06:40 84 14 97 12/23/20 04:20 98 F 77 18 103/51 L 95 Weight Admit Weight 218 lb Weight 191 lb 3.2 oz Most Recent Monitor Data Heart Rate from ECG 105 NIBP 125/82 NIBP BP-Mean 96 Respiration from ECG 14 SpO2 92 I&O: 12/22/20 12/23/20 12/24/20 06:59 06:59 06:59 Intake Total 880 1900 Balance 880 1900 Result Diagrams: 12/23/20 08:10 12/23/20 08:10 Additional Labs: Accuchecks 12/22/20 12/22/20 20:44 16:51 POC Glucose 216 H 182 H Hospitalist ROS - Medication Medications: Active Medications Generic Name Dose Route Start Last Admin Trade Name Freq PRN Reason Stop Dose Admin Acetaminophen 650 mg 12/04/20 20:50 12/17/20 20:57 Acetaminophen 325 Mg Tab PO 650 mg Q4H PRN Administration Headache/Fever/Mild Pain (1-3) Albuterol/Ipratropium 3 ml 12/17/20 13:00 12/23/20 06:40 Ipratropium/Albuterol Sulfate 3 Ml Neb NEB 3 ml [id number] RUBIA Administration Doxycycline Hyclate 100 mg 12/21/20 21:00 12/23/20 08:52 Doxycycline 100 Mg Cap PO 100 mg BID RUBIA Administration Enoxaparin Sodium 40 mg 12/05/20 09:00 12/23/20 08:45 Enoxaparin Sodium 40 Mg/0.4 Ml Syringe SC 40 mg 0900 RUBIA Administration Nebivolol 10 mg 12/23/20 09:00 12/23/20 08:44 Nebivolol Hcl 5 Mg Tab PO 10 mg DAILY RUBIA Administration Nicotine 21 mg 12/06/20 09:00 12/23/20 08:44 Nicotine 21 Mg Patch TD 21 mg DAILY RUBIA Administration Pantoprazole Sodium 40 mg 12/12/20 09:00 12/23/20 08:44 Pantoprazole 40 Mg Granules Packet PO 40 mg DAILY RUBIA Administration Prednisone 20 mg 12/20/20 08:00 12/23/20 08:44 Prednisone 20 Mg Tab PO 20 mg QAM-WM RUBIA Administration Simethicone 80 mg 12/20/20 20:15 12/20/20 21:33 Simethicone Chewable 80 Mg Tab PO 80 mg PCHS PRN Administration Gas Pain Sodium Chloride 10 ml 12/11/20 09:00 12/23/20 08:45 Flush - Normal Saline 10 Ml Syringe IVF 10 ml Q12HR RUBIA Administration Sterile Water 10 ml 12/04/20 22:04 12/05/20 04:43 Sterile Water 10 Ml Vial IVP 10 ml Q30MIN PRN Administration NEEDED FOR RECONSTITUTION Sterile Water 1 ml 12/04/20 22:15 12/06/20 17:33 Bacteriostatic Water 30 Ml Vial FS 1 ml PRN PRN Administration RECONSTITUTION Hospitalist Exam Vitals: Vital Signs (12 hours) Temp Pulse Resp BP BP Pulse Ox 12/23/20 08:54 94 L 12/23/20 07:50 98.2 F 81 18 103/61 94 L 12/23/20 06:40 84 14 97 12/23/20 04:20 98 F 77 18 103/51 L 95 Weight Admit Weight 218 lb Weight 191 lb 3.2 oz Most Recent Monitor Data Heart Rate from ECG 105 NIBP 125/82 NIBP BP-Mean 96 Respiration from ECG 14 SpO2 92 General Appearance: NAD, awake alert Eye: PERRL ENT: normocephalic atraumatic Neck: supple Heart: RRR Respiratory: CTAB, normal chest expansion Gastrointestinal: soft, normal bowel sounds Neurological: cranial nerve grossly intact, no focal deficits Psychiatric: normal affect, normal behavior, A&O x 3 Hosp A/P - Plan COPD exacerbation Code(s): J44.1 - CHRONIC OBSTRUCTIVE PULMONARY DISEASE W (ACUTE) EXACERBATION Status: Acute (2) Confusion Code(s): R41.0 - DISORIENTATION, UNSPECIFIED Status: Acute (3) Demand ischemia Code(s): I24.8 - OTHER FORMS OF ACUTE ISCHEMIC HEART DISEASE Status: Acute - Plan MRI showed ventriculomegaly possible normal pressure hydrocephalus 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 Wednesday morning - will take little time for human services case manager to look into possible placement. I explained to the family member. [phone] I also discussed with the human services case manager
[2020-12-24] MEDS: Doxycycline 100 MG CAP PO SCH (08:54)
[2020-12-24] MEDS: predniSONE 20 MG TAB PO SCH (08:54)
[2020-12-24] MEDS: Enoxaparin Sodium 40 MG/0.4 ML SYRINGE SC SCH (08:54)
[2020-12-24] MEDS: Nicotine 21 MG PATCH TD SCH (08:54)
[2020-12-24] MEDS: Nebivolol HCl 5 MG TAB PO SCH (08:55)
[2020-12-24 11:10] VITALS: BMI 29.2
[2020-12-24 12:46] VITALS: BP 111/65; TEMP 97.7
--- NOTE | 2020-12-24 14:34 | PDOC.DS.DS ---
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 Family at bedside I talk to the daughter at length over the phone. physical therapy prescription given. With patient's insurance he is not eligible to go for any local rehab here. Patient lives in the [facility]. Discharge time over 30 minutes. Resuscitation Status: 12/04/20 20:50 Resuscitation Status Routine Resuscitation Status: FULL: Full Resuscitation Lab Results: 12/23/20 08:10 12/23/20 08:10 Abnormal Lab Results - Last 48 hrs 12/23/20 08:10: RBC 4.04 L, Hgb 11.8 L, Hct 36.8 L, RDW 15.0 H, Lymphocytes % 17.9 L, Neutrophils # 6.8 H Vitals: Vital Signs (12 hours) Temp Pulse Resp BP BP Pulse Ox 12/24/20 12:45 97.7 F 80 18 111/65 94 L 12/24/20 08:00 93 L 12/24/20 07:14 76 18 97 12/24/20 07:08 98.6 F 79 20 109/64 95 12/24/20 05:18 98.2 F 79 18 104/65 99 Weight Admit Weight 218 lb Weight 192 lb 8 oz Most Recent Monitor Data Heart Rate from ECG 105 NIBP 125/82 NIBP BP-Mean 96 Respiration from ECG 14 SpO2 92 Physical Exam: The patient was seen and examined on the day of discharge. Family at bedside did talk to the daughter at length over the phone. Patient physical therapy prescription given. With patient's insurance he is not eligible to go for any local rehab here. Patient lives in the [facility]. Plan Prescriptions: predniSONE 20 mg PO QAM-WM 5 Days #5 tab Doxycycline [Vibramycin] 100 mg PO BID 5 Days #10 cap Home Medications: Medication Instructions Recorded Confirmed Type Fluticasone/Umeclidin/Vilanter 1 each IH DAILY 12/05/20 12/05/20 History [Trelegy Ellipta 100-62.5-25] Furosemide [Lasix] 40 mg PO DAILY 12/05/20 12/05/20 History Nebivolol HCl [Bystolic] 10 mg PO DAILY 12/05/20 12/05/20 History Potassium Chloride [K-Dur] 20 meq PO DAILY 12/05/20 12/05/20 History Doxycycline [Vibramycin] 100 mg PO BID 5 Days #10 cap 12/24/20 Rx predniSONE 20 mg PO QAM-WM 5 Days #5 tab 12/24/20 Rx Allergies: No Allergy Information Available Allergy (Verified 12/05/20 11:12) Discharge Instructions:: FOLLOW UP WITH PCP 7 DAYS ACTIVITY TOLERATED Activity:: Activity as Tolerated Nourishment:: Regular Diet Referrals: [facility],OUT OF [Primary Care Provider] - Disposition: HOME Quality CORE MEASURES:: N/A
--- NOTE | 2020-12-26 06:09 | PQF ---
CLINICAL DOCUMENTATION CLARIFICATION FORM: Dear : Ofelia Hughes Date / Time: 12/26/20 06:08 Please exercise your independent, professional judgment in responding to the clarification form. Clinical indicators are provided on the bottom of this form for your review Based on the clinical indicators on admit, can you determine if COVID19 Pneumonia was present at the time of admission or developed after admission? Diagnosis: COVID19 Pneumonia Present on Admission (POA): [ X ] Yes [ ] No [ ] Unable to determine Physician Signature: Date/Time: For continuity of documentation, please document condition throughout progress notes and discharge summary. Thank You. To be completed by CDI/Coding staff for physician review: Present Clinical Indicators - Signs / Symptoms / Labs Results and Location in Medical Record [x] COVID Pneumonia with respiratory failure PN 12/12 [x] Chest Xray: worsening air space opacity of the right lower lobe Chest Xray 12/04 [x] CC: Shortness of breath HP 12/04 [x] Acute hypoxic respiratory failure in the setting of COPD/PNA HP 12/04 [x] Lungs: tight end expiratory wheezing Consult 12/05 [x] WBC: 12/04=16.6 01/06=20.5 12/15=21.9 12/21=13.3 Laboratory 12/04 Present Risk Factors Results and Location in Medical Record [x] COPD HP 12/04 [x] CHF HP 12/04 [x] Smoker HP 12/04 [x] Sepsis HP 12/04 [x] Obesity PN 12/10 Present Treatments Results and Location in Medical Record [x] Mechanical ventilation HP 12/04 [x] Rocephin 1gm IV JAN 13 [x] Azithromycin 500mg IV JAN 13 [x] IVF JAN 13 [x] Vancomycin 1.5gm IV JAN 13 [x] Pulmonology Consult Consult 12/05 CDS/Smearer Signature:Marcy Downeybelinda Puckett Phone #: ext [phone] Date/Time:12/26/20 This is a permanent part of the Medical Record [facility]
--- NOTE | 2020-12-29 22:10 | PQF ---
CLINICAL DOCUMENTATION CLARIFICATION FORM: Dear : Ofelia Hughes Date / Time: 12/29/20 22:10 Please exercise your independent, professional judgment in responding to the clarification form. Clinical indicators are provided on the bottom of this form for your review Please check appropriate box(es): [ ] Sepsis due to Covid 19 infection [ ] Sepsis not due to Covid 19 infection [ ] Other diagnosis, please specify [ x] Unable to determine Physician Signature: Date/Time: For continuity of documentation, please document condition throughout progress notes and discharge summary. Thank You. To be completed by CDI/Coding staff for physician review: Present Clinical Indicators - Signs / Symptoms / Labs Results and Location in Medical Record [x] Sepsis HP 12/04 [x] COVID Pneumonia with respiratory failure PN 12/12 [x] Chest Xray: worsening air space opacity of the right lower lobe Chest Xray 12/04 [x] CC: Shortness of breath HP 12/04 [x] Acute hypoxic respiratory failure in the setting of COPD/PNA HP 12/04 [x] Lungs: tight end expiratory wheezing Consult 12/05 [x] WBC: 12/04=16.6 01/06=20.5 12/15=21.9 12/21=13.3 Laboratory 12/04 Present Risk Factors Results and Location in Medical Record [x] COPD HP 12/04 [x] CHF HP 12/04 [x] Smoker HP 12/04 [x] Obesity PN 12/10 Present Treatments Results and Location in Medical Record [x] Mechanical ventilation HP 12/04 [x] Rocephin 1gm IV JAN 13 [x] Azithromycin 500mg IV JAN 13 [x] IVF JAN 13 [x] Vancomycin 1.5gm IV JAN 13 [x] Pulmonology Consult Consult 12/05 CDS/Microwave Technician Signature: Marcy Dayna Puckett Phone #: [phone] Date/Time: 12/29/20 This is a permanent part of the Medical Record [facility]
== END 2020-12-24 13:44 | disposition home or self-care (01) | DRG 870 ==
LOC: ERS 18:41 → CCU 20:30 → 2NO 12-16 20:07 → T4-A 12-18 19:37
PROVIDERS: ADMIT Student in an Organized Health Care Education/Training Program; ATTEND Internal Medicine
PROC: 5A1955Z Respiratory Ventilation, Greater than 96 Consecutive Hours (ICD-10-PCS; principal; 2020-12-04)
DX: A41.9 Sepsis, unspecified organism (principal); R40.20 Unspecified coma; J96.01 Acute respiratory failure with hypoxia; I21.A1 Myocardial infarction type 2; J96.02 Acute respiratory failure with hypercapnia; U07.1 COVID-19; J12.82 Pneumonia due to coronavirus disease 2019; J44.0 Chronic obstructive pulmonary disease with (acute) lower respiratory infection; J44.1 Chronic obstructive pulmonary disease with (acute) exacerbation; I50.32 Chronic diastolic (congestive) heart failure; E87.4 Mixed disorder of acid-base balance; G93.40 Encephalopathy, unspecified; G91.2 (Idiopathic) normal pressure hydrocephalus; I11.0 Hypertensive heart disease with heart failure; F17.210 Nicotine dependence, cigarettes, uncomplicated; E66.9 Obesity, unspecified; Z68.29 Body mass index [BMI] 29.0-29.9, adult
CPT/HCPCS: 36415; 36416; 36600; 70450; 70551; 71045; 80048; 80202; 82553; 82805; 83605; 83880; 84484; 85025; 93005; 93306; 94002; 94003; 94640; 94644; 95712; 95819; 95957; 96365; 96366; 99292; C9113; J0360; J0456; J0696; J1650; J1815; J1940; J2001; J2060; J2270; J2543; J2704; J2920; J3010; J3370; J3486; J3490; J7030; J7050; J7512; J7611; J7620

== ENCOUNTER 2022-11-22 07:42 | Inpatient (IN) | payer MEDICARE ==
[2022-11-22] MEDS ORDERED: Magnesium 2 GM/50 ML BAG (IN WATER) ONE (07:53)
[2022-11-22] MEDS ORDERED: Iopamidol-370 76% 500 ML 1 ML ONE (08:47)
[2022-11-22] MEDS ORDERED: Acetaminophen 325 MG TAB PO PRN (09:00)
[2022-11-22] MEDS ORDERED: Ondansetron ODT 4 MG TAB PO PRN (09:00)
[2022-11-22] MEDS ORDERED: Acetaminophen 650 MG Suppository PR PRN (09:00)
[2022-11-22] MEDS ORDERED: Ondansetron PF 4 MG/2 ML Vial IVP PRN (09:00)
[2022-11-22 09:34] LABS: CKMB 2.6 ng/mL (0-6.6)
[2022-11-22] MEDS ORDERED: Albuterol 200 PUFF (6.7GM INHALER) INH PRN (10:48)
[2022-11-22] MEDS ORDERED: cefTRIAXone\\ROCEPHIN 1 GM VIAL ONE (10:53)
[2022-11-22] MEDS ORDERED: Albuterol 200 PUFF (6.7GM INHALER) ONE ×2 (10:53→11:17)
[2022-11-22] MEDS ORDERED: cefTRIAXone\\ROCEPHIN 1 GM in Sodium Chloride 0.9% 100 ML IVPB SCH (11:00)
[2022-11-22] MEDS ORDERED: Albuterol 200 PUFF (6.7GM INHALER) INH SCH (11:00)
[2022-11-22] MEDS ORDERED: REMDESIVIR 200 MG in Sodium Chloride 0.9% 250 ML 210 ML IV SCH (11:15)
[2022-11-22 11:28] LABS: #Lymphocytes 0.3 thou/uL (1.20-3.40); #Monocytes 0.2 thou/uL (0.11-0.59); #Neutrophils 13.3 thou/uL (1.40-6.50); %Eosinophils 0.1 % (0.0-10.0); %Lymphocytes 2.3 % (21.0-51.0); %Monocytes 1.3 % (0.0-10.0); %Neutrophils 96.4 % (42.0-75.0); Hemoglobin 13.1 g/dL (14.0-18.0); Mean Corpuscular HGB CONC 35.6 g/dL (32.0-36.0); Mean Corpuscular Hemoglobin 32.8 pg (27.0-31.0); Mean Corpuscular Volume 92.1 fl (78.0-98.0); Mean Platelet Volume 7.7 fL (7.4-10.4); Platelet Count 223 10x3/uL (130-400); RBC Distribution Width 13.1 % (11.5-14.5); Red Blood Cell (RBC) Count 3.98 mill/uL (4.70-6.10); White Blood Cell (WBC) Count 13.8 10x3/uL (4.8-10.8)
[2022-11-22 11:33] LABS: Actual Bicarbonate (HCO3a) 25.2 mEq/L (22-28); Analyzer IN Cardio ER; Base Excess (BEa) -2.5 mEq/L (-2.0 to +3.0); O2 Tension (PaO2), arterial 74.9 mmHg (80.0-100.0); Potassium - ABG Lab 4.25 mmol/L (3.70-5.30); pH, Arterial 7.27 (7.35-7.45)
[2022-11-22] MEDS ORDERED: methylPREDNISolone Sod Succ 40 MG VIAL ONE ×2 (11:36→17:32)
[2022-11-22] MEDS ORDERED: Azithromycin 500 MG VIAL ONE (11:36)
[2022-11-22 11:38] LABS: Puncture Site LRA
[2022-11-22] MEDS: methylPREDNISolone Sod Succ 40 MG VIAL IVP SCH ×2 (11:44→17:45)
[2022-11-22 11:53] LABS: ALT (SGPT) 26 U/L (8-55); AST (SGOT) 21 U/L (5-34); Alkaline Phosphatase 138 U/L (40-110); Anion Gap 11 mmol/L (10-20); BUN (Urea Nitrogen) 16 mg/dL (8.4-25.7); Bilirubin, Total 0.7 mg/dL (0.2-1.2); Calc. Creatinine Clearance 111 mL/min (70-130); Calcium 8.8 mg/dL (7.8-10.44); Carbon Dioxide 30 mmol/L (22-29); Chloride 103 mmol/L (98-107); Estimated GFR 101; Globulin 3.1 g/dL (2.4-3.5); Glucose 160 mg/dL (70-105); Potassium 4.7 mmol/L (3.5-5.1); Protein, Total 7.1 g/dL (6.0-8.3); Sodium 139 mmol/L (136-145)
[2022-11-22 11:54] LABS: Troponin I 0.082 ng/mL (< 0.028)
[2022-11-22] MEDS ORDERED: Azithromycin 500 MG in Sodium Chloride 0.9% 250 ML 250 ML IVPB SCH (12:00)
[2022-11-22] MEDS: Albuterol 200 PUFF (6.7GM INHALER) INH SCH ×2 (14:15→22:30)
[2022-11-22 15:35] LABS: Troponin I 0.106 ng/mL (< 0.028)
[2022-11-23] MEDS: methylPREDNISolone Sod Succ 40 MG VIAL IVP SCH ×5 (00:30→23:26)
[2022-11-23] MEDS ORDERED: methylPREDNISolone Sod Succ 40 MG VIAL ONE ×3 (02:34→08:46)
[2022-11-23] MEDS: Albuterol 200 PUFF (6.7GM INHALER) INH SCH ×5 (03:20→18:19)
[2022-11-23 08:15] LABS: #Lymphocytes 0.6 thou/uL (1.20-3.40); #Monocytes 0.6 thou/uL (0.11-0.59); #Neutrophils 14.2 thou/uL (1.40-6.50); %Lymphocytes 3.5 % (21.0-51.0); %Monocytes 3.9 % (0.0-10.0); %Neutrophils 92.5 % (42.0-75.0); Hemoglobin 12.1 g/dL (14.0-18.0); Mean Corpuscular HGB CONC 32.2 g/dL (32.0-36.0); Mean Corpuscular Volume 93.4 fl (78.0-98.0); Mean Platelet Volume 8.1 fL (7.4-10.4); Platelet Count 253 10x3/uL (130-400); RBC Distribution Width 13.2 % (11.5-14.5); Red Blood Cell (RBC) Count 4.04 mill/uL (4.70-6.10); White Blood Cell (WBC) Count 15.4 10x3/uL (4.8-10.8)
[2022-11-23 08:30] LABS: Anion Gap 10 mmol/L (10-20); BUN (Urea Nitrogen) 16 mg/dL (8.4-25.7); Calc. Creatinine Clearance 115 mL/min (70-130); Calcium 9.1 mg/dL (7.8-10.44); Carbon Dioxide 29 mmol/L (22-29); Chloride 104 mmol/L (98-107); Estimated GFR 102; Glucose 195 mg/dL (70-105); Potassium 4.2 mmol/L (3.5-5.1); Sodium 139 mmol/L (136-145)
[2022-11-23] MEDS: REMDESIVIR 100 MG in Sodium Chloride 0.9% 250 ML 230 ML IV SCH (10:00)
[2022-11-23] MEDS: cefTRIAXone\\ROCEPHIN 1 GM in Sodium Chloride 0.9% 100 ML IVPB SCH (17:24)
[2022-11-23] MEDS: Azithromycin 500 MG in Sodium Chloride 0.9% 250 ML 250 ML IVPB SCH (19:12)
[2022-11-23 20:27] VITALS: BMI 28.9
[2022-11-24] MEDS: methylPREDNISolone Sod Succ 40 MG VIAL IVP SCH ×4 (05:05→22:25)
[2022-11-24 05:36] LABS: #Lymphocytes 0.6 thou/uL (1.20-3.40); #Monocytes 0.5 thou/uL (0.11-0.59); #Neutrophils 14.8 thou/uL (1.40-6.50); %Eosinophils 0.1 % (0.0-10.0); %Lymphocytes 3.5 % (21.0-51.0); %Monocytes 3.3 % (0.0-10.0); %Neutrophils 93.1 % (42.0-75.0); Hemoglobin 11.9 g/dL (14.0-18.0); Mean Corpuscular HGB CONC 31.4 g/dL (32.0-36.0); Mean Corpuscular Hemoglobin 29.3 pg (27.0-31.0); Mean Corpuscular Volume 93.1 fl (78.0-98.0); Mean Platelet Volume 8.7 fL (7.4-10.4); Platelet Count 271 10x3/uL (130-400); RBC Distribution Width 13.2 % (11.5-14.5); Red Blood Cell (RBC) Count 4.08 mill/uL (4.70-6.10); White Blood Cell (WBC) Count 15.9 10x3/uL (4.8-10.8)
[2022-11-24 05:49] LABS: Anion Gap 8 mmol/L (10-20); BUN (Urea Nitrogen) 26 mg/dL (8.4-25.7); Calc. Creatinine Clearance 131 mL/min (70-130); Calcium 9.1 mg/dL (7.8-10.44); Carbon Dioxide 32 mmol/L (22-29); Chloride 103 mmol/L (98-107); Estimated GFR 106; Glucose 172 mg/dL (70-105); Potassium 4.3 mmol/L (3.5-5.1); Sodium 139 mmol/L (136-145)
[2022-11-24] MEDS: Albuterol 200 PUFF (6.7GM INHALER) INH SCH ×5 (07:59→17:58)
[2022-11-24] MEDS: REMDESIVIR 100 MG in Sodium Chloride 0.9% 250 ML 230 ML IV SCH (09:08)
[2022-11-24 15:04] LABS: Amphetamine Detected (NotDetected); Barbiturates Screen Not Detected (NotDetected); Benzodiazepine Screen Not Detected (NotDetected); Cocaine Metabolite Screen Not Detected (NotDetected); Methadone Not Detected (NotDetected); Methamphetamine Detected (NotDetected); Opiate Screen Not Detected (NotDetected); Oxycodone Screen Not Detected (NotDetected); Phencyclidine (PCP) Not Detected (NotDetected); THC/Cannabinoid Screen Not Detected (NotDetected); Tricyclic Screen Not Detected (NotDetected)
[2022-11-24] MEDS: cefTRIAXone\\ROCEPHIN 1 GM in Sodium Chloride 0.9% 100 ML IVPB SCH (16:18)
[2022-11-24] MEDS: Azithromycin 500 MG in Sodium Chloride 0.9% 250 ML 250 ML IVPB SCH (17:55)
[2022-11-25] MEDS: Albuterol 200 PUFF (6.7GM INHALER) INH SCH ×7 (00:08→22:58)
[2022-11-25 05:32] LABS: #Lymphocytes 0.5 thou/uL (1.20-3.40); #Monocytes 0.4 thou/uL (0.11-0.59); #Neutrophils 11.1 thou/uL (1.40-6.50); %Eosinophils 0.1 % (0.0-10.0); %Lymphocytes 4.1 % (21.0-51.0); %Monocytes 3.6 % (0.0-10.0); %Neutrophils 92.2 % (42.0-75.0); Hemoglobin 12.3 g/dL (14.0-18.0); Mean Corpuscular HGB CONC 31.9 g/dL (32.0-36.0); Mean Corpuscular Hemoglobin 30.1 pg (27.0-31.0); Mean Corpuscular Volume 94.5 fl (78.0-98.0); Mean Platelet Volume 8.3 fL (7.4-10.4); Platelet Count 258 10x3/uL (130-400); RBC Distribution Width 13.2 % (11.5-14.5); Red Blood Cell (RBC) Count 4.09 mill/uL (4.70-6.10); White Blood Cell (WBC) Count 12.1 10x3/uL (4.8-10.8)
[2022-11-25] MEDS: methylPREDNISolone Sod Succ 40 MG VIAL IVP SCH ×3 (05:44→16:18)
[2022-11-25 05:56] LABS: Anion Gap 8 mmol/L (10-20); BUN (Urea Nitrogen) 27 mg/dL (8.4-25.7); Calc. Creatinine Clearance 120 mL/min (70-130); Calcium 8.6 mg/dL (7.8-10.44); Carbon Dioxide 30 mmol/L (22-29); Chloride 105 mmol/L (98-107); Estimated GFR 104; Glucose 196 mg/dL (70-105); Potassium 4.1 mmol/L (3.5-5.1); Sodium 139 mmol/L (136-145)
[2022-11-25] MEDS: REMDESIVIR 100 MG in Sodium Chloride 0.9% 250 ML 230 ML IV SCH (08:51)
[2022-11-25] MEDS: cefTRIAXone\\ROCEPHIN 1 GM in Sodium Chloride 0.9% 100 ML IVPB SCH (16:18)
[2022-11-26] MEDS: Albuterol 200 PUFF (6.7GM INHALER) INH SCH ×6 (04:57→22:00)
[2022-11-26 06:39] LABS: #Lymphocytes 0.7 thou/uL (1.20-3.40); #Monocytes 0.9 thou/uL (0.11-0.59); #Neutrophils 10.7 thou/uL (1.40-6.50); %Eosinophils 0.2 % (0.0-10.0); %Lymphocytes 5.3 % (21.0-51.0); %Neutrophils 87.6 % (42.0-75.0); Mean Corpuscular HGB CONC 32.5 g/dL (32.0-36.0); Mean Corpuscular Hemoglobin 30.3 pg (27.0-31.0); Mean Corpuscular Volume 93.2 fl (78.0-98.0); Mean Platelet Volume 8.5 fL (7.4-10.4); Platelet Count 273 10x3/uL (130-400); RBC Distribution Width 13.4 % (11.5-14.5); Red Blood Cell (RBC) Count 4.28 mill/uL (4.70-6.10); White Blood Cell (WBC) Count 12.2 10x3/uL (4.8-10.8)
[2022-11-26 06:58] LABS: Anion Gap 7 mmol/L (10-20); BUN (Urea Nitrogen) 27 mg/dL (8.4-25.7); Calc. Creatinine Clearance 114 mL/min (70-130); Calcium 8.9 mg/dL (7.8-10.44); Carbon Dioxide 32 mmol/L (22-29); Chloride 105 mmol/L (98-107); Estimated GFR 102; Glucose 238 mg/dL (70-105); Potassium 4.3 mmol/L (3.5-5.1); Sodium 140 mmol/L (136-145)
[2022-11-26] MEDS ORDERED: Dextrose 5% in Water 1,000 ML IV PRN (08:53)
[2022-11-26] MEDS ORDERED: Dextrose 50% Abboject 50 ML SYRINGE SLOW IVP PRN (08:53)
[2022-11-26] MEDS: REMDESIVIR 100 MG in Sodium Chloride 0.9% 250 ML 230 ML IV SCH (08:56)
[2022-11-26] MEDS: Azithromycin 250 MG TAB PO SCH (08:57)
[2022-11-26] MEDS: predniSONE 20 MG TAB PO SCH (08:57)
[2022-11-26] MEDS: HumaLOG 300 UNITS/3 ML VIAL SC PRN ×3 (11:51→21:53)
[2022-11-26] MEDS ORDERED: Ipratropium/Albuterol 3 ML NEB NEB SCH (13:00)
[2022-11-26] MEDS: metFORMIN 500 MG TAB PO SCH (17:55)
[2022-11-26] MEDS: Mometasone 100 MCG/PUFF (1 INHALER) INH SCH (17:56)
[2022-11-27] MEDS: Albuterol 200 PUFF (6.7GM INHALER) INH SCH ×6 (05:03→22:42)
[2022-11-27 05:18] LABS: %Lymphocytes 13.4 % (21.0-51.0); %Monocytes 8.5 % (0.0-10.0); %Neutrophils 77.3 % (42.0-75.0); Hemoglobin 12.5 g/dL (14.0-18.0); Mean Corpuscular HGB CONC 32.3 g/dL (32.0-36.0); Mean Platelet Volume 8.3 fL (7.4-10.4); Platelet Count 218 10x3/uL (130-400); RBC Distribution Width 13.4 % (11.5-14.5); Red Blood Cell (RBC) Count 4.16 mill/uL (4.70-6.10); White Blood Cell (WBC) Count 10.2 10x3/uL (4.8-10.8)
[2022-11-27 05:19] LABS: #Eosinphils 0.1 thou/uL (0.0-0.7); #Lymphocytes 1.4 thou/uL (1.20-3.40); #Monocytes 0.9 thou/uL (0.11-0.59); #Neutrophils 7.9 thou/uL (1.40-6.50); %Basophils 0.1 % (0.0-1.0); %Eosinophils 0.7 % (0.0-10.0)
[2022-11-27 05:24] LABS: Hemoglobin A1c 5.9 % (4.0-6.0)
[2022-11-27 05:41] LABS: Anion Gap 10 mmol/L (10-20); BUN (Urea Nitrogen) 26 mg/dL (8.4-25.7); Calc. Creatinine Clearance 122 mL/min (70-130); Calcium 8.6 mg/dL (7.8-10.44); Carbon Dioxide 31 mmol/L (22-29); Chloride 104 mmol/L (98-107); Estimated GFR 104; Glucose 134 mg/dL (70-105); Potassium 3.9 mmol/L (3.5-5.1); Sodium 141 mmol/L (136-145)
[2022-11-27] MEDS ORDERED: Glimepiride 2 MG TAB PO SCH (08:00)
[2022-11-27] MEDS: Mometasone 100 MCG/PUFF (1 INHALER) INH SCH ×2 (08:08→17:50)
[2022-11-27] MEDS: Azithromycin 250 MG TAB PO SCH (08:56)
[2022-11-27] MEDS: predniSONE 20 MG TAB PO SCH (08:56)
[2022-11-27] MEDS: metFORMIN 500 MG TAB PO SCH ×2 (08:56→17:07)
[2022-11-27] MEDS ORDERED: FLU VACC QS2022-23(6MOS UP)/PF 60 MCG/0.5 ML SYRINGE IM ONE (09:00)
[2022-11-27] MEDS ORDERED: HumaLOG 300 UNITS/3 ML VIAL SC PRN (20:41)
[2022-11-28] MEDS: Albuterol 200 PUFF (6.7GM INHALER) INH SCH ×4 (04:19→13:47)
[2022-11-28 05:33] LABS: Hemoglobin 13.3 g/dL (14.0-18.0); Mean Corpuscular HGB CONC 32.9 g/dL (32.0-36.0); Mean Corpuscular Hemoglobin 30.1 pg (27.0-31.0); Mean Corpuscular Volume 91.5 fl (78.0-98.0); Mean Platelet Volume 8.4 fL (7.4-10.4); Platelet Count 221 10x3/uL (130-400); RBC Distribution Width 13.4 % (11.5-14.5)
[2022-11-28] MEDS: Mometasone 100 MCG/PUFF (1 INHALER) INH SCH (05:47)
[2022-11-28 05:52] LABS: Anion Gap 9 mmol/L (10-20); BUN (Urea Nitrogen) 23 mg/dL (8.4-25.7); Calc. Creatinine Clearance 124 mL/min (70-130); Calcium 8.5 mg/dL (7.8-10.44); Carbon Dioxide 31 mmol/L (22-29); Chloride 101 mmol/L (98-107); Estimated GFR 105; Glucose 147 mg/dL (70-105); Potassium 4.2 mmol/L (3.5-5.1); Sodium 137 mmol/L (136-145)
[2022-11-28 05:56] LABS: Lymphocytes 7 % (21-51); MDiff Complete? YES; Metamyelocyte 2 % (0-0); Monocytes 12 % (0-10); Myelocyte 3 % (0-0); Neutrophil 76 % (42-75)
[2022-11-28 07:34] VITALS: TEMP 98.1
[2022-11-28] MEDS: metFORMIN 500 MG TAB PO SCH ×2 (09:19→17:55)
[2022-11-28] MEDS: predniSONE 20 MG TAB PO SCH (09:20)
[2022-11-28] MEDS: Azithromycin 250 MG TAB PO SCH (09:20)
[2022-11-28 11:17] VITALS: BP 156/70
== END 2022-11-28 17:45 | disposition home or self-care (01) | DRG 177 ==
LOC: ERS 07:42 → ERHOLD 08:53 → OBSVTOIN 08:53 → NEURO 11-23 13:05
PROVIDERS: ADMIT Internal Medicine; ATTEND Internal Medicine
PROC: XW033E5 Introduction of Remdesivir Anti-infective into Peripheral Vein, Percutaneous Approach, New Technology Group 5 (ICD-10-PCS; principal; 2022-11-22)
PROC: 8E0ZXY6 Isolation (ICD-10-PCS; 2022-11-22)
DX: U07.1 COVID-19 (principal); A41.89 Other specified sepsis; G93.41 Metabolic encephalopathy; J12.82 Pneumonia due to coronavirus disease 2019; J96.01 Acute respiratory failure with hypoxia; J96.02 Acute respiratory failure with hypercapnia; J44.0 Chronic obstructive pulmonary disease with (acute) lower respiratory infection; I50.32 Chronic diastolic (congestive) heart failure; J44.1 Chronic obstructive pulmonary disease with (acute) exacerbation; R91.8 Other nonspecific abnormal finding of lung field; R73.03 Prediabetes; E78.5 Hyperlipidemia, unspecified; I11.0 Hypertensive heart disease with heart failure; Z79.899 Other long term (current) drug therapy; Z79.51 Long term (current) use of inhaled steroids; Z79.890 Hormone replacement therapy; Z79.52 Long term (current) use of systemic steroids
CPT/HCPCS: 36415; 36416; 36600; 71275; 80048; 80306; 82553; 82805; 83036; 85025; 86140; 87070; 87205; 93005; 94660; 96361; 96374; J0248; J0456; J0696; J1650; J1815; J2920; J3475; J3490; J7050; J7512; Q9967

== ENCOUNTER 2024-03-21 08:08 | Day surgery (SDC) | payer MEDICARE ==
[2024-03-21 08:47] LABS: #Basophils 0.04 10x3/uL (0.0-0.2); %Basophils 0.4 % (0.0-1.0); %Eosinophils 1.3 % (0.0-10.0); %Lymphocytes 11.4 % (21.0-51.0); %Monocytes 7.6 % (0.0-10.0); %Neutrophils 78.6 % (42.0-75.0); Hematocrit 41.6 % (42.0-52.0); Hemoglobin 13.5 g/dL (14.0-18.0); Mean Corpuscular HGB CONC 32.5 g/dL (32.0-36.0); Mean Corpuscular Volume 89.5 fL (78.0-98.0); Mean Platelet Volume 9.9 fL (7.4-10.4); Platelet Count 312 10x3/uL (130-400); RBC Distribution Width 13.7 % (11.5-14.5); Red Blood Cell (RBC) Count 4.65 mill/uL (4.70-6.10)
[2024-03-21 08:56] LABS: PTT 35.2 sec (22.9-36.1); Prothrombin Time 13.4 sec (12.0-14.7)
[2024-03-21] MEDS: Ipratropium/Albuterol 3 ML NEB NEB SCH (10:20)
[2024-03-21] MEDS ORDERED: Benzonatate 100 MG CAP ONE (10:24)
[2024-03-21] MEDS ORDERED: Lidocaine 1% w/Epinephrine 1:100K 20 ML VIAL ONE (10:31)
[2024-03-21] MEDS ORDERED: fentaNYL 50 mcg/mL 1 mL Vial ONE ×2 (10:31→10:32)
[2024-03-21] MEDS ORDERED: Sodium Bicarbonate 2.5 MEQ/5 ML SDV ONE (10:31)
[2024-03-21] MEDS ORDERED: Midazolam HCl 2 mg/2 ml Vial ONE (10:32)
== END 2024-03-21 14:30 | disposition home or self-care (01) ==
LOC: CT 08:08
PROVIDERS: ATTEND Internal Medicine
PROC: 0BBC3ZX Excision of Right Upper Lung Lobe, Percutaneous Approach, Diagnostic (ICD-10-PCS; principal; 2024-03-21)
DX: C34.11 Malignant neoplasm of upper lobe, right bronchus or lung (principal); R91.8 Other nonspecific abnormal finding of lung field; J44.9 Chronic obstructive pulmonary disease, unspecified; Z87.891 Personal history of nicotine dependence
CPT/HCPCS: 32408; 71045; 71046; 77012; 85025; 85610; 85730; 94640; J3010; 36415; 88305; 88333; 88334; 88341; 88342; 99152; 99153; J2250; J7620

== ENCOUNTER 2024-11-26 06:17 | Observation (INO) | payer MEDICARE ==
[2024-11-26] MEDS ORDERED: Albuterol 200 PUFF (6.7GM INHALER) INH PRN (10:32)
[2024-11-26] MEDS ORDERED: Dextrose 5% in Water 1,000 ML IV PRN (10:33)
[2024-11-26] MEDS ORDERED: Insulin Lispro 100 UNIT/ML 10 ML VIAL SC PRN (10:33)
[2024-11-26] MEDS ORDERED: Dextrose 50% Abboject 50 ML SYRINGE SLOW IVP PRN (10:33)
[2024-11-26] MEDS ORDERED: Glucagon 1 MG/ML KIT IM PRN (10:33)
[2024-11-26] MEDS ORDERED: Acetaminophen 325 MG TAB PO PRN (10:34)
[2024-11-26] MEDS ORDERED: Calcium Carbonate 500 MG ChewTAB PO PRN (10:34)
[2024-11-26] MEDS ORDERED: Senokot S 8.6-50 MG TAB PO PRN (10:34)
[2024-11-26] MEDS ORDERED: Ondansetron PF 4 MG/2 ML Vial IVP PRN (10:34)
[2024-11-26] MEDS ORDERED: Ondansetron ODT 4 MG TAB PO PRN (10:34)
[2024-11-26] MEDS ORDERED: Acetaminophen 650 MG Suppository PR PRN (10:34)
[2024-11-26] MEDS: Mometasone 100 MCG HFA INHALER (RT USE) INH SCH (18:48)
[2024-11-27] MEDS: Ipratropium/Albuterol 3 ML NEB NEB SCH (06:44)
[2024-11-27] MEDS: Insulin Lispro 100 UNIT/ML 10 ML VIAL SC PRN (14:40)
[2024-11-27 16:20] VITALS: BP 137/79; TEMP 97.6
[2024-11-28] MEDS ORDERED: FLU (Fluarix Triv) TS24-25(6MOS UP)/PF 45 MCG/0.5 ML Syringe IM ONE (09:00)
== END 2024-11-27 16:55 | disposition home or self-care (01) ==
LOC: ERS 06:17 → SURG B 12:20
PROVIDERS: ADMIT Family Medicine; ATTEND Internal Medicine
DX: J95.850 Mechanical complication of respirator (principal); I11.0 Hypertensive heart disease with heart failure; I50.32 Chronic diastolic (congestive) heart failure; J96.21 Acute and chronic respiratory failure with hypoxia; J96.22 Acute and chronic respiratory failure with hypercapnia; J44.9 Chronic obstructive pulmonary disease, unspecified; C34.01 Malignant neoplasm of right main bronchus; D64.9 Anemia, unspecified; E11.9 Type 2 diabetes mellitus without complications; Z99.81 Dependence on supplemental oxygen; Z87.891 Personal history of nicotine dependence; Z79.51 Long term (current) use of inhaled steroids; Z79.899 Other long term (current) drug therapy
CPT/HCPCS: 82962; 94640 ×3; 99284; G0378 ×3; J1815; 36416; J7620

== ENCOUNTER 2024-12-07 09:58 | Inpatient (IN) | payer MEDICARE ==
[2024-12-07] MEDS ORDERED: Sodium Chloride 0.9% 100 ML ONE (10:17)
[2024-12-07] MEDS ORDERED: cefTRIAXone (ROCEPHIN) 2 GM VIAL ONE (10:17)
[2024-12-07] MEDS ORDERED: Magnesium 2 GM/50 ML BAG (IN WATER) ONE (10:49)
[2024-12-07] MEDS ORDERED: Azithromycin 500 MG VIAL ONE (10:49)
[2024-12-07] MEDS ORDERED: Ipratropium/Albuterol 3 ML NEB ONE (10:49)
[2024-12-07 11:05] LABS: #Basophils Less than 0.03 10x3/uL (0.0-0.2); %Basophils 0.2 % (0.0-1.0); %Eosinophils 0.8 % (0.0-10.0); %Lymphocytes 3.3 % (21.0-51.0); %Neutrophils 89.5 % (42.0-75.0); Hematocrit 39.6 % (42.0-52.0); Hemoglobin 12.4 g/dL (14.0-18.0); Mean Corpuscular HGB CONC 31.3 g/dL (32.0-36.0); Mean Corpuscular Hemoglobin 28.8 pg (27.0-31.0); Mean Corpuscular Volume 91.9 fL (78.0-98.0); Mean Platelet Volume 9.9 fL (7.4-10.4); Platelet Count 158 10x3/uL (130-400); RBC Distribution Width 13.9 % (11.5-14.5); Red Blood Cell (RBC) Count 4.31 mill/uL (4.70-6.10)
[2024-12-07 11:31] LABS: ALT (SGPT) 13 U/L (Less than 45); AST (SGOT) 20 U/L (11-34); Albumin 3.2 g/dL (3.1-4.5); Alkaline Phosphatase 118 U/L (40-110); Anion Gap 10 mmol/L (10-20); BUN (Urea Nitrogen) 12 mg/dL (8.4-25.7); Calc. Creatinine Clearance 0 mL/min (70-130); Carbon Dioxide 37 mmol/L (22-29); Chloride 96 mmol/L (98-107); Estimated GFR 104; Globulin 3.9 g/dL (2.4-3.5); Glucose 184 mg/dL (70-105); Magnesium 1.8 mg/dL (1.6-2.6); Potassium 4.3 mmol/L (3.5-5.1); Protein, Total 7.1 g/dL (6.0-8.3); Sodium 139 mmol/L (136-145)
[2024-12-07] MEDS ORDERED: Iopamidol-370 76% 500 ML MDV (1 ML CHARGE) ONE (12:02)
[2024-12-07 12:17] LABS: Troponin I Less than 0.010 ng/mL (< 0.028)
[2024-12-07] MEDS ORDERED: Acetaminophen 325 MG TAB PO PRN (13:20)
[2024-12-07] MEDS ORDERED: Acetaminophen 650 MG Suppository PR PRN (13:20)
[2024-12-07] MEDS ORDERED: Ketorolac Tromethamine 30 MG (1 mL) VIAL IVP PRN (13:20)
[2024-12-07] MEDS ORDERED: Ondansetron PF 4 MG/2 ML Vial IVP PRN (13:20)
[2024-12-07] MEDS ORDERED: Ipratropium/Albuterol 3 ML NEB NEB PRN (13:20)
[2024-12-07] MEDS ORDERED: Senokot S 8.6-50 MG TAB PO PRN (13:20)
[2024-12-07] MEDS ORDERED: Ondansetron ODT 4 MG TAB PO PRN (13:20)
[2024-12-07] MEDS ORDERED: Bisacodyl 5 MG TAB PO PRN (13:20)
[2024-12-07] MEDS ORDERED: Glucagon 1 MG/ML KIT IM PRN (13:22)
[2024-12-07] MEDS ORDERED: Dextrose 50% Abboject 50 ML SYRINGE SLOW IVP PRN (13:22)
[2024-12-07] MEDS ORDERED: Dextrose 5% in Water 1,000 ML IV PRN (13:22)
[2024-12-07] MEDS: Arformoterol 15 MCG/2 ML NEB NEB SCH ×2 (15:37→18:42)
[2024-12-07] MEDS: Budesonide 0.5 MG/2 ML NEB NEB SCH ×2 (15:37→18:44)
[2024-12-07] MEDS: Ipratropium/Albuterol 3 ML NEB NEB SCH (15:41)
[2024-12-07 16:18] LABS: Actual Bicarbonate (HCO3a) 34.4 mEq/L (22-28); Calcium, Ionized (arterial) 1.24 mmol/L (1.12-1.30); Carboxyhemoglobin (COHb) 1.7 gm% (0.0-3.0); Hematocrit-ABG 39 % (42.0-52.0); Hemoglobin (Hb) 13.2 g/dL (14.0-18.0); O2 Tension (PaO2), arterial 72.7 mmHg (> 80.0); Potassium - ABG Lab 4.79 mmol/L (3.70-5.30); pH, Arterial 7.225 (7.35-7.45)
[2024-12-07 16:19] LABS: CO2 Tension 84.9 mmHg (35.0-45.0); Puncture Site Left Radial artery
[2024-12-07 16:20] LABS: ALV-art Gradient 20.815 mmHg (0-20)
[2024-12-07] MEDS: guaiFENesin ER 600 MG TAB PO SCH (17:05)
[2024-12-07] MEDS: methylPREDNISolone Sod Succ 40 MG VIAL IVP SCH (17:06)
[2024-12-07] MEDS: Insulin Lispro 100 UNIT/ML 10 ML VIAL SC PRN (17:20)
[2024-12-07 19:07] LABS: Influenza A by NAA Not Detected (NotDetected); Influenza B by NAA Not Detected (NotDetected); RSV by NAA Not Detected (NotDetected); SARS-CoV-2 NAA Rapid Test Not Detected (NotDetected)
[2024-12-07] MEDS: Famotidine 20 MG TAB PO SCH (20:34)
[2024-12-08 06:31] LABS: #Basophils Less than 0.03 10x3/uL (0.0-0.2); #Eosinophils Less than 0.03 10x3/uL (0.0-0.7); %Basophils 0.1 % (0.0-1.0); %Eosinophils 0.1 % (0.0-10.0); %Lymphocytes 3.3 % (21.0-51.0); %Monocytes 4.5 % (0.0-10.0); %Neutrophils 91.4 % (42.0-75.0); Hematocrit 40.5 % (42.0-52.0); Hemoglobin 12.2 g/dL (14.0-18.0); Mean Corpuscular HGB CONC 30.1 g/dL (32.0-36.0); Mean Corpuscular Hemoglobin 28.7 pg (27.0-31.0); Mean Corpuscular Volume 95.3 fL (78.0-98.0); Mean Platelet Volume 10.5 fL (7.4-10.4); Platelet Count 170 10x3/uL (130-400); RBC Distribution Width 13.6 % (11.5-14.5); Red Blood Cell (RBC) Count 4.25 mill/uL (4.70-6.10)
[2024-12-08 06:47] LABS: Anion Gap 11 mmol/L (10-20); BUN (Urea Nitrogen) 16 mg/dL (8.4-25.7); Calc. Creatinine Clearance 143 mL/min (70-130); Calcium 9.3 mg/dL (7.8-10.44); Carbon Dioxide 38 mmol/L (22-29); Chloride 96 mmol/L (98-107); Estimated GFR 107; Glucose 227 mg/dL (70-105); Potassium 5.1 mmol/L (3.5-5.1); Sodium 140 mmol/L (136-145)
[2024-12-08] MEDS: Enoxaparin 40 MG (0.4 mL) SYRINGE SC SCH (09:17)
[2024-12-08] MEDS: guaiFENesin ER 600 MG TAB PO SCH (09:18)
[2024-12-08] MEDS: cefTRIAXone\\ROCEPHIN 2 GM in Sodium Chloride 0.9% 100 ML IVPB SCH (11:27)
[2024-12-08] MEDS: Azithromycin 500 MG in Sodium Chloride 0.9% 250 ML 250 ML IVPB SCH (11:27)
[2024-12-08] MEDS ORDERED: hydrALAZINE 20 MG/ML VIAL SLOW IVP PRN (13:52)
[2024-12-08] MEDS: Insulin Lispro 100 UNIT/ML 10 ML VIAL SC PRN (22:02)
[2024-12-09 03:30] LABS: #Basophils Less than 0.03 10x3/uL (0.0-0.2); #Eosinophils Less than 0.03 10x3/uL (0.0-0.7); %Basophils 0.1 % (0.0-1.0); %Lymphocytes 1.9 % (21.0-51.0); %Monocytes 4.1 % (0.0-10.0); %Neutrophils 93.5 % (42.0-75.0); Hematocrit 35.8 % (42.0-52.0); Hemoglobin 10.5 g/dL (14.0-18.0); Mean Corpuscular HGB CONC 29.3 g/dL (32.0-36.0); Mean Corpuscular Hemoglobin 28.6 pg (27.0-31.0); Mean Corpuscular Volume 97.5 fL (78.0-98.0); Mean Platelet Volume 9.9 fL (7.4-10.4); Platelet Count 188 10x3/uL (130-400); RBC Distribution Width 13.6 % (11.5-14.5); Red Blood Cell (RBC) Count 3.67 mill/uL (4.70-6.10)
[2024-12-09 04:05] LABS: Anion Gap 12 mmol/L (10-20); BUN (Urea Nitrogen) 27 mg/dL (8.4-25.7); Calc. Creatinine Clearance 121 mL/min (70-130); Calcium 9.1 mg/dL (7.8-10.44); Carbon Dioxide 33 mmol/L (22-29); Chloride 96 mmol/L (98-107); Estimated GFR 102; Glucose 334 mg/dL (70-105); Potassium 4.9 mmol/L (3.5-5.1); Sodium 136 mmol/L (136-145)
[2024-12-09] MEDS: cefTRIAXone (ROCEPHIN) 2 GM VIAL ONE (09:28)
[2024-12-09] MEDS: Amlodipine 5 MG TAB PO SCH (09:28)
[2024-12-09] MEDS: Insulin Glargine 30 UNITS/0.3 ML VIAL SC SCH (09:28)
[2024-12-09] MEDS: FLU (Fluarix Triv) TS24-25(6MOS UP)/PF 45 MCG/0.5 ML Syringe IM ONE (09:29)
[2024-12-09] MEDS: Morphine 4 MG/ML VIAL ONE (12:16)
[2024-12-09] MEDS: Morphine 4 MG/ML VIAL SLOW IVP SCH (12:21)
[2024-12-09] MEDS: Dexmedetomidine In 0.9 % NaCl 100 ML IV SCH (14:30)
[2024-12-10 04:29] LABS: #Basophils Less than 0.03 10x3/uL (0.0-0.2); #Eosinophils Less than 0.03 10x3/uL (0.0-0.7); %Basophils 0.1 % (0.0-1.0); %Lymphocytes 2.4 % (21.0-51.0); %Monocytes 2.8 % (0.0-10.0); %Neutrophils 94.2 % (42.0-75.0); Hematocrit 37.9 % (42.0-52.0); Hemoglobin 11.1 g/dL (14.0-18.0); Mean Corpuscular HGB CONC 29.3 g/dL (32.0-36.0); Mean Corpuscular Hemoglobin 28.9 pg (27.0-31.0); Mean Corpuscular Volume 98.7 fL (78.0-98.0); Mean Platelet Volume 10.4 fL (7.4-10.4); Platelet Count 198 10x3/uL (130-400); RBC Distribution Width 13.7 % (11.5-14.5); Red Blood Cell (RBC) Count 3.84 mill/uL (4.70-6.10)
[2024-12-10 04:43] LABS: Anion Gap 9 mmol/L (10-20); BUN (Urea Nitrogen) 32 mg/dL (8.4-25.7); Calc. Creatinine Clearance 122 mL/min (70-130); Calcium 9.3 mg/dL (7.8-10.44); Carbon Dioxide 40 mmol/L (22-29); Chloride 96 mmol/L (98-107); Estimated GFR 102; Glucose 271 mg/dL (70-105); Sodium 139 mmol/L (136-145)
[2024-12-10] MEDS ORDERED: Morphine 4 MG/ML VIAL SLOW IVP PRN (08:37)
[2024-12-10] MEDS: Insulin Glargine 30 UNITS/0.3 ML VIAL SC SCH (09:51)
[2024-12-10 10:36] LABS: Anion Gap 8 mmol/L (10-20); BUN (Urea Nitrogen) 36 mg/dL (8.4-25.7); Calc. Creatinine Clearance 125 mL/min (70-130); Calcium 9.2 mg/dL (7.8-10.44); Carbon Dioxide 42 mmol/L (22-29); Chloride 95 mmol/L (98-107); Estimated GFR 102; Glucose 353 mg/dL (70-105); Potassium 5.5 mmol/L (3.5-5.1); Sodium 139 mmol/L (136-145)
[2024-12-10] MEDS: LOKELMA 10 GM PACKET PO SCH (11:14)
[2024-12-10] MEDS: Sodium Polystyrene Sulfonate 15 GM (60 mL) BOT PO SCH (12:09)
[2024-12-10] MEDS: Sodium Chloride 0.45% 1,000 ML IV SCH (16:05)
[2024-12-11 06:07] LABS: #Basophils Less than 0.03 10x3/uL (0.0-0.2); #Eosinophils Less than 0.03 10x3/uL (0.0-0.7); %Lymphocytes 2.6 % (21.0-51.0); %Monocytes 3.3 % (0.0-10.0); %Neutrophils 93.6 % (42.0-75.0); Hematocrit 37.8 % (42.0-52.0); Hemoglobin 11.2 g/dL (14.0-18.0); Mean Corpuscular HGB CONC 29.6 g/dL (32.0-36.0); Mean Corpuscular Hemoglobin 28.9 pg (27.0-31.0); Mean Corpuscular Volume 97.4 fL (78.0-98.0); Mean Platelet Volume 10.4 fL (7.4-10.4); Platelet Count 205 10x3/uL (130-400); RBC Distribution Width 13.7 % (11.5-14.5); Red Blood Cell (RBC) Count 3.88 mill/uL (4.70-6.10)
[2024-12-11 06:29] LABS: Anion Gap 7 mmol/L (10-20); BUN (Urea Nitrogen) 32 mg/dL (8.4-25.7); Calc. Creatinine Clearance 123 mL/min (70-130); Calcium 8.7 mg/dL (7.8-10.44); Carbon Dioxide 43 mmol/L (22-29); Chloride 91 mmol/L (98-107); Estimated GFR 105; Glucose 213 mg/dL (70-105); Potassium 4.4 mmol/L (3.5-5.1); Sodium 137 mmol/L (136-145)
[2024-12-11] MEDS ORDERED: Morphine 4 MG/ML VIAL SLOW IVP PRN (10:49)
[2024-12-11] MEDS: ALPRAZolam 0.25 MG TAB PO PRN (11:31)
[2024-12-11] MEDS: methylPREDNISolone Sod Succ 40 MG VIAL IVP SCH (20:41)
[2024-12-12 05:44] LABS: #Basophils Less than 0.03 10x3/uL (0.0-0.2); #Eosinophils Less than 0.03 10x3/uL (0.0-0.7); %Monocytes 3.7 % (0.0-10.0); %Neutrophils 91.8 % (42.0-75.0); Hematocrit 37.5 % (42.0-52.0); Hemoglobin 11.3 g/dL (14.0-18.0); Mean Corpuscular HGB CONC 30.1 g/dL (32.0-36.0); Mean Corpuscular Hemoglobin 28.6 pg (27.0-31.0); Mean Corpuscular Volume 94.9 fL (78.0-98.0); Mean Platelet Volume 10.4 fL (7.4-10.4); Platelet Count 189 10x3/uL (130-400); RBC Distribution Width 13.7 % (11.5-14.5); Red Blood Cell (RBC) Count 3.95 mill/uL (4.70-6.10)
[2024-12-12 06:25] LABS: Anion Gap 12 mmol/L (10-20); BUN (Urea Nitrogen) 26 mg/dL (8.4-25.7); Calc. Creatinine Clearance 106 mL/min (70-130); Calcium 8.6 mg/dL (7.8-10.44); Carbon Dioxide 38 mmol/L (22-29); Chloride 96 mmol/L (98-107); Estimated GFR 101; Glucose 259 mg/dL (70-105); Potassium 5.4 mmol/L (3.5-5.1); Sodium 141 mmol/L (136-145)
[2024-12-12] MEDS: Insulin Glargine 30 UNITS/0.3 ML VIAL SC SCH (10:29)
[2024-12-12] MEDS: Insulin Lispro 100 UNIT/ML 10 ML VIAL SC SCH (12:47)
[2024-12-13 05:01] LABS: #Basophils Less than 0.03 10x3/uL (0.0-0.2); %Basophils 0.1 % (0.0-1.0); %Eosinophils 0.6 % (0.0-10.0); %Lymphocytes 8.3 % (21.0-51.0); %Neutrophils 82.2 % (42.0-75.0); Hematocrit 37.4 % (42.0-52.0); Hemoglobin 11.4 g/dL (14.0-18.0); Mean Corpuscular HGB CONC 30.5 g/dL (32.0-36.0); Mean Corpuscular Hemoglobin 28.5 pg (27.0-31.0); Mean Corpuscular Volume 93.5 fL (78.0-98.0); Mean Platelet Volume 10.3 fL (7.4-10.4); Platelet Count 169 10x3/uL (130-400); RBC Distribution Width 13.7 % (11.5-14.5)
[2024-12-13 05:02] LABS: Anion Gap 8 mmol/L (10-20); BUN (Urea Nitrogen) 25 mg/dL (8.4-25.7); Calc. Creatinine Clearance 123 mL/min (70-130); Calcium 8.4 mg/dL (7.8-10.44); Carbon Dioxide 37 mmol/L (22-29); Chloride 100 mmol/L (98-107); Estimated GFR 105; Glucose 172 mg/dL (70-105); Sodium 141 mmol/L (136-145)
[2024-12-13] MEDS: methylPREDNISolone Sod Succ 40 MG VIAL IVP SCH (09:27)
[2024-12-13] MEDS: Ipratropium/Albuterol 3 ML NEB NEB SCH (14:57)
[2024-12-13] MEDS: Amoxicillin/Potassium Clav 875 MG TAB PO SCH (20:13)
[2024-12-14 05:02] LABS: #Basophils Less than 0.03 10x3/uL (0.0-0.2); %Eosinophils 1.1 % (0.0-10.0); %Lymphocytes 9.5 % (21.0-51.0); %Monocytes 7.4 % (0.0-10.0); Hematocrit 38.3 % (42.0-52.0); Hemoglobin 11.8 g/dL (14.0-18.0); Mean Corpuscular HGB CONC 30.8 g/dL (32.0-36.0); Mean Corpuscular Hemoglobin 28.8 pg (27.0-31.0); Mean Corpuscular Volume 93.4 fL (78.0-98.0); Mean Platelet Volume 10.2 fL (7.4-10.4); Platelet Count 169 10x3/uL (130-400); RBC Distribution Width 13.9 % (11.5-14.5)
[2024-12-14 05:35] VITALS: BMI 27.8
[2024-12-14 06:10] LABS: Anion Gap 11 mmol/L (10-20); BUN (Urea Nitrogen) 18 mg/dL (8.4-25.7); Calc. Creatinine Clearance 114 mL/min (70-130); Calcium 8.6 mg/dL (7.8-10.44); Carbon Dioxide 36 mmol/L (22-29); Chloride 98 mmol/L (98-107); Estimated GFR 104; Glucose 155 mg/dL (70-105); Potassium 4.3 mmol/L (3.5-5.1); Sodium 141 mmol/L (136-145)
[2024-12-14] MEDS: predniSONE 20 MG TAB PO SCH (08:14)
[2024-12-15 09:12] VITALS: BMI 27.8
[2024-12-16] MEDS: predniSONE 20 MG TAB PO SCH (08:39)
[2024-12-16] MEDS: traMADol HCl 50 MG TAB PO PRN (08:43)
[2024-12-16 14:16] VITALS: BP 149/78; TEMP 98.2
== END 2024-12-16 11:45 | disposition home or self-care (01) | DRG 193 ==
LOC: ERS 09:58 → MSONC 15:26 → IMCU/EMU 17:48 → T4-A 12-14 12:00
PROVIDERS: ADMIT Family Medicine; ATTEND Hospitalist
PROC: 5A09557 Assistance with Respiratory Ventilation, Greater than 96 Consecutive Hours, Continuous Positive Airway Pressure (ICD-10-PCS; principal; 2024-12-07)
PROC: 4A033R1 Measurement of Arterial Saturation, Peripheral, Percutaneous Approach (ICD-10-PCS; 2024-12-07)
DX: J18.9 Pneumonia, unspecified organism (principal); J96.21 Acute and chronic respiratory failure with hypoxia; J96.22 Acute and chronic respiratory failure with hypercapnia; C34.91 Malignant neoplasm of unspecified part of right bronchus or lung; J90 Pleural effusion, not elsewhere classified; J98.11 Atelectasis; J44.1 Chronic obstructive pulmonary disease with (acute) exacerbation; I50.32 Chronic diastolic (congestive) heart failure; J44.0 Chronic obstructive pulmonary disease with (acute) lower respiratory infection; Z51.5 Encounter for palliative care; I11.0 Hypertensive heart disease with heart failure; E11.9 Type 2 diabetes mellitus without complications; R59.0 Localized enlarged lymph nodes; D50.0 Iron deficiency anemia secondary to blood loss (chronic); Z87.891 Personal history of nicotine dependence
CPT/HCPCS: 0241U; 36415; 36416; 36600; 71275; 80048; 80053; 82805; 83605; 83735; 83880; 84145; 84484; 85025; 86141; 87040; 93005; 94640; 94660; 94760; 96365; 96366; 96367; J0456; J0696; J1650; J1815; J2270; J2919; J3475; J7050; J7512; J7620; J7626; Q9967

== ENCOUNTER 2025-06-26 13:01 | Outpatient (CLI) | payer MEDICARE | END 2025-06-26 13:02 | disposition home or self-care (01) | LOC: RAD 13:01 | PROVIDERS: ATTEND Internal Medicine | DX: J44.9 Chronic obstructive pulmonary disease, unspecified (principal); J98.4 Other disorders of lung; Q79.1 Other congenital malformations of diaphragm; Z95.818 Presence of other cardiac implants and grafts | CPT/HCPCS: 71046 ==